=== PATIENT | female | born 1960 ===

== ENCOUNTER → 2021-08-16 10:17 | Outpatient (BNVA) | payer OTHER, SELFPAY | PROVIDERS: PCP Internal Medicine; Visit Provider Nurse Practitioner Family ==

== ENCOUNTER 2021-09-20 08:27 | Outpatient (REF) | payer OTHER, SELFPAY ==
[2021-09-20 11:13] LABS: Hematocrit 24.3 % (37-47); Mean Corpuscular Hemoglobin 20.1 pg (27.0-33.0); Mean Corpuscular Volume 71.9 fL (80-98); Mean Platelet Volume 10.7 fL (9.4-12.3); Platelet Count 454 X10*3/uL (160-400); Red Blood Count 3.38 X10*6/uL (4.20-5.50); Red Cell Distribution Width 17.6 % (11.0-16.0); White Blood Count 7.4 X10*3/uL (4.8-10.8)
[2021-09-20 11:20] LABS: Hemoglobin 6.8 g/dl (12.0-16.0)
[2021-09-20 11:49] LABS: Alanine Aminotransferase 21 U/L (0-31); Albumin Level 4.6 g/dL (3.5-5.0); Alkaline Phosphatase 139 U/L (39-117); Anion Gap 15 (12-20); Aspartate Amino Transferase 20 U/L (5-31); Bilirubin Total 0.4 mg/dL (0.0-1.0); Blood Urea Nitrogen 19 mg/dL (9-16); C Reactive Protein 0.55 mg/dL (< or = 0.50); Calcium 9.3 mg/dL (8.4-10.2); Carbon Dioxide 22 mmol/L (22-29); Chloride 108 mmol/L (96-108); Estimated Glomerular Filt Rate > 60; Glucose Random 118 mg/dL (60-115); Lipase 147 U/L (8-78); Potassium 4.6 mmol/L (3.3-5.1); Sodium 140 mmol/L (135-145); Total Protein 7.2 g/dL (6.5-8.0)
[2021-09-20 11:55] LABS: TSH reflex Free T4 2.63 uIU/mL (0.32-4.0)
[2021-09-20 12:40] LABS: Folate 14.4 ng/mL (> or = 4.0); Vitamin B12 249 pg/mL (200-900)
[2021-09-23 13:51] LABS: Transglutaminase Ab IgG <1.0 U/mL; Transglutaminase IgA <1.0 U/mL
[2021-09-29 09:51] LABS: Vitamin D 25-OH, D2 <4 ng/mL; Vitamin D 25-OH, D3 13 ng/mL; Vitamin D 25-OH, Total 13 ng/mL (30-100)
== END 2021-09-20 08:28 | disposition home or self-care (01) ==
LOC: HO.LAB 08:27
PROVIDERS: Referring Provider Internal Medicine; Visit Provider Nurse Practitioner Family
DX: R10.11 Right upper quadrant pain (principal); K58.9 Irritable bowel syndrome, unspecified; R19.7 Diarrhea, unspecified; E55.9 Vitamin D deficiency, unspecified; R14.0 Abdominal distension (gaseous); R06.02 Shortness of breath; K58.2 Mixed irritable bowel syndrome; I10 Essential (primary) hypertension
CPT/HCPCS: 36415; 80053; 82306; 82607; 82746; 83516; 83690; 84443; 85027; 86140

== ENCOUNTER 2021-09-20 12:35 | Observation (INO) | payer OTHER, SELFPAY ==
[2021-09-20] VITALS (12 sets, daily range): BP systolic 138–190; BP diastolic 52–96; PULSE 77–91; RESP 16–18; TEMP 36.2–37.1; O2SAT 97–100; BMI 25.8
--- NOTE | 2021-09-20 14:23 | ED.GENADULT ---
HPI - General Adult General Chief complaint: Recheck/Abnormal Lab/Rx Stated complaint: transfusion- sent by gastro Time Seen by Provider: 09/20/21 13:55 Source: patient Mode of arrival: ambulatory Limitations: no limitations History of Present Illness HPI narrative: 61-year-old female who presents emergency department for evaluation of anemia found on routine labs done by the patient's gastroenterology provider today. The patient states that since she went into menopause 3 years prior she has had problems with her stomach. She states that any time she eats she develops diarrhea. She was seen by her Gastroenterology provider, TRIPP Pickard. Patient had a CBC and the H&H was 6.8 and 24.3 with an MCV of 71.9. The patient has not noticed any blood in her stool or dark tarry stool. She states that she has noted over the past 5-6 weeks dyspnea on exertion which is gotten progressively worse. She denied lightheadedness, dizziness, chest pain, nausea, vomiting or abdominal pain. The patient states that her sister at age 45 of colon cancer and she has had at least 2 colonoscopies. She states her last colonoscopy was done on 03/03/2021. She denied being ill in any other way. She denied fever, chills, myalgias, arthralgias. Patient did complete her 2 shot Pfizer COVID 19 vaccination with her 2nd dose being given in March of 2021. Related Data Home Medications Medication Instructions Recorded Confirmed aspirin 81 mg tablet,delayed 81 mg PO DAILY 08/16/21 release atorvastatin 20 mg tablet 20 mg PO DAILY 08/16/21 chlorthalidone 50 mg tablet 50 mg PO DAILY 08/16/21 diltiazem HCl 60 mg 60 mg PO DAILY 08/16/21 capsule,extended release 12 hr duloxetine 30 mg capsule,delayed 30 mg PO BID 08/16/21 release paroxetine HCl 10 mg tablet mg PO 08/16/21 Previous Rx's Medication Instructions Recorded dicyclomine 10 mg capsule 10 mg PO QID 90 Days #360 cap 01/18/21 dicyclomine 20 mg tablet 20 mg PO QID 90 Days #360 tab 01/18/21 methylcellulose (laxative) 500 mg 500 mg PO DAILY #30 tab 08/16/21 tablet (Citrucel) docusate sodium 100 mg capsule 100 mg PO BEDTIME #30 cap 09/20/21 Allergies Allergy/AdvReac Type Severity Reaction Status Date / Time OZIEL Inhibitors Allergy Unknown ALL SORTS Unverified 08/11/20 17:18 [OZIEL INHIBITORS] OF DIFF RXNS hydrochlorothiazide Allergy Unknown dizziness Verified 03/30/20 00:00 meloxicam Allergy Unknown Verified 03/30/20 00:00 penicillin V Allergy Unknown Verified 03/30/20 00:00 Penicillins [PENICILLINS] Allergy Unknown SELLING,DIFF Unverified 08/11/20 17:18 BREATHING Sulfa (Sulfonamide Allergy Unknown RASH,ITCHY Unverified 08/11/20 17:18 Antibiotics) [SULFA (SULFONAMIDE ANTIBIOTICS)] Oziel Inhibitors Allergy Unknown Uncoded 03/30/20 00:00 Moexipril HCl Allergy Unknown Uncoded 03/30/20 00:00 Review of Systems Review of Systems: Yes all other systems are reviewed and are negative PMFSH Past Medical History [facility] Narrative: Past medical history: Hypertension, hyperlipidemia, hypoglycemia, osteoarthritis. Past surgical history: None. Social history: The patient denies tobacco, alcohol and drug use. Medical History (Updated 09/20/21 @ 16:30 by Vikas Dennis MD) Diverticulosis Surgical History (Updated 09/20/21 @ 08:42 by Alaina Munoz CMA) Hx of colonoscopy Family History Family History (Updated 08/16/21 @ 10:40 by Joelle Carter) Father Cancer Sister Colon cancer Social History Social History (Updated 08/16/21 @ 10:26 by Joelle Carter) Household Members: Family Alcohol intake: never Patient Tobacco Use Status: Never used Tobacco Use of substances other than those prescribed or required for medical reasons: No Advance Directives: No Physical Exam Vital Signs: Vital Signs: Last Vital Signs Temp 98.7 F 09/20/21 15:49 Pulse 77 09/20/21 15:49 Resp 16 09/20/21 15:49 BP 164/52 H 09/20/21 15:49 Pulse Ox 99 09/20/21 15:49 Body Mass Index 25.8 Const: Other: Very pleasant cooperative female patient, she does appear to be pale, she answers all questions appropriately, she is not in distress HENMT: Head: Yes normal to inspection, Yes normocephalic and Yes atraumatic Ears: external ears normal General nose exam: Normal external nose present Face and sinus: Yes normal facial exam Mouth: Normal oral and palatal mucosa present Throat: Yes posterior oropharynx normal Eyes: General: appearance normal, both eyes and all related structures Pupils: Equal, round and reactive pupils present Neck: Neck: Yes normal visual inspection, Yes no lymphadenopathy, Yes trachea midline and Yes supple Chest: Chest palpation & inspection: normal inspection of the chest and normal palpation of entire chest wall Resp: Effort & Inspection: normal respiratory effort and able to speak in complete sentences Auscultation: clear to auscultation bilaterally Cardio: Rate: regular rate Rhythm: regular rhythm Heart sounds: S1 normal heart sound present, S2 normal heart sound present and no murmurs GI: Inspection: Yes normal to inspection Palpation (GI): Soft to palpation, nontender and no guarding Auscultation: normal bowel sounds Rectal Exam - Female: visual inspection normal, normal sphincter tone and heme positive stool (Stool was soft, brown) : General: Yes no CVA tenderness Back/Spine/Pelvis: Back: no CVA tenderness Skin: General skin exam: no rashes or lesions noted Neuro: Cranial nerves: Yes CN's II-XII intact bilaterally and Yes Equal, round and reactive pupils present Cognition (Neuro): normal cognition Motor exam (neuro): 5/5 motor strength present throughout Extrem: General: Yes normal to inspection Psych: Appearance: grossly normal Speech and movement: Normal speech and movement present Affect: normal affect Attitude: cooperative Thought process: Normal thought process present Thought content: Normal thought content present Course Course Course Narrative: 61-year-old female who was referred to the emergency department from her GI provider for evaluation of microcytic anemia which was unexpected. The patient sees the GI provider for diarrhea after eating which is been going on for at least 3 years since the patient started her menopause. The patient did not have any abdominal pain and she did not notice and change in her bowel movements except for her diarrhea. She has been having dyspnea on exertion for 5 weeks which is gotten progressively worse. Vital signs revealed an elevated blood pressure of 173/69, otherwise were unremarkable. The patient had no abdominal tenderness. On her rectal examination she did have soft brown stool which was Hemoccult positive. I did order a CBC, CMP, lipase, PT/INR, PTT, type and screen, COVID-19 test, iron profile. I also ordered 2 units of packed red blood cells transfused. 1628: Laboratory evaluation: CBC did confirm that she is anemic with an H&H of 6.9 and 24.9. She has a low white blood count of 3420, platelet count of 337221. PT/INR PTT were normal. Chemistries revealed an elevated BUN of 18, elevated glucose of 127. Alk-phos was elevated 143. Iron studies are consistent with iron deficient anemia. I did discuss the patient's presentation with the covering hospitalist the patient will be admitted for transfusions and further evaluation of her iron deficient anemia. Of note, on my bedside Hemoccult test I felt that the patient was Hemoccult positive, the 1 that I sent to lab however was interpreted as Hemoccult negative by the laboratory service. Medical Decision Making Lab Data Result diagrams: 09/20/21 14:26 09/20/21 14:26 Labs: Lab Results 09/20/21 09/20/21 09/20/21 Range/Units 14:26 14:26 14:26 WBC 7.7 (4.8-10.8) X10*3/uL RBC 3.42 L (4.20-5.50) X10*6/uL Hgb 6.9 L* (12.0-16.0) g/dl Hct 24.9 L (37-47) % MCV 72.8 L (80-98) fL MCH 20.2 L (27.0-33.0) pg MCHC 27.7 L (31.0-35.0) g/dl RDW 17.6 H (11.0-16.0) % Plt Count 460 H (160-400) X10*3/uL MPV 10.3 (9.4-12.3) fL Immature Gran % (Auto) 0.3 (0.0-0.4) % Neut % (Auto) 55.1 (45-73) % Lymph % (Auto) 33.6 (20-40) % [place] % (Auto) 7.1 (2-11) % Eos % (Auto) 3.4 (0-4) % Baso % (Auto) 0.5 (0-2) % Lymph # (Auto) 2.6 (1.2-4.9) X10*3/uL [place] # (Auto) 0.6 (0.1-1.2) X10*3/uL Eos # (Auto) 0.3 (0.0-0.4) X10*3/uL Baso # (Auto) 0.0 (0.0-0.2) X10*3/uL Abs Immat Gran (auto) 0.02 (0.00-0.03) X10*3/uL Absolute Neuts (auto) 4.3 (2.0-8.3) X10*3/uL Absolute Nucleated RBC 0.000 (0.0-0.012) X10*3/uL Nucleated RBC % (auto) 0.0 (0.0-0.2) /100WBC PT 11.9 (9.9-13.0) SEC INR 1.0 (0.9-1.1) APTT 37.6 (24.1-38.0) SEC Sodium 139 (135-145) mmol/L Potassium 4.0 (3.3-5.1) mmol/L Chloride 106 (96-108) mmol/L Carbon Dioxide 22 (22-29) mmol/L Anion Gap 15 (12-20) BUN 18 H (9-16) mg/dL Creatinine 0.94 (0.5-1.4) mg/dL Estim Creat Clear Calc 65.7 Estimated GFR > 60 Random Glucose 127 H (60-115) mg/dL Calcium 9.5 (8.4-10.2) mg/dL Iron 14 L (30-160) mcg/dL TIBC 594 H (228-428) mcg/dL % Saturation 2 L (15-50) % Unsat Iron Binding 580 ug/dL Total Bilirubin 0.4 (0.0-1.0) mg/dL AST 20 (5-31) U/L ALT 23 (0-31) U/L Alkaline Phosphatase 143 H (39-117) U/L Total Protein 7.5 (6.5-8.0) g/dL Albumin 4.8 (3.5-5.0) g/dL Lipase 70 (8-78) U/L Stool Occult Blood (NEGATIVE) COVID-19 (DEYANIRA) (Negative) COVID-19 Clin Com Blood Type Antibody Screen Crossmatch 09/20/21 09/20/21 09/20/21 Range/Units 14:47 14:47 15:17 WBC (4.8-10.8) X10*3/uL RBC (4.20-5.50) X10*6/uL Hgb (12.0-16.0) g/dl Hct (37-47) % MCV (80-98) fL MCH (27.0-33.0) pg MCHC (31.0-35.0) g/dl RDW (11.0-16.0) % Plt Count (160-400) X10*3/uL MPV (9.4-12.3) fL Immature Gran % (Auto) (0.0-0.4) % Neut % (Auto) (45-73) % Lymph % (Auto) (20-40) % [place] % (Auto) (2-11) % Eos % (Auto) (0-4) % Baso % (Auto) (0-2) % Lymph # (Auto) (1.2-4.9) X10*3/uL [place] # (Auto) (0.1-1.2) X10*3/uL Eos # (Auto) (0.0-0.4) X10*3/uL Baso # (Auto) (0.0-0.2) X10*3/uL Abs Immat Gran (auto) (0.00-0.03) X10*3/uL Absolute Neuts (auto) (2.0-8.3) X10*3/uL Absolute Nucleated RBC (0.0-0.012) X10*3/uL Nucleated RBC % (auto) (0.0-0.2) /100WBC PT (9.9-13.0) SEC INR (0.9-1.1) APTT (24.1-38.0) SEC Sodium (135-145) mmol/L Potassium (3.3-5.1) mmol/L Chloride (96-108) mmol/L Carbon Dioxide (22-29) mmol/L Anion Gap (12-20) BUN (9-16) mg/dL Creatinine (0.5-1.4) mg/dL Estim Creat Clear Calc Estimated GFR Random Glucose (60-115) mg/dL Calcium (8.4-10.2) mg/dL Iron (30-160) mcg/dL TIBC (228-428) mcg/dL % Saturation (15-50) % Unsat Iron Binding ug/dL Total Bilirubin (0.0-1.0) mg/dL AST (5-31) U/L ALT (0-31) U/L Alkaline Phosphatase (39-117) U/L Total Protein (6.5-8.0) g/dL Albumin (3.5-5.0) g/dL Lipase (8-78) U/L Stool Occult Blood NEGATIVE (NEGATIVE) COVID-19 (DEYANIRA) Negative (Negative) COVID-19 Clin Com See Note Blood Type A Positive Antibody Screen NEGATIVE Crossmatch See Detail Discharge Plan Discharge Clinical Impression: Microcytic anemia Patient Disposition: Admitted As Inpatient Prescriptions: No Action dicyclomine 20 mg tablet 20 mg PO QID 90 Days Qty: 360 RF: 3 dicyclomine 10 mg capsule 10 mg PO QID 90 Days Qty: 360 RF: 3 Citrucel 500 mg tablet 500 mg PO DAILY Qty: 30 RF: 2 docusate sodium 100 mg capsule 100 mg PO BEDTIME Qty: 30 RF: 3
[2021-09-20 14:37] LABS: MANUAL DIFF FLAG NO
[2021-09-20 14:40] LABS: Basophils Percent Auto 0.5 % (0-2); Eosinophils Absolute Auto 0.3 X10*3/uL (0.0-0.4); Eosinophils Percent Auto 3.4 % (0-4); Hematocrit 24.9 % (37-47); Imm Gran Abs Auto 0.02 X10*3/uL (0.00-0.03); Imm Gran Pct Auto 0.3 % (0.0-0.4); Lymphocytes Absolute Auto 2.6 X10*3/uL (1.2-4.9); Lymphocytes Percent Auto 33.6 % (20-40); Mean Corpuscular HGB Conc 27.7 g/dl (31.0-35.0); Mean Corpuscular Hemoglobin 20.2 pg (27.0-33.0); Mean Corpuscular Volume 72.8 fL (80-98); Mean Platelet Volume 10.3 fL (9.4-12.3); Monocytes Absolute Auto 0.6 X10*3/uL (0.1-1.2); Monocytes Percent Auto 7.1 % (2-11); Neutrophils Absolute Auto 4.3 X10*3/uL (2.0-8.3); Neutrophils Percent Auto 55.1 % (45-73); Platelet Count 460 X10*3/uL (160-400); Red Blood Count 3.42 X10*6/uL (4.20-5.50); Red Cell Distribution Width 17.6 % (11.0-16.0); White Blood Count 7.7 X10*3/uL (4.8-10.8)
[2021-09-20 14:42] LABS: Prothrombin Time 11.9 SEC (9.9-13.0)
[2021-09-20 14:45] LABS: Partial Thromboplastin Time 37.6 SEC (24.1-38.0)
[2021-09-20 14:46] LABS: Hemoglobin 6.9 g/dl (12.0-16.0)
[2021-09-20 15:25] LABS: OBS Int Ctl Valid YES; OBS1 NEGATIVE (NEGATIVE)
[2021-09-20 15:27] LABS: COVID-19 Test Negative (Negative)
[2021-09-20 15:59] LABS: Alanine Aminotransferase 23 U/L (0-31); Albumin Level 4.8 g/dL (3.5-5.0); Alkaline Phosphatase 143 U/L (39-117); Anion Gap 15 (12-20); Aspartate Amino Transferase 20 U/L (5-31); Bilirubin Total 0.4 mg/dL (0.0-1.0); Blood Urea Nitrogen 18 mg/dL (9-16); Calcium 9.5 mg/dL (8.4-10.2); Carbon Dioxide 22 mmol/L (22-29); Chloride 106 mmol/L (96-108); Creatinine Clr Calc Pharmacy 65.7; Estimated Glomerular Filt Rate > 60; Glucose Random 127 mg/dL (60-115); Iron 14 mcg/dL (30-160); Lipase 70 U/L (8-78); Percent Iron Saturation 2 % (15-50); Sodium 139 mmol/L (135-145); Total Iron Binding Capacity 594 mcg/dL (228-428); Total Protein 7.5 g/dL (6.5-8.0); Unsaturated Iron Binding 580 ug/dL
--- NOTE | 2021-09-20 16:35 | P.HPHOSP_ITS ---
History of Present Illness Date of Service: 09/20/21 Chief Complaint: Shortness of breath 61-year-old female sent in from a GI office for anemia of 6.8. Patient has been feeling short of breath and fatigue for about 6 weeks, worse on exertion. She has also been complaining of on and off diarrhea for 3 years. For this she has been following with Gastroenterology and has been decently treated with Bentyl. Patient is postmenopausal and denies any gynecological or gastroenterology bleeding. Patient is on aspirin for unconfirmed, suspected coronary disease. In emergency department hemoglobin was 6.9, labs consistent with iron deficiency with a saturation 2%. Review of Systems Review of Systems: Constitutional: Denies fever, denies Chills Eyes: denies blurry vision ENT: denies sore throat CVS: denies chest pain Respiratory: dyspnea GI: no abdominal pain : denies dysuria MSK: denies neck pain Skin: denies rash Neuro: denies specific motor weakness Psych: denies suicidal ideation Endocrine: denies heat/cold intolerance Hematologic: denies easy bleeding Allergy: denies hives [facility] Medical History (Updated 09/20/21 @ 16:34 by Anil Mccullough MD) Diverticulosis HLD (hyperlipidemia) HTN (hypertension) Iron (Fe) deficiency anemia Family History (Updated 09/20/21 @ 16:35 by Anil Mccullough MD) Father Cancer Sister Colon cancer Brother CAD (coronary artery disease) Pertinent family history: . Surgical History (Updated 09/20/21 @ 08:42 by Alaina Munoz CMA) Hx of colonoscopy Social History (Updated 08/16/21 @ 10:26 by Joelle Carter) Household Members: Family Alcohol intake: never Patient Tobacco Use Status: Never used Tobacco Use of substances other than those prescribed or required for medical reasons: No Advance Directives: No Meds Allergies Allergy/AdvReac Type Severity Reaction Status Date / Time OZIEL Inhibitors Allergy Unknown ALL SORTS Unverified 08/11/20 17:18 [OZIEL INHIBITORS] OF DIFF RXNS hydrochlorothiazide Allergy Unknown dizziness Verified 03/30/20 00:00 meloxicam Allergy Unknown Verified 03/30/20 00:00 penicillin V Allergy Unknown Verified 03/30/20 00:00 Penicillins [PENICILLINS] Allergy Unknown SELLING,DIFF Unverified 08/11/20 17:18 BREATHING Sulfa (Sulfonamide Allergy Unknown RASH,ITCHY Unverified 08/11/20 17:18 Antibiotics) [SULFA (SULFONAMIDE ANTIBIOTICS)] Oziel Inhibitors Allergy Unknown Uncoded 03/30/20 00:00 Moexipril HCl Allergy Unknown Uncoded 03/30/20 00:00 Active Medications: Current Medications Acetaminophen (Acetaminophen 325 Mg Tablet) 650 mg PO Q6H PRN PRN Reason: Pain, Mild (Pain Scale 1-3) Amlodipine Besylate (Amlodipine Besylate 5 Mg Tablet) 5 mg PO DAILY [facility]; Protocol Cyanocobalamin (Cyanocobalamin (Vitamin B-12) 1,000 Mcg Tablet) 1,000 mcg PO DAILY [facility] Pharmacy Consult (Consult Rx Perform Med Rec) 1 each MISCELLANE ONCE PRN PRN Reason: Consult order Sodium Chloride (0.9 % Sodium Chloride Flush 3 Ml Syringe) 3 ml IVFLUSH QSHIFT [facility] Home Medications Medication Instructions Recorded Confirmed Last Taken Type aspirin 81 mg tablet,delayed 81 mg PO DAILY 08/16/21 Unknown History release atorvastatin 20 mg tablet 20 mg PO DAILY 08/16/21 Unknown History chlorthalidone 50 mg tablet 50 mg PO DAILY 08/16/21 Unknown History diltiazem HCl 60 mg 60 mg PO DAILY 08/16/21 Unknown History capsule,extended release 12 hr duloxetine 30 mg capsule,delayed 30 mg PO BID 08/16/21 Unknown History release paroxetine HCl 10 mg tablet mg PO 08/16/21 Unknown History Physical Exam Vital Signs and Narrative: Vital Signs: Last Vital Signs Temp 98.7 F 09/20/21 15:49 Pulse 77 09/20/21 15:49 Resp 16 09/20/21 15:49 BP 164/52 H 09/20/21 15:49 Pulse Ox 99 09/20/21 15:49 Body Mass Index 25.8 General: no acute distress HEENT: atraumatic Neck: normal to visual inspection CVS: S1, S2, RRR Resp: CTA bilateral Chest: non tender GI: soft, non tender, non distended : no CVA tenderness Skin: no rashes Extremities: no edema Neuro: Oriented X3, grossly intact Psych: cooperative Results Labs CBC and Chem 7: 09/20/21 14:26 09/20/21 14:26 Labs: Laboratory Results - last 24 hr 09/20/21 09/20/21 09/20/21 14:26 14:26 14:26 MCV 72.8 L MCH 20.2 L MCHC 27.7 L RDW 17.6 H Plt Count 460 H MPV 10.3 Immature Gran % (Auto) 0.3 Neut % (Auto) 55.1 Lymph % (Auto) 33.6 [place] % (Auto) 7.1 Eos % (Auto) 3.4 Baso % (Auto) 0.5 Lymph # (Auto) 2.6 [place] # (Auto) 0.6 Eos # (Auto) 0.3 Baso # (Auto) 0.0 Abs Immat Gran (auto) 0.02 Absolute Neuts (auto) 4.3 Absolute Nucleated RBC 0.000 Nucleated RBC % (auto) 0.0 PT 11.9 INR 1.0 APTT 37.6 Anion Gap 15 Estim Creat Clear Calc 65.7 Estimated GFR > 60 Random Glucose 127 H Calcium 9.5 Iron 14 L TIBC 594 H % Saturation 2 L Unsat Iron Binding 580 Total Bilirubin 0.4 AST 20 ALT 23 Alkaline Phosphatase 143 H Total Protein 7.5 Albumin 4.8 Lipase 70 Stool Occult Blood COVID-19 (DEYANIRA) COVID-19 [employer]ix Com Blood Type Antibody Screen Crossmatch 09/20/21 09/20/21 09/20/21 14:47 14:47 15:17 MCV MCH MCHC RDW Plt Count MPV Immature Gran % (Auto) Neut % (Auto) Lymph % (Auto) [place] % (Auto) Eos % (Auto) Baso % (Auto) Lymph # (Auto) [place] # (Auto) Eos # (Auto) Baso # (Auto) Abs Immat Gran (auto) Absolute Neuts (auto) Absolute Nucleated RBC Nucleated RBC % (auto) PT INR APTT Anion Gap Estim Creat Clear Calc Estimated GFR Random Glucose Calcium Iron TIBC % Saturation Unsat Iron Binding Total Bilirubin AST ALT Alkaline Phosphatase Total Protein Albumin Lipase Stool Occult Blood NEGATIVE COVID-19 (DEYANIRA) Negative COVID-Omnisens See Note Blood Type A Positive Antibody Screen NEGATIVE Crossmatch See Detail Assessment and Plan (1) HLD (hyperlipidemia): Status: Acute (2) HTN (hypertension): Status: Acute (3) Iron (Fe) deficiency anemia: Status: Acute 61F presented with sob, fatigue found to have iron defeciency anemia Symptomatic iron deficiency anemia Likely subacute to chronic GI bleed versus malabsorption Plan for 2 units PRBC Follow-up CBC GI eval Hold aspirin Hypertension Currently not on meds Will start amlodipine 5 mg daily Hyperlipidemia Statin DVT prophylaxis - mechanical due to possible GI bleed Quality Stroke Does the patient have a stroke diagnosis?: No VTE Prior VTE?: No VTE Risk Level:: Medical - moderate - high VTE Device Contraindication: N/A - Device Ordered VTE Drug Contraindication: Treatment Not Tolerated
--- NOTE | 2021-09-20 18:13 | PC.NURSE ---
report to [facility] [place]
--- NOTE | 2021-09-20 22:23 | PC.NURSE ---
second unit of blood not started, blood returned to the blood bank d/t blood clots noted in the chamber were the filter is.
[2021-09-20] MEDS: Atorvastatin Calcium 20 MG TABLET PO (22:32)
[2021-09-20] MEDS: 0.9 % Sodium Chloride Flush 3 ML SYRINGE IVFLUSH (23:29)
[2021-09-21] VITALS (8 sets, daily range): BP systolic 150–182; BP diastolic 60–94; PULSE 81–92; RESP 16–20; TEMP 36.6–37.2; O2SAT 97–100; BMI 25.8
[2021-09-21 07:54] LABS: Hematocrit 33.6 % (37-47); Mean Corpuscular HGB Conc 29.8 g/dl (31.0-35.0); Mean Corpuscular Hemoglobin 22.8 pg (27.0-33.0); Mean Corpuscular Volume 76.7 fL (80-98); Mean Platelet Volume 10.1 fL (9.4-12.3); Platelet Count 394 X10*3/uL (160-400); Red Blood Count 4.38 X10*6/uL (4.20-5.50); Red Cell Distribution Width 19.5 % (11.0-16.0); White Blood Count 7.7 X10*3/uL (4.8-10.8)
--- NOTE | 2021-09-21 08:06 | P.CNGI_ITS ---
History of Present Illness Data of Consult Service Date: 09/21/21 Requesting physician: Anil Mccullough Primary Care Provider: None Physician HPI Reason for consult: Severe anemia 61 YF admitted to [facility] yesterday with 6 week hx of fatigue and SOB on exertion associated with worsening anemia. Patient is being followed by Dr. 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 HPI narrative: 61-year-old female who presents emergency department for evaluation of anemia found on routine labs done by the patient's gastroenterology provider today.? The patient states that since she went into menopause 3 years prior she has had problems with her stomach.? She states that any time she eats she develops diarrhea.? She was seen by her Gastroenterology provider, TRIPP Pickard.? Patient had a CBC and the H&H was 6.8 and 24.3 with an MCV of 71.9.? The patient has not noticed any blood in her stool or dark tarry stool.? She states that she has noted over the past 5-6 weeks dyspnea on exertion which is gotten progressively worse.? She denied lightheadedness, dizziness, chest pain, nausea, vomiting or abdominal pain. She denied being ill in any other way.? She denied fever, chills, myalgias, arthralgias.? Patient did complete her 2 shot Pfizer COVID 19 vaccination with her 2nd dose being given in March of 2021. Patient complains of intermittent heartburn x 20 yrs. Swallowing can be painful intermittently She denies nausea, vomiting, change in appetite or weight. Pt complains of post prandial diarrhea and takes Dicyclomine daily She denies black stools or rectal bleeding. Patient denies major cardiac or pulmonary problems, loud snoring or sleep apnea. She admits to sleep disturbance. Denies problems with anesthesia in the past. Pt takes a baby aspirin daily and denies being on chronic anticoagulation. She takes Tylenol arthritis every morning for joint pains The patient states that her sister at age 45 of colon cancer. Patient denies known family history of colon polyps, or other GI malignancies. Two of her sisters have had hysterectomies (unclear if surgery was performed for cancer). 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 Labs showed H & H of 6.9 & 24.9. Iron studies were consistent with iron deficiency anemia. Patient was transfused 2 units of packed red blood cells and H&H improved to 10 in 33.6 today. IMAGING STUDIES: No recent GI imaging studies ENDOSCOPIC STUDIES: 07/[address] Gage and showed diverticulosis and no polyps. Negative colonoscopy in 2014 Review of Systems Constitutional: Constitutional: Reports fatigue, Denies fever(s), Reports headache(s) and Denies weight loss Eyes: Eyes: Denies eye discharge and Denies irritation ENT: Reports Normal hearing present, Reports dysphagia, Denies dizziness and Reports headache(s) Cardiovascular: Cardiovascular: Denies chest pain, Denies leg edema and Reports dyspnea on exertion Respiratory: Respiratory: Denies cough and Reports dyspnea on exertion Gastrointestinal: Gastrointestinal: Denies abdominal pain, Denies change in bowel habits, Reports dysphagia and Reports heartburn Genitourinary: Genitourinary: Denies difficulty voiding and Denies dysuria Musculoskeletal: Musculoskeletal: Denies back pain and Reports arthralgias Integumentary/Breasts: Skin/Breast: Denies pruritus, Denies rash and Denies jaundice Neurologic: Reports Normal hearing present, Denies Abnormal speech present, Denies dizziness, Reports headache(s) and Denies seizure-like activity Psychiatric: Psychiatric: Denies anxiety, Denies depression and Denies panic attacks Endocrine: Endocrine: Denies cold intolerance, Reports fatigue, Denies flushing and Denies heat intolerance PMFSH Past Medical History Medical History (Updated 09/20/21 @ 16:34 by Anil Mccullough MD) Diverticulosis HLD (hyperlipidemia) HTN (hypertension) Iron (Fe) deficiency anemia Family History Family History (Updated 09/20/21 @ 16:35 by Anil Mccullough MD) Father Cancer Sister Colon cancer Brother CAD (coronary artery disease) Surgical History Surgical History (Updated 09/20/21 @ 08:42 by Alaina Munoz CMA) Hx of colonoscopy Social History Social History (Updated 08/16/21 @ 10:26 by Joelle Carter) Household Members: Spouse Housing: House Alcohol intake: never Patient Tobacco Use Status: Never used Tobacco Meds Allergies Allergy/AdvReac Type Severity Reaction Status Date / Time penicillin V Allergy Severe Anaphylaxis Verified 09/20/21 23:27 meloxicam Allergy Intermediate Nausea, Verified 09/20/21 23:27 lightheaded REINALDO Inhibitors Allergy Unknown ALL SORTS Verified 09/20/21 23:27 [REINALDO INHIBITORS] OF DIFF RXNS hydrochlorothiazide Allergy Unknown dizziness Verified 09/20/21 23:27 Sulfa (Sulfonamide Allergy Unknown RASH,ITCHY Verified 09/20/21 23:27 Antibiotics) [SULFA (SULFONAMIDE ANTIBIOTICS)] Moexipril HCl Allergy Unknown Mouth, Uncoded 09/20/21 23:27 cheek & feet tingling. shaking, nausea Active Medications: Current Medications Acetaminophen (Acetaminophen 325 Mg Tablet) 650 mg PO Q6H PRN PRN Reason: Pain, Mild (Pain Scale 1-3) Amlodipine Besylate (Amlodipine Besylate 5 Mg Tablet) 5 mg PO DAILY [facility]; Protocol Atorvastatin Calcium (Atorvastatin Calcium 20 Mg Tablet) 20 mg PO BEDTIME [facility] Last Admin: 09/20/21 22:32 Dose: 20 mg Documented by: Cyanocobalamin (Cyanocobalamin (Vitamin B-12) 1,000 Mcg Tablet) 1,000 mcg PO DAILY [facility] Dicyclomine HCl (Dicyclomine Hcl 10 Mg Capsule) 10 mg PO QIDWMHS [facility] Famotidine (Famotidine 20 Mg Tablet) 20 mg PO DAILY PRN PRN Reason: Acid Reflux Pharmacy Consult (Consult Rx Perform Med Rec) 1 each MISCELLANE ONCE PRN PRN Reason: Consult order Sodium Chloride (0.9 % Sodium Chloride Flush 3 Ml Syringe) [facility] Admin: 09/20/21 23:29 Dose: 3 ml Documented by: Home Medications Medication Instructions Recorded Confirmed Last Taken Type aspirin 81 mg tablet,delayed 81 mg PO DAILY 08/16/21 09/20/21 09/20/21 History release atorvastatin 20 mg tablet 20 mg PO BEDTIME 08/16/21 09/20/21 09/19/21 History diltiazem HCl 60 mg 60 mg PO DAILY 08/16/21 09/20/21 09/20/21 History capsule,extended release 12 hr duloxetine 30 mg capsule,delayed 30 mg PO BID 08/16/21 09/20/21 09/20/21 History release paroxetine HCl 10 mg tablet 20 mg PO DAILY 08/16/21 09/20/21 09/20/21 History Probiotic 1 Billion Natures Bounty 1 cap PO DAILY 09/20/21 09/20/21 History acetaminophen 650 mg 650 mg PO DAILY 09/20/21 09/20/21 09/20/21 History tablet,extended release (Tylenol Arthritis Pain) dicyclomine 10 mg capsule 1 cap PO QIDWMHS 09/20/21 09/20/21 09/19/21 History dicyclomine 20 mg tablet 1 tab PO QIDWMHS 09/20/21 09/20/21 09/19/21 History famotidine 20 mg tablet 20 mg PO DAILY PRN 09/20/21 09/20/21 09/20/21 History Physical Exam Vital Signs: Vital Signs: Last Vital Signs Temp 97.8 F 09/21/21 07:25 Pulse 84 09/21/21 07:25 Resp 20 09/21/21 07:25 BP 167/78 H 09/21/21 07:25 Pulse Ox 98 09/21/21 07:25 Body Mass Index 25.8 Const: General: healthy appearing and no acute distress Nutritional Appearance: average body habitus Orientation/consciousness: patient oriented x3 Limitations: no limitations HENMT: Head: Yes normal to inspection Ears: hearing grossly normal bila terally Mouth: Normal oral and palatal mucosa present Eyes: Sclerae: sclerae normal Pupils: Equal, round and reactive pupils present Neck: Neck: Yes normal visual inspection Chest: Chest palpation & inspection: normal inspection of the chest Resp: Effort & Inspection: normal respiratory effort Auscultation: clear to auscultation bilaterally Cardio: Palpation: normal PMI Rate: regular rate Rhythm: regular rhythm Heart sounds: S1 normal heart sound present, S2 normal heart sound present and no murmurs GI: Palpation (GI): Soft to palpation, nontender and No hepatosplenomegaly present Auscultation: normal bowel sounds Rectal Exam - Female: deferred Skin: General skin exam: no rashes or lesions noted Neuro: General: patient oriented x3, gait normal and moves all extremities Cranial nerves: Yes Equal, round and reactive pupils present and Yes Normal hearing present Speech: No Abnormal speech present Psych: Appearance: grossly normal Mental Status: mental status grossly normal Results Labs CBC & Chem 7: 09/21/21 07:29 09/21/21 07:29 Labs: Short CBC 09/20/21 09/21/21 Range/Units 14:26 07:29 WBC 7.7 7.7 (4.8-10.8) X10*3/uL Hgb 6.9 L* 10.0 L D (12.0-16.0) g/dl Hct 24.9 L 33.6 L D (37-47) % Plt Count 460 H 394 (160-400) X10*3/uL BMP 09/20/21 14:26 Sodium 139 Potassium 4.0 Chloride 106 Carbon Dioxide 22 BUN 18 H Creatinine 0.94 Calcium 9.5 Liver Function 09/20/21 Range/Units 14:26 Total Bilirubin 0.4 (0.0-1.0) mg/dL AST 20 (5-31) U/L ALT 23 (0-31) U/L Alkaline Phosphatase 143 H (39-117) U/L Albumin 4.8 (3.5-5.0) g/dL Assessment and Plan (1) Iron (Fe) deficiency anemia: Status: Acute 61 YM with Htn, hyperlipidemia and HAYLIE admitted with worsening fatigue and shortness of breath due to worsening anemia. Pt has past evaluation with screening colonoscopies x 2 which were negative except for diverticulosis. Last colonoscopy was a year ago. Pt complains of GERD symptoms for the past several yrs and takes Famotidine prn. Iron deficiency anemia is likely due to an upper GI source - erosive esophagitis, gastritis, peptic ulcer disease or upper GI AVMs. H & H has improved to 10 & 33 post blood transfusion. RECOMMENDATIONS: Proceed with upper endoscopy today. Procedure and potential complications including bleeding, perforation, drug reaction and aspiration were reviewed with the patient. Patient would like to proceed with EGD. Procedure is scheduled today with Dr. Berg. She is scheduled for a follow-up appointment in the GI clinic on 10/04/2021 with Julia Baker NP. Procedures Date of Service Date of Service: 09/21/21
[2021-09-21] MEDS: 0.9 % Sodium Chloride Flush 3 ML SYRINGE IVFLUSH ×2 (08:09→21:22)
[2021-09-21] MEDS: Cyanocobalamin (Vitamin B-12) 1,000 MCG TABLET 1000 MCG PO (08:09)
[2021-09-21] MEDS: Dicyclomine HCl 10 MG CAPSULE PO (08:09)
[2021-09-21] MEDS: amLODIPine Besylate 5 MG TABLET PO (08:09)
[2021-09-21 08:16] LABS: Anion Gap 14 (12-20); Blood Urea Nitrogen 16 mg/dL (9-16); Calcium 9.3 mg/dL (8.4-10.2); Carbon Dioxide 23 mmol/L (22-29); Chloride 109 mmol/L (96-108); Creatinine Clr Calc Pharmacy 69.4; Estimated Glomerular Filt Rate > 60; Glucose Fasting 136 mg/dL (60-99); Potassium 4.6 mmol/L (3.3-5.1); Sodium 141 mmol/L (135-145)
--- NOTE | 2021-09-21 13:12 | MHC.CM.PN ---
09/21/21 VOSS Female 61 DX Anemia. VAC x2 Moderna She lives with family. She is independent all functional mobility. Patient scope scheduled for today. It is anticipated that the patient will be discharged later today. DP home no services family will provide transportation.
--- NOTE | 2021-09-21 14:07 | PC.NURSE ---
Patient had 11 rings and 1 earring removed and secured in a denture cup labeled with her name. She has 2 partials, also removed. Both items place in cabinet in PACU. 2 rings - unable to remove secured with tape. Earring right ear, unable to remove- secured with tape.
[2021-09-21] MEDS: Lactated Ringers 1,000 ML 50 ML IVCONT (14:09)
--- NOTE | 2021-09-21 14:13 | MHC.SHP ---
Pre-Procedural Eval Section A Date of Service: 09/21/21 The patient is an INPATIENT: Yes The History & Physical has been completed within 30 days and I have reviewed it.: Yes Section B Chief Complaint: anemia Allergies: Allergies Allergy/AdvReac Type Severity Reaction Status Date / Time penicillin V Allergy Severe Anaphylaxis Verified 09/20/21 23:27 meloxicam Allergy Intermediate Nausea, Verified 09/20/21 23:27 lightheaded REINALDO Inhibitors Allergy Unknown ALL SORTS Verified 09/20/21 23:27 [REINALDO INHIBITORS] OF DIFF RXNS hydrochlorothiazide Allergy Unknown dizziness Verified 09/20/21 23:27 Sulfa (Sulfonamide Allergy Unknown RASH,ITCHY Verified 09/20/21 23:27 Antibiotics) [SULFA (SULFONAMIDE ANTIBIOTICS)] Moexipril HCl Allergy Unknown Mouth, Uncoded 09/20/21 23:27 cheek & feet tingling. shaking, nausea Plan Diagnosis/Plan: Unchanged I have reviewed the history and physical and performed a pertinent physical examination on my patient. No changes have occurred unless specified. EGD to r/o upper GI cause of GI blood loss or malabsorption. She denies overt GI bleeding
--- NOTE | 2021-09-21 14:14 | PM.OP ---
Brief Operative Note Date of Service: 09/21/21 Pre-op diagnosis: anemia Post-op diagnosis: same Procedure: see op note Surgeon: Gela Berg MD Anesthesia: MAC Was an Sign Painter Helper used for this Procedure?: No Estimated blood loss (mL): 0 Condition: stable Disposition: PACU
--- NOTE | 2021-09-21 14:42 | P.CONAN_ITS ---
HPI - Anesthesia Eval Consult details Narrative: 61 F for EGD PMFSH Active Problems Active Problems: All Active Problems (Updated 09/20/21 @ 16:34 by Anil Mccullough MD) HLD (hyperlipidemia) (Acute) HTN (hypertension) (Acute) Iron (Fe) deficiency anemia (Acute) Past Medical History Medical History Diverticulosis HLD (hyperlipidemia) HTN (hypertension) Iron (Fe) deficiency anemia Family History Family History Father Cancer Sister Colon cancer Brother CAD (coronary artery disease) Family history of problems with anesthesia: No Surgical History Surgical History Hx of colonoscopy History of Problems with Anesthesia: No Social History Social History Household Members: Spouse Housing: House Alcohol intake: never Patient Tobacco Use Status: Never used Tobacco service: No Current occupational status: employed Meds Allergies Allergy/AdvReac Type Severity Reaction Status Date / Time penicillin V Allergy Severe Anaphylaxis Verified 09/20/21 23:27 meloxicam Allergy Intermediate Nausea, Verified 09/20/21 23:27 lightheaded REINALDO Inhibitors Allergy Unknown ALL SORTS Verified 09/20/21 23:27 [REINALDO INHIBITORS] OF DIFF RXNS hydrochlorothiazide Allergy Unknown dizziness Verified 09/20/21 23:27 Sulfa (Sulfonamide Allergy Unknown RASH,ITCHY Verified 09/20/21 23:27 Antibiotics) [SULFA (SULFONAMIDE ANTIBIOTICS)] Moexipril HCl Allergy Unknown Mouth, Uncoded 09/20/21 23:27 cheek & feet tingling. shaking, nausea Active Medications: Current Medications Acetaminophen (Acetaminophen 325 Mg Tablet) 650 mg PO Q6H PRN PRN Reason: Pain, Mild (Pain Scale 1-3) Amlodipine Besylate (Amlodipine Besylate 5 Mg Tablet) 5 mg PO DAILY [facility]; Protocol Last Admin: 09/21/21 08:09 Dose: 5 mg Documented by: Atorvastatin Calcium (Atorvastatin Calcium 20 Mg Tablet) 20 mg PO BEDTIME [facility] Last Admin: 09/20/21 22:32 Dose: 20 mg Documented by: Cyanocobalamin (Cyanocobalamin (Vitamin B-12) 1,000 Mcg Tablet) 1,000 mcg PO DAILY [facility] Last Admin: 09/21/21 08:09 Dose: 1,000 mcg Documented by: Dicyclomine HCl (Dicyclomine Hcl 10 Mg Capsule) 10 mg PO QIDWMHS [facility] Last Admin: 09/21/21 11:48 Dose: Not Given Documented by: Famotidine (Famotidine 20 Mg Tablet) 20 mg PO DAILY PRN PRN Reason: Acid Reflux Lactated Ringer's (Lr) 1,000 mls @ 50 mls/hr IVCONT .Q20H [facility] Last Admin: 09/21/21 14:09 Dose: 50 mls/hr Documented by: Pharmacy Consult (Consult Rx Perform Med Rec) 1 each MISCELLANE ONCE PRN PRN Reason: Consult order Sodium Chloride (0.9 % Sodium Chloride Flush 3 Ml Syringe) 3 ml IVFLUSH QSHIFT [facility] Last Admin: 09/21/21 08:09 Dose: 3 ml Documented by: Home Medications Medication Instructions Recorded Confirmed Last Taken Type aspirin 81 mg tablet,delayed 81 mg PO DAILY 08/16/21 09/20/21 09/20/21 History release atorvastatin 20 mg tablet 20 mg PO BEDTIME 08/16/21 09/20/21 09/19/21 History diltiazem HCl 60 mg 60 mg PO DAILY 08/16/21 09/20/21 09/20/21 History capsule,extended release 12 hr duloxetine 30 mg capsule,delayed 30 mg PO BID 08/16/21 09/20/21 09/20/21 History release paroxetine HCl 10 mg tablet 20 mg PO DAILY 08/16/21 09/20/21 09/20/21 History Probiotic 1 Billion Natures Bounty 1 cap PO DAILY 09/20/21 09/20/21 History acetaminophen 650 mg 650 mg PO DAILY 09/20/21 09/20/21 09/20/21 History tablet,extended release (Tylenol Arthritis Pain) dicyclomine 10 mg capsule 1 cap PO QIDWMHS 09/20/21 09/20/21 09/19/21 History dicyclomine 20 mg tablet 1 tab PO QIDWMHS 09/20/21 09/20/21 09/19/21 History famotidine 20 mg tablet 20 mg PO DAILY PRN 09/20/21 09/20/21 09/20/21 History Exam Exam Date and Time: September 21, 2021 144 Height,Weight and Vital Signs: Height 5 ft 6 in Weight 160 lb Last Vital Signs Temp 99.0 F 09/21/21 13:51 Pulse 92 09/21/21 13:51 Resp 18 09/21/21 13:51 BP 182/89 H 09/21/21 13:51 Pulse Ox 97 09/21/21 13:51 Pertinent Lab Results Pertinent Lab Results: Laboratory Tests 09/20/21 09/20/21 09/20/21 14:26 14:26 14:26 WBC 7.7 RBC 3.42 L Hgb 6.9 L* Hct 24.9 L MCV 72.8 L MCH 20.2 L MCHC 27.7 L RDW 17.6 H Plt Count 460 H MPV 10.3 Immature Gran % (Auto) 0.3 Neut % (Auto) 55.1 Lymph % (Auto) 33.6 Benton % (Auto) 7.1 Eos % (Auto) 3.4 Baso % (Auto) 0.5 Lymph # (Auto) 2.6 Benton # (Auto) 0.6 Eos # (Auto) 0.3 Baso # (Auto) 0.0 Abs Immat Gran (auto) 0.02 Absolute Neuts (auto) 4.3 Absolute Nucleated RBC 0.000 Nucleated RBC % (auto) 0.0 PT 11.9 INR 1.0 APTT 37.6 Sodium 139 Potassium 4.0 Chloride 106 Carbon Dioxide 22 Anion Gap 15 BUN 18 H Creatinine 0.94 Estim Creat Clear Calc 65.7 Estimated GFR > 60 Random Glucose 127 H Fasting Glucose Calcium 9.5 Iron 14 L TIBC 594 H % Saturation 2 L Unsat Iron Binding 580 Total Bilirubin 0.4 AST 20 ALT 23 Alkaline Phosphatase 143 H Total Protein 7.5 Albumin 4.8 Lipase 70 Stool Occult Blood COVID-19 ([facility]) COVID-19 Clin Com Blood Type Antibody Screen Crossmatch 09/20/21 09/20/21 09/20/21 14:47 14:47 15:17 WBC RBC Hgb Hct MCV MCH MCHC RDW Plt Count MPV Immature Gran % (Auto) Neut % (Auto) Lymph % (Auto) Benton % (Auto) Eos % (Auto) Baso % (Auto) Lymph # (Auto) Benton # (Auto) Eos # (Auto) Baso # (Auto) Abs Immat Gran (auto) Absolute Neuts (auto) Absolute Nucleated RBC Nucleated RBC % (auto) PT INR APTT Sodium Potassium Chloride Carbon Dioxide Anion Gap BUN Creatinine Estim Creat Clear Calc Estimated GFR Random Glucose Fasting Glucose Calcium Iron TIBC % Saturation Unsat Iron Binding Total Bilirubin AST ALT Alkaline Phosphatase Total Protein Albumin Lipase Stool Occult Blood NEGATIVE COVID-19 ([facility]IR[facility]) Negative COVID-19 [facility] Com See Note Blood Type A Positive Antibody Screen NEGATIVE Crossmatch See Detail 09/21/21 09/21/21 07:29 07:29 WBC 7.7 RBC 4.38 D Hgb 10.0 L D Hct 33.6 L D MCV 76.7 L MCH 22.8 L MCHC 29.8 L RDW 19.5 H Plt Count 394 MPV 10.1 Immature Gran % (Auto) Neut % (Auto) Lymph % (Auto) Benton % (Auto) Eos % (Auto) Baso % (Auto) Lymph # (Auto) Benton # (Auto) Eos # (Auto) Baso # (Auto) Abs Immat Gran (auto) Absolute Neuts (auto) Absolute Nucleated RBC 0.000 Nucleated RBC % (auto) 0.0 PT INR APTT Sodium 141 Potassium 4.6 Chloride 109 H Carbon Dioxide 23 Anion Gap 14 BUN 16 Creatinine 0.89 Estim Creat Clear Calc 69.4 Estimated GFR > 60 Random Glucose Fasting Glucose 136 H Calcium 9.3 Iron TIBC % Saturation Unsat Iron Binding Total Bilirubin AST ALT Alkaline Phosphatase Total Protein Albumin Lipase Stool Occult Blood COVID-19 ([facility]) COVID-[facility] Com Blood Type Antibody Screen Crossmatch Airway Mallampati Class: II TM Dist: >3cm Neck ROM: Full Loose/Missing/Broken Teeth: No Assessment and Plan Assessment Anesthesia Assessment: Anesthesia Plan Discussed and Chart Reviewed Final Anesthetic Review Family History of Problems with Anesthesia: No History of Problems with Anesthesia: No NPO: Yes ASA Class: III Final Preanesthetic Review: No Changes in Pt Med Stat, Meds/Allgs Chart Reviewed, Consent Obtained/Reviewed, Anes Risks/Benef Reviewed and DNR Form (If Appl.) (Does not wish for DNR/DNI status to be reversed intraop; BMV/NIV OK) Patient Risk: Intermediate Procedure Risk: Low Anesthetic Plan Anesthetic Plan: MAC: Disposition: Standard PACU
--- NOTE | 2021-09-21 14:43 | W.PM.OPN ---
Operative Note Operative Note Date of Service: 09/21/21 Narrative: Procedure Description: EGD FLEXIBLE TRANSORAL UPPER GASTROINTESTINAL ENDOSCOPY UPPER ENDOSCOPY Consent: Indications for the procedure and potential complications of bleeding, perforation, reaction to medications and missed diagnosis were discussed with the patient and informed consent was obtained. Instrument: Olympus GIF H 190 J mid size upper endoscope Monitoring: Vital signs and clinical assessment, continuous EKG monitoring, Pulse oximetry, Carbon Dioxide monitoring and blood pressure monitoring were done throughout the procedure. Procedure: The patient was placed in the left lateral decubitis position and pre-procedure medications were administered and a bite block was placed. The endoscope was inserted into the mouth and advanced under direct vision to the third part of duodenum. A careful inspection was made as the upper endoscope was withdrawn including a retroflexed examination of the proximal stomach; Findings and interventions are described below. Findings: Larynx:normal Esophagus: GE junction at 36 cm, diaphragm hiatus at 38 cm, there was 2 cm sliding hiatal hernia with schatzki ring, mild esophagitis. Stomach: Patchy gastric erythema with few erosions in distal stomach. Biopsies were obtained. Grade 3 flap valve on retroflexed examination of the cardia with lax LES. No active bleeding. Duodenum: Mild bulbar duodenitis, bx taken Intervention: Biopsies as noted above Impression/Findings: erosive gastritis duodenitis schatzki ring lax LES PLAN: reflux precautions await bx to r/o h pylori and celiac disease defer to Dr Roberto whether wishes to proceed with colonoscopy in patient or o/p or not at all
--- NOTE | 2021-09-21 15:23 | P.PNIM_ITS ---
Subjective Subjective Date of Service: 09/21/21 Interval History: cc: sob interval history: feeling better Respiratory Respiratory: Reports no additional respiratory complaints Gastrointestinal Gastrointestinal: Reports no additional gastrointestinal complaints Physical Exam Vital Signs: Vital Signs: Last Vital Signs Temp 98.7 F 09/21/21 15:20 Pulse 81 09/21/21 15:20 Resp 18 09/21/21 15:20 BP 155/69 H 09/21/21 15:20 Pulse Ox 98 09/21/21 15:20 Body Mass Index 25.8 General: AO X 3, no acute distress Resp: CTA bilateral, no accessory muscles used CVS: S1,S2,RRR GI: soft, non tender, non distended Neuro: motor grossly intact, alert Psych: appropriate affect, appropriate insight Objective Data Active Medications Acetaminophen (Acetaminophen 325 Mg Tablet) 650 mg PO Q6H PRN PRN Reason: Pain, Mild (Pain Scale 1-3) Amlodipine Besylate (Amlodipine Besylate 5 Mg Tablet) 5 mg PO DAILY [facility]; Protocol Last Admin: 09/21/21 08:09 Dose: 5 mg Documented by: GEOFFREY Atorvastatin Calcium (Atorvastatin Calcium 20 Mg Tablet) 20 mg PO BEDTIME [facility] Last Admin: 09/20/21 22:32 Dose: 20 mg Documented by: JILL Cyanocobalamin (Cyanocobalamin (Vitamin B-12) 1,000 Mcg Tablet) 1,000 mcg PO DAILY [facility] Last Admin: 09/21/21 08:09 Dose: 1,000 mcg Documented by: GEOFFREY Dicyclomine HCl (Dicyclomine Hcl 10 Mg Capsule) 10 mg PO QIDWMHS [facility] Last Admin: 09/21/21 11:48 Dose: Not Given Documented by: GEOFFREY Non-Admin Reason: NPO Famotidine (Famotidine 20 Mg Tablet) 20 mg PO DAILY PRN PRN Reason: Acid Reflux Lactated Ringer's (Lr) 1,000 mls @ 50 mls/hr IVCONT .Q20H [facility] Last Admin: 09/21/21 14:09 Dose: 50 mls/hr Documented by: VAZQUEZ Pharmacy Consult (Consult Rx Perform Med Rec) 1 each MISCELLANE ONCE PRN PRN Reason: Consult order Sodium Chloride (0.9 % Sodium Chloride Flush 3 Ml Syringe) 3 ml IVFLUSH QSHIFT [facility] Last Admin: 09/21/21 08:09 Dose: 3 ml Documented by: GEOFFREY Labs CBC & Chem 7: 09/21/21 07:29 09/21/21 07:29 Labs: Laboratory Results - last 24 hr 09/20/21 09/20/21 09/20/21 14:26 14:47 14:47 MCV MCH MCHC RDW Plt Count MPV Absolute Nucleated RBC Nucleated RBC % (auto) Anion Gap 15 Estim Creat Clear Calc 65.7 Estimated GFR > 60 Random Glucose 127 H Fasting Glucose Calcium 9.5 Iron 14 L TIBC 594 H % Saturation 2 L Unsat Iron Binding 580 Total Bilirubin 0.4 AST 20 ALT 23 Alkaline Phosphatase 143 H Total Protein 7.5 Albumin 4.8 Lipase 70 Stool Occult Blood COVID-19 (DEYANIRA) Negative COVID-19 Clin Com See Note Blood Type A Positive Antibody Screen NEGATIVE Crossmatch See Detail 09/20/21 09/21/21 09/21/21 15:17 07:29 07:29 MCV 76.7 L MCH 22.8 L MCHC 29.8 L RDW 19.5 H Plt Count 394 MPV 10.1 Absolute Nucleated RBC 0.000 Nucleated RBC % (auto) 0.0 Anion Gap 14 Estim Creat Clear Calc 69.4 Estimated GFR > 60 Random Glucose Fasting Glucose 136 H Calcium 9.3 Iron TIBC % Saturation Unsat Iron Binding Total Bilirubin AST ALT Alkaline Phosphatase Total Protein Albumin Lipase Stool Occult Blood NEGATIVE COVID-19 (DEYANIRA) COVID-19 Clin Com Blood Type Antibody Screen Crossmatch Assessment and Plan (1) Iron (Fe) deficiency anemia: Status: Acute Assessment and Plan: ?61F presented with sob, fatigue found to have iron defeciency anemia Symptomatic iron deficiency anemia Likely subacute to chronic GI bleed versus malabsorption s/p 2 units prbc on 09/20, hgb improved appropriately s/p EGD today erosive gastritis duodenitis schatzki ring lax LES follow up path, plan for colonoscopy tomorrow Holding aspirin Hypertension Currently not on meds started amlodipine 5 mg daily Hyperlipidemia Statin DVT prophylaxis - mechanical due to possible GI bleed Quality Stroke Does the patient have a stroke diagnosis?: No VTE Prior VTE?: No VTE Risk Level:: Medical - moderate - high VTE Device Contraindication: N/A - Device Ordered VTE Drug Contraindication: Treatment Not Tolerated
[2021-09-21] MEDS: PEG 3350/Na Sulf,Bicarb,Cl/KCL 4,000 ML SOLN.RECON 4000 ML PO (17:54)
[2021-09-21] MEDS: Atorvastatin Calcium 20 MG TABLET PO (21:22)
[2021-09-22] VITALS (7 sets, daily range): BP systolic 126–162; BP diastolic 55–77; PULSE 77–93; RESP 14–20; TEMP 36.1–36.9; O2SAT 95–98
--- NOTE | 2021-09-22 08:41 | HO.ANESPROP2 ---
[facility] Active Problems Active Problems: All Active Problems (Updated 09/20/21 @ 16:34 by Anil Mccullough MD) HLD (hyperlipidemia) (Acute) HTN (hypertension) (Acute) Iron (Fe) deficiency anemia (Acute) VC Past Medical History Medical History Diverticulosis HLD (hyperlipidemia) HTN (hypertension) Iron (Fe) deficiency anemia Family History Family History Father Cancer Sister Colon cancer Brother CAD (coronary artery disease) Family history of problems with anesthesia: No Surgical History Surgical History Hx of colonoscopy History of Problems with Anesthesia: No Social History Social History Household Members: Spouse Housing: House Alcohol intake: never Patient Tobacco Use Status: Never used Tobacco service: No Current occupational status: employed Meds Allergies Allergy/AdvReac Type Severity Reaction Status Date / Time penicillin V Allergy Severe Anaphylaxis Verified 09/22/21 08:12 meloxicam Allergy Intermediate Nausea, Verified 09/22/21 08:12 lightheaded REINALDO Inhibitors Allergy Unknown ALL SORTS Verified 09/22/21 08:12 [REINALDO INHIBITORS] OF DIFF RXNS hydrochlorothiazide Allergy Unknown dizziness Verified 09/22/21 08:12 Sulfa (Sulfonamide Allergy Unknown RASH,ITCHY Verified 09/22/21 08:12 Antibiotics) [SULFA (SULFONAMIDE ANTIBIOTICS)] Moexipril HCl Allergy Unknown Mouth, Uncoded 09/20/21 23:27 cheek & feet tingling. shaking, nausea Active Medications: Current Medications Acetaminophen (Acetaminophen 325 Mg Tablet) 650 mg PO Q6H PRN PRN Reason: Pain, Mild (Pain Scale 1-3) Amlodipine Besylate (Amlodipine Besylate 5 Mg Tablet) 5 mg PO DAILY [facility]; Protocol Last Admin: 09/21/21 08:09 Dose: 5 mg Documented by: Atorvastatin Calcium (Atorvastatin Calcium 20 Mg Tablet) 20 mg PO BEDTIME [facility] Last Admin: 09/21/21 21:22 Dose: 20 mg Documented by: Cyanocobalamin (Cyanocobalamin (Vitamin B-12) 1,000 Mcg Tablet) 1,000 mcg PO DAILY [facility] Last Admin: 09/21/21 08:09 Dose: 1,000 mcg Documented by: Dicyclomine HCl (Dicyclomine Hcl 10 Mg Capsule) 10 mg PO QIDWMHS [facility] Last Admin: 09/21/21 21:35 Dose: Not Given Documented by: Famotidine (Famotidine 20 Mg Tablet) 20 mg PO DAILY PRN PRN Reason: Acid Reflux Lactated Ringer's (Lr) 1,000 mls @ 50 mls/hr IVCONT .Q20H [facility] Last Admin: 09/21/21 14:09 Dose: 50 mls/hr Documented by: Pharmacy Consult (Consult Rx Perform Med Rec) 1 each MISCELLANE ONCE PRN PRN Reason: Consult order Sodium Chloride (0.9 % Sodium Chloride Flush 3 Ml Syringe) 3 ml IVFLUSH QSHIFT [facility] Last Admin: 09/21/21 21:22 Dose: 3 ml Documented by: Home Medications Medication Instructions Recorded Confirmed Last Taken Type aspirin 81 mg tablet,delayed 81 mg PO DAILY 08/16/21 09/20/21 09/20/21 History release atorvastatin 20 mg tablet 20 mg PO BEDTIME 08/16/21 09/20/21 09/19/21 History diltiazem HCl 60 mg 60 mg PO DAILY 08/16/21 09/20/21 09/20/21 History capsule,extended release 12 hr duloxetine 30 mg capsule,delayed 30 mg PO BID 08/16/21 09/20/21 09/20/21 History release paroxetine HCl 10 mg tablet 20 mg PO DAILY 08/16/21 09/20/21 09/20/21 History Probiotic 1 Billion Natures Bounty 1 cap PO DAILY 09/20/21 09/20/21 History acetaminophen 650 mg 650 mg PO DAILY 09/20/21 09/20/21 09/20/21 History tablet,extended release (Tylenol Arthritis Pain) dicyclomine 10 mg capsule 1 cap PO QIDWMHS 09/20/21 09/20/21 09/19/21 History dicyclomine 20 mg tablet 1 tab PO QIDWMHS 09/20/21 09/20/21 09/19/21 History famotidine 20 mg tablet 20 mg PO DAILY PRN 09/20/21 09/20/21 09/20/21 History Exam Exam Date and Time: September 22, 2021 0841 Height,Weight and Vital Signs: Height 5 ft 6 in Weight 72.575 kg Last Vital Signs Temp 98.2 F 09/22/21 08:12 Pulse 93 09/22/21 08:12 Resp 16 09/22/21 08:12 BP 162/74 H 09/22/21 08:12 Pulse Ox 96 09/22/21 08:12 Pertinent Lab Results Pertinent Lab Results: Laboratory Tests 09/20/21 09/20/21 09/20/21 14:26 14:26 14:26 WBC 7.7 RBC 3.42 L Hgb 6.9 L* Hct 24.9 L MCV 72.8 L MCH 20.2 L MCHC 27.7 L RDW 17.6 H Plt Count 460 H MPV 10.3 Immature Gran % (Auto) 0.3 Neut % (Auto) 55.1 Lymph % (Auto) 33.6 [place] % (Auto) 7.1 Eos % (Auto) 3.4 Baso % (Auto) 0.5 Lymph # (Auto) 2.6 [place] # (Auto) 0.6 Eos # (Auto) 0.3 Baso # (Auto) 0.0 Abs Immat Gran (auto) 0.02 Absolute Neuts (auto) 4.3 Absolute Nucleated RBC 0.000 Nucleated RBC % (auto) 0.0 PT 11.9 INR 1.0 APTT 37.6 Sodium 139 Potassium 4.0 Chloride 106 Carbon Dioxide 22 Anion Gap 15 BUN 18 H Creatinine 0.94 Estim Creat Clear Calc 65.7 Estimated GFR > 60 Random Glucose 127 H Fasting Glucose Calcium 9.5 Iron 14 L TIBC 594 H % Saturation 2 L Unsat Iron Binding 580 Total Bilirubin 0.4 AST 20 ALT 23 Alkaline Phosphatase 143 H Total Protein 7.5 Albumin 4.8 Lipase 70 Stool Occult Blood COVID-19 (DEYANIRA) COVID-19 Clin Com Blood Type Antibody Screen Crossmatch 09/20/21 09/20/21 09/20/21 14:47 14:47 15:17 WBC RBC Hgb Hct MCV MCH MCHC RDW Plt Count MPV Immature Gran % (Auto) Neut % (Auto) Lymph % (Auto) [place] % (Auto) Eos % (Auto) Baso % (Auto) Lymph # (Auto) [place] # (Auto) Eos # (Auto) Baso # (Auto) Abs Immat Gran (auto) Absolute Neuts (auto) Absolute Nucleated RBC Nucleated RBC % (auto) PT INR APTT Sodium Potassium Chloride Carbon Dioxide Anion Gap BUN Creatinine Estim Creat Clear Calc Estimated GFR Random Glucose Fasting Glucose Calcium Iron TIBC % Saturation Unsat Iron Binding Total Bilirubin AST ALT Alkaline Phosphatase Total Protein Albumin Lipase Stool Occult Blood NEGATIVE COVID-19 (DEYANIRA) Negative COVID-19 Clin Com See Note Blood Type A Positive Antibody Screen NEGATIVE Crossmatch See Detail 09/21/21 09/21/21 07:29 07:29 WBC 7.7 RBC 4.38 D Hgb 10.0 L D Hct 33.6 L D MCV 76.7 L MCH 22.8 L MCHC 29.8 L RDW 19.5 H Plt Count 394 MPV 10.1 Immature Gran % (Auto) Neut % (Auto) Lymph % (Auto) [place] % (Auto) Eos % (Auto) Baso % (Auto) Lymph # (Auto) [place] # (Auto) Eos # (Auto) Baso # (Auto) Abs Immat Gran (auto) Absolute Neuts (auto) Absolute Nucleated RBC 0.000 Nucleated RBC % (auto) 0.0 PT INR APTT Sodium 141 Potassium 4.6 Chloride 109 H Carbon Dioxide 23 Anion Gap 14 BUN 16 Creatinine 0.89 Estim Creat Clear Calc 69.4 Estimated GFR > 60 Random Glucose Fasting Glucose 136 H Calcium 9.3 Iron TIBC % Saturation Unsat Iron Binding Total Bilirubin AST ALT Alkaline Phosphatase Total Protein Albumin Lipase Stool Occult Blood COVID-19 (DEYANIRA) COVID-19 Clin Com Blood Type Antibody Screen Crossmatch Assessment and Plan Final Anesthetic Review Family History of Problems with Anesthesia: No History of Problems with Anesthesia: No
--- NOTE | 2021-09-22 09:22 | PC.NURSE ---
Patient stated she only finished half of her prep. Clear liquids only all day yesterday, NPO since midnight. Per patient and floor RN, bowel output is clear. Dr. Roberto aware. No new orders.
--- NOTE | 2021-09-22 10:05 | P.BOP_ITS ---
Brief Operative Note Date of Service: 09/22/21 Pre-op diagnosis: Iron deficiency anemia Post-op diagnosis: other (Diverticulosis) Procedure: COLONOSCOPY TILL CECUM Consent: Indications for the procedure and potential complications of bleeding, perforation, reaction to medications and missed diagnosis were discussed with the patient and informed consent was obtained. Instrument: Olympus PCF H 190 L variable stiffness pediatric colonoscope Monitoring: Vital signs and clinical assessment, intermittent blood pressure monitoring, continuous EKG monitoring, Pulse oximetry and Carbon Dioxide monitoring were done throughout the procedure. Colon withdrawl time was 21 minutes. Procedure: The patient was placed in the left lateral decubitis position and pre-procedure medications were administered. After a digital rectal examination of the ano-rectum, the video colonoscope was inserted into the rectum and advanced through the colon to the cecum. The colonoscope was slowly withdrawn in a retrograde panoramic fashion and the colon mucosa was carefully examined including a retroflexed view of the rectum. Findings and interventions are described below. Procedure Difficulty: Colon was long and tortuous and there was spasm and recurrent loop formation. No maneuvers were required Findings: Terminal Ileum: Not evaluated Cecum: Normal Ascending Colon: Moderate diverticulosis Transverse Colon: Moderate diverticulosis Descending Colon: Moderate diverticular Sigmoid Colon: Moderate diverticulosis Rectum: Normal Ano-rectum: Normal Colon preparation: Good after copious irrigation (pt took half the prep) Impression and Post Procedure Diagnosis: Colonoscopy Findings: No polyps were detected Moderate diverticulosis seen in the entire colon No active bleeding and no source found for anemia - likely small bowel Plan: OK to DC home today. I will schedule her for a Capsule Endoscopy as an out patient if duodenal biopsies are negative for celiac sprue. Patient has an appointment on 10/04/21 in the GI Clinic with Gloria Baker FNP-BC. Repeat Colonoscopy in 10 years. Above findings were reviewed with the patient and diverticulosis handouts were given to her. Surgeon: Coral Roberto MD Was an Manager Process Improvement used for this Procedure?: No Manager Process Improvement: Radha Marr Estimated blood loss (mL): 0 Pathology: none sent Condition: stable Disposition: PACU
[2021-09-22] MEDS: amLODIPine Besylate 5 MG TABLET PO (10:51)
[2021-09-22] MEDS: Dicyclomine HCl 10 MG CAPSULE PO (10:51)
[2021-09-22] MEDS: Cyanocobalamin (Vitamin B-12) 1,000 MCG TABLET 1000 MCG PO (10:51)
--- NOTE | 2021-09-22 11:12 | PM.DS ---
DS: Providers Provider Date of Service: 09/22/21 Date of admission: 09/20/21 16:27 Primary care physician: None Physician Consults: 09/20/21 16:27 Consult to Gastroenterology Routine Consulting Provider: Coral Roberto Reason for consultation: iron defeciency anemia DS: Diagnosis Discharge Diagnosis (1) Iron (Fe) deficiency anemia: Status: Acute DS: Summary Hospital Course Hospital Course: patient was admitted for iron defeciency anemia. received 2 unit prbc, hgb improved appropriately. underwent EGD which showed Erosive gastritis, duodenitis, Schatzki ring, lax LES. No active bleeding was found so colonoscopy was done the next day which showed nonbleeding diverticulosis. Aspirin is put on hold as no clear indication. Plan to follow-up with GI for biopsy results and possible capsule endoscopy. Continue PPI, iron p.o. patient was noted to have low normal B12 social continue oral B12 supplement. Patient also noted to be hypertensive, no longer on meds. Was started on amlodipine 5 mg daily. Time Spent with Patient Time attestation: Total time spent providing and/or coordinating discharge services: Discharge coordination time: Greater than 30 minutes Quality: Stroke Does the patient have a stroke diagnosis?: No Physical Exam Vital Signs: Vital Signs: Last Vital Signs Temp 97.7 F 09/22/21 10:50 Pulse 77 09/22/21 10:51 Resp 14 09/22/21 10:50 BP 154/70 H 09/22/21 10:51 Pulse Ox 97 09/22/21 10:50 Body Mass Index 25.8 General: AO X 3, no acute distress Resp: CTA bilateral, no accessory muscles used CVS: S1,S2,RRR GI: soft, non tender, non distended Neuro: motor grossly intact, alert Psych: appropriate affect, appropriate insight DS: Data Data Completed and Pending Pending studies at discharge: Pending at discharge 09/21/21 14:39 Surgical [PTH] Routine Discharge Plan Discharge Patient Disposition: Home, Self-Care Discharge Diagnosis: iron defeciency anemia Referrals: Coral Roberto MD [Physician] - 1 Week Physician,None [Primary Care Provider] - 1 Week Discharge Medications: New cyanocobalamin (vitamin B-12) [Vitamin B-12] 1,000 mcg Tablet 1,000 mcg PO DAILY Qty: 30 RF: 0 amlodipine 5 mg Tablet 5 mg PO DAILY Qty: 30 RF: 0 ferrous sulfate 325 mg (65 mg iron) tablet 325 mg PO DAILY Qty: 30 RF: 0 omeprazole 20 mg tablet,disintegrat, delay rel 20 mg PO DAILY Qty: 30 RF: 0 Continued dicyclomine 20 mg tablet 1 tab PO QIDWMHS RF: 0 dicyclomine 10 mg capsule 1 cap PO QIDWMHS RF: 0 acetaminophen [Tylenol Arthritis Pain] 650 mg Tablet Extended Release 650 mg PO DAILY RF: 0 famotidine 20 mg Tablet 20 mg PO DAILY PRN (Reason: Acid Reflux) RF: 0 Probiotic 1 Billion Natures Bounty 1 UNIT capsule 1 cap PO DAILY RF: 0 Discontinued aspirin 81 mg tablet,delayed release (DR/EC) 81 mg PO DAILY RF: 0 Discharge Orders: Discharge Order (Routine); Ordered 09/22/21 Ordered By: Anil Mccullough Diet: advance to usual diet Activity on Discharge: As tolerated Stand Alone Forms: Patient Portal Discharge page, Work/School Release Care Plan Goals: work up [facility] Concerns: iron defeciency anemia Plan of Treatment: po iron, ppi, b12 ,amlodipine, follow up GI Assessment: see above Discharge Date/Time: 09/22/21 13:16
--- NOTE | 2021-09-22 11:14 | MHC.CM.PN ---
PT TO DC TODAY, HOME WITH NO SERVICES.
--- NOTE | 2021-09-22 13:46 | HO.POSTANES ---
Post Anesthesia Evaluation Post Anesthesia Evaluation Vital Signs: Vital Signs Temp Pulse Resp BP Pulse Ox 09/22/21 11:49 97.0 F 78 20 162/74 H 98 09/22/21 10:51 77 154/70 H 09/22/21 10:50 97.7 F 77 14 154/70 H 97 09/22/21 10:25 78 18 127/55 L 95 09/22/21 10:10 98.5 F 81 20 126/58 L 97 09/22/21 08:12 98.2 F 93 16 162/74 H 96 09/22/21 07:37 98.4 F 87 20 152/77 H 97 Anesthesia: Monitored Comments: Patient not seen. In OR for colonoscopy. No apparent anesthetic complications
--- NOTE | 2021-09-24 23:11 | P.OP_ITS ---
Operative Note Operative Note Date of Service: 09/22/21 Narrative: Pre-op diagnosis:?Iron deficiency anemia Post-op diagnosis:?other (Diverticulosis) Procedure:? COLONOSCOPY TILL CECUM Consent: Indications for the procedure and potential complications of bleeding, perforation, reaction to medications and missed diagnosis were discussed with the patient and informed consent was obtained. Instrument: Olympus PCF H 190 L variable stiffness pediatric colonoscope Monitoring: Vital signs and clinical assessment, intermittent blood pressure monitoring, continuous EKG monitoring, Pulse oximetry and Carbon Dioxide monitoring were done throughout the procedure. Colon withdrawl time was 21 minutes. Procedure: The patient was placed in the left lateral decubitis position and pre-procedure medications were administered. After a digital rectal examination of the ano-rectum, the video colonoscope was inserted into the rectum and advanced through the colon to the cecum. The colonoscope was slowly withdrawn in a retrograde panoramic fashion and the colon mucosa was carefully examined including a retroflexed view of the rectum. Findings and interventions are described below. Procedure Difficulty:? Colon was long and tortuous and there was spasm and recurrent loop formation.? No maneuvers were required Findings: Terminal Ileum: Not evaluated Cecum:? Normal Ascending Colon:? Moderate diverticulosis Transverse Colon:? Moderate diverticulosis Descending Colon:? Moderate diverticular Sigmoid Colon:? Moderate diverticulosis Rectum:? Normal Ano-rectum:? Normal Colon preparation:? Good after copious irrigation (pt took half the prep) Impression and Post Procedure Diagnosis: Colonoscopy Findings: No polyps were detected Moderate diverticulosis seen in the entire colon No active bleeding and no source found for anemia - likely small bowel Plan: OK to DC home today. I will schedule her for a Capsule Endoscopy as an out patient if duodenal biopsies (obtained during EGD on 09/21/21) are negative for celiac sprue. Patient has an appointment on 10/04/21 in the GI Clinic with? Gloria Baker FNP-BC. Repeat Colonoscopy in 10 years. Above findings were reviewed with the patient and? diverticulosis handouts were given to her. Surgeon:?Coral Roberto MD Was an Quill Picking Machine Operator used for this Procedure?:?No Quill Picking Machine Operator:?Radha Marr Estimated blood loss (mL):?0 Pathology:?none sent Condition:?stable Disposition:?PACU
== END 2021-09-22 13:16 | disposition home or self-care (01) ==
LOC: HO.ED 16:31 → HO.EDOVER 16:33 → HO.IMC 17:50
PROVIDERS: Internal Medicine Gastroenterology; Admitting Provider Internal Medicine; Emergency Provider Emergency Medicine Emergency Medical Services; PCP Internal Medicine; Visit Provider Internal Medicine
PROC: 0DJ08ZZ Inspection of Upper Intestinal Tract, Via Natural or Artificial Opening Endoscopic (ICD-10-PCS; CPT 43235; principal; 2021-09-21 13:40)
PROC: 0DJD8ZZ Inspection of Lower Intestinal Tract, Via Natural or Artificial Opening Endoscopic (ICD-10-PCS; CPT 45378; principal; 2021-09-22 13:20)
DX: D50.9 Iron deficiency anemia, unspecified (principal); E78.5 Hyperlipidemia, unspecified; I10 Essential (primary) hypertension; K57.90 Diverticulosis of intestine, part unspecified, without perforation or abscess without bleeding; K29.00 Acute gastritis without bleeding; K44.9 Diaphragmatic hernia without obstruction or gangrene; K22.2 Esophageal obstruction; R06.00 Dyspnea, unspecified; R53.83 Other fatigue; R51.9 Headache, unspecified; Z20.822 Contact with and (suspected) exposure to COVID-19; Z88.0 Allergy status to penicillin; Z88.2 Allergy status to sulfonamides; Z88.8 Allergy status to other drugs, medicaments and biological substances; Z79.899 Other long term (current) drug therapy
CPT/HCPCS: 43239; 45378; 36415; 36430; 80048; 80053; 82272; 83540; 83690; 85025; 85027; 85610; 85730; 86850; 86900; 86901; 86923; 87635; 88305; 88342; 99219; 99225; 99284; 99285; P9016

== ENCOUNTER → 2021-10-04 12:28 | Outpatient (BNVA) | payer OTHER, SELFPAY | PROVIDERS: Visit Provider Nurse Practitioner Family ==

== ENCOUNTER → 2021-10-09 08:14 | Outpatient (BNVA) | payer OTHER, SELFPAY | PROVIDERS: Visit Provider Internal Medicine Gastroenterology | DX: K29.60 Other gastritis without bleeding (principal); K29.80 Duodenitis without bleeding; K20.90 Esophagitis, unspecified without bleeding; D50.9 Iron deficiency anemia, unspecified | CPT/HCPCS: 91110 ==

== ENCOUNTER → 2021-10-30 14:01 | Outpatient (BNVA) | payer OTHER, SELFPAY | PROVIDERS: Referring Provider Nurse Practitioner Family; Visit Provider Internal Medicine | DX: I10 Essential (primary) hypertension (principal) | CPT/HCPCS: 93005 ==

== ENCOUNTER → 2021-11-01 08:21 | Outpatient (BNVA) | payer OTHER, SELFPAY | PROVIDERS: Visit Provider Nurse Practitioner Family ==

== ENCOUNTER 2021-12-05 08:45 | Outpatient (REF) | payer OTHER, SELFPAY ==
--- NOTE | ~2021-12-05 | US_ITS ---
EXAMINATION: US RETROPERITONEAL LIMITED (RENAL ONLY) AND RENAL DOPPLER EXAM CLINICAL INFORMATION: Hypertension. COMPARISON: None. TECHNIQUE: Grayscale and color imaging of the kidneys. Grayscale color and Doppler imaging of the renal arteries including waveform spectral analysis. FINDINGS: RIGHT KIDNEY: 10.7 x 4.9 x 4.2 cm (SAG x AP x TRV). The kidney is normal in size, contour, and echogenicity. Renal cortical thickness is normal. No calculi. There is a 1.7 cm cyst in the lower pole. There is mild fullness of the renal pelvis. No definite calyceal dilatation/hydronephrosis. LEFT KIDNEY: 11 x 6.1 x 4.4 cm (SAG x AP x TRV). The kidney is normal in size, contour, and echogenicity. Renal cortical thickness is normal. No focal parenchymal lesions. No hydronephrosis. There is a 5 mm echogenic density in the midpole with twinkle artifact questionable for a stone. VASCULAR: The mid abdominal aorta is normal in caliber and demonstrates normal peak systolic velocity of 80 cm/s. Right renal artery is patent. Right renal artery peak systolic velocities are normal measuring 143 cm/s proximally, 135 cm/s in the midportion and 52 cm/s distally. The right renal artery to aorta ratio is normal measuring 1.8. Resistive indices of the interlobar arteries in the right kidney are normal measuring 0.7-0.8. The right renal vein is patent. Left renal artery is patent. Left renal artery peak systolic velocities are normal measuring 71 cm/s proximally, 83 cm/s in the midportion and 120 cm/s distally. Left renal artery to aorta ratio is normal measuring 1.5. Resistive indices of the interlobar arteries in the left kidney are normal measuring 0.7. The left renal artery is patent. US/US renal doppler IMPRESSION: Normal renal Doppler exam. No evidence of renal artery stenosis. Right renal cyst. Question small left renal stone.
== END 2021-12-05 08:46 | disposition home or self-care (01) ==
LOC: HO.US 08:45
PROVIDERS: Visit Provider Internal Medicine
DX: I10 Essential (primary) hypertension (principal)
CPT/HCPCS: 76775; 93975

== ENCOUNTER → 2022-01-08 08:13 | Outpatient (BNVA) | payer OTHER, SELFPAY | PROVIDERS: Visit Provider Internal Medicine ==

== ENCOUNTER 2022-12-21 15:00 | Outpatient (REF) | payer OTHER, SELFPAY ==
[2022-12-21 17:37] LABS: TSH reflex Free T4 3.18 uIU/mL (0.32-4.0)
[2022-12-21 17:51] LABS: Folate 9.1 ng/mL (> or = 4.0); Vitamin B12 933 pg/mL (200-900)
[2022-12-26 16:04] LABS: Vitamin D 25-OH, D2 <4 ng/mL; Vitamin D 25-OH, D3 32 ng/mL; Vitamin D 25-OH, Total 32 ng/mL (30-100)
== END 2022-12-21 15:01 | disposition home or self-care (01) ==
LOC: HO.LAB 15:00
PROVIDERS: PCP Internal Medicine Cardiovascular Disease; Referring Provider Internal Medicine Cardiovascular Disease; Visit Provider Nurse Practitioner Family
DX: K59.00 Constipation, unspecified (principal); R19.7 Diarrhea, unspecified; E55.9 Vitamin D deficiency, unspecified; K58.2 Mixed irritable bowel syndrome; K21.9 Gastro-esophageal reflux disease without esophagitis
CPT/HCPCS: 36415; 82306; 82607; 82746; 84443

== ENCOUNTER → 2023-01-16 12:57 | Outpatient (BNVA) | payer OTHER, SELFPAY | PROVIDERS: PCP Internal Medicine Cardiovascular Disease; Referring Provider Internal Medicine Cardiovascular Disease; Visit Provider Internal Medicine | DX: I10 Essential (primary) hypertension (principal) | CPT/HCPCS: 93005 ==

== ENCOUNTER → 2023-03-22 15:46 | Outpatient (BNVA) | payer OTHER, SELFPAY | PROVIDERS: PCP Internal Medicine Cardiovascular Disease; Visit Provider Nurse Practitioner Family | DX: Z13.89 Encounter for screening for other disorder (principal) ==

== ENCOUNTER 2023-09-18 16:11 | Outpatient (AMB) | payer OTHER, SELFPAY ==
[2023-09-18 16:15] VITALS: BP 191/87; PULSE 84; O2SAT 96; BMI 27.2
--- NOTE | 2023-09-18 16:15 | A.OFFVIS_ITS ---
Intake Vital Signs 09/18/23 16:15 Height 5 ft 6 in Weight 168 lb 6.931 oz BMI 27.2 BP 191/87 H Blood Pressure Location Rt brachial Position Sitting Pulse 84 Pulse Source Pulse Oximeter Pulse Oximetry (%) 96 Oxygen Delivery Method Room Air Intake Visit Reasons: 6 Month Follow Up Intake Note: Pt presents to the office today for a 6 month follow up fir diverticulosis. Pt states she is feeling much better and is having more normal bowel movements. Pt states she believes the medication is working well. Allergies penicillin V Allergy (Severe, Verified 09/18/23 16:17) Anaphylaxis amlodipine Allergy (Intermediate, Verified 09/18/23 16:17) welts on body meloxicam Allergy (Intermediate, Verified 09/18/23 16:17) Nausea, lightheaded REINALDO Inhibitors [REINALDO INHIBITORS] Allergy (Unknown, Verified 09/18/23 16:17) ALL SORTS OF DIFF RXNS hydrochlorothiazide Allergy (Unknown, Verified 09/18/23 16:17) dizziness Sulfa (Sulfonamide Antibiotics) [SULFA (SULFONAMIDE ANTIBIOTICS)] Allergy (Unknown, Verified 09/18/23 16:17) RASH,ITCHY lisinopril Adverse Reaction (Verified 09/18/23 16:17) Cough metformin Adverse Reaction (Verified 09/18/23 16:17) Stomach Upset Moexipril HCl Allergy (Unknown, Uncoded 09/18/23 16:17) Mouth, cheek & feet tingling. shaking, nausea HPI 6 Month Follow Up HPI Details LAST VISIT: IBS (irritable bowel syndrome) Continue low FODMAP diet. Patient has list of recommendations as well as list of food that she should avoid it home. Continue dicyclomine, however patient was instructed to be careful not to be come to constipated. Patient was instructed to drink plenty fluids. Diverticulosis Continue with high-fiber diet and extra fiber supplement to help patient bulk her stools. Postprandial diarrhea Patient reports that she no longer experiences diarrhea. In the last month or so she experienced maybe 3 episodes, however per patient it was dependent on the food that she ate. Patient is trying to avoid food that is spicy. Continue follow flow FODMAP diet. I will see patient in 6 months, sooner on as needed basis. Patient is agreeable to this plan and verbalizes understanding of instructions. She was given the opportunity to ask questions and all questions answered. TODAY'S VISIT For patient is here today for follow-up. Patient reports that she has been doing better lately. She takes dicyclomine with food and does not experience any more loose stools postprandially. Patient also increased fiber in her diet and stay that this is also helping. Patient does admit occasional epigastric pain and acid reflux. Patient states that this happens occasionally. She needs refill for omeprazole and famotidine. Patient reports that famotidine she only uses on as needed basis. Patient reports that otherwise she has been feeling well. Denies any abdominal pain or discomfort. Denies any dyspepsia, dysphagia or odynophagia. Denies melena, hematochezia, unintentional weight loss or ribbon like stools. [facility] Medical History Diverticulosis HLD (hyperlipidemia) HTN (hypertension) IBS (irritable bowel syndrome) Iron (Fe) deficiency anemia Surgical History History of esophagogastroduodenoscopy (EGD) Hx of colonoscopy Family History Father Cancer Sister Colon cancer Brother CAD (coronary artery disease) Social History Household Members: Spouse Housing: House Alcohol intake: never Patient Tobacco Use Status: Former Tobacco user service: No Current occupational status: employed Review [employer] Systems Const Denies weight gain and Denies weight loss ENT Reports no additional complaints, Denies dysphagia and Denies odynophagia Card Reports no additional complaints Resp Reports no additional complaints GI Denies abdominal pain, Denies belching, Denies melena, Denies bloating, Denies change in bowel habits, Denies dysphagia, Denies excessive flatus, Denies dyspepsia, Denies heartburn, Denies diarrhea, Denies loose stools, Denies nausea, Denies odynophagia and Denies vomiting Musc Reports no additional complaints Neuro Reports no additional complaints Psych Reports no additional complaints Endo Reports no additional complaints Physical Exam Vital Signs: Last Vital Signs Pulse 84 09/18/23 16:15 BP 191/87 H 09/18/23 16:15 Pulse Ox 96 09/18/23 16:15 Oxygen Delivery Method Room Air 09/18/23 16:15 BMI result Body Mass Index 27.2 Const General: healthy appearing, no acute distress and well developed Nutritional Appearance: well nourished Orientation/consciousness: patient oriented x3 HEENT Head: Yes normal to inspection, Yes normocephalic and Yes atraumatic Face and sinus: Yes normal facial exam Mouth: Normal oral and palatal mucosa present Throat: Yes posterior oropharynx normal, Yes tonsils normal and Yes uvula midline Eyes General: appearance normal, both eyes and all related structures Neck Neck: Yes normal visual inspection, Yes full ROM and Yes trachea midline Thyroid: Thyroid normal Resp Effort & Inspection: normal respiratory effort, able to speak in complete sentences, no tracheal deviation and symmetric chest movement Auscultation: clear to auscultation bilaterally Cardio Rate: regular rate Heart sounds: S1 normal heart sound present and S2 normal heart sound present GI Inspection: Yes normal to inspection and No distended Palpation (GI): Soft to palpation, not firm, nontender and No hepatosplenomegaly present Auscultation: normal bowel sounds General: Yes no CVA tenderness Back/Spine/Pelvis Back: no CVA tenderness Skin General skin exam: elasticity normal, turgor normal and dry skin Neuro General: patient oriented x3 Psych Appearance: grossly normal Mental Status: mental status grossly normal Assessment & Plan Assessment & Plan (1) IBS (irritable bowel syndrome): Code(s): K58.9 - Irritable bowel syndrome without diarrhea Qualifiers: Irritable bowel syndrome type: with both diarrhea and constipation Qualified Code(s): K58.2 - Mixed irritable bowel syndrome (2) Diverticulosis: Code(s): K57.90 - Diverticulosis of intestine, part unspecified, without perforation or abscess without bleeding (3) Postprandial diarrhea: Code(s): K52.9 - Noninfective gastroenteritis and colitis, unspecified (4) GERD (gastroesophageal reflux disease): Code(s): K21.9 - Gastro-esophageal reflux disease without esophagitis Qualifiers: Esophagitis presence: esophagitis presence not specified Qualified Code(s): K21.9 - Gastro-esophageal reflux disease without esophagitis Plan Patient can continue taking dicyclomine. Making sure that she drinks plenty fluids and takes fiber. As much as dicyclomine helps her to decrease the frequency loose stools it might cause slowing down of her bowel causing constipation. Continue probiotic. Continue low FODMAP diet. Avoid dietary triggers and late night snacking. Staying upright foraminal 3 hours after meals discussed with patient. Patient can continue omeprazole in the morning half an hour before breakfast. She can not take famotidine and bedtime on as needed basis. She will follow-up in the office in 6 months, sooner on as needed basis. She is agreeable to this plan and verbalizes understanding of instructions. She was given the opportunity to ask questions and all questions answered. Thank you for allowing me to participate in her care Medications: New omeprazole 20 mg PO DAILY 90 caps 2RF K21.9 - Gastro-esophageal reflux disease without esophagitis Refilled dicyclomine 30 MIN BEFORE MEAL 20 mg PO QID 120 tabs 3RF famotidine 20 mg PO DAILY PRN 90 tabs 3RF Acid Reflux K21.9 - Gastro-esophageal reflux disease without esophagitis Discontinued omeprazole Discontinued Reason: Duplicate 20 mg PO DAILY 90 tabs 3RF K21.9 - Gastro- esophageal reflux disease without esophagitis Coding Level of Care Code Est Pt Level 3 (76037) Diagnoses Irritable bowel syndrome with both constipation and diarrhea K58.2 Irritable bowel syndrome type: with both diarrhea and constipation Diverticulosis K57.90 Postprandial diarrhea K52.9 Gastroesophageal reflux disease, unspecified whether esophagitis present K21.9 Esophagitis presence: esophagitis presence not specified Time Spent (min) 30 Comment 20 minutes spent with patient and additional 10 minutes spent reviewing her records
== END 2023-09-18 16:57 | disposition home or self-care (01) ==
PROVIDERS: Visit Provider Nurse Practitioner Family
DX: K58.2 Mixed irritable bowel syndrome (principal); K57.90 Diverticulosis of intestine, part unspecified, without perforation or abscess without bleeding; K21.9 Gastro-esophageal reflux disease without esophagitis
CPT/HCPCS: 99213

== ENCOUNTER → 2023-09-18 16:11 | Outpatient (BNVA) | payer OTHER, SELFPAY | PROVIDERS: Visit Provider Nurse Practitioner Family ==

== ENCOUNTER 2024-02-26 14:02 | Outpatient (AMB) | payer OTHER, SELFPAY ==
--- NOTE | 2024-02-26 14:10 | A.OFFVIS_ITS ---
Intake Vital Signs 02/26/24 14:13 Height 5 ft 6 in Weight 174 lb 2.643 oz BMI 28.1 BP 188/80 H Blood Pressure Location Lt brachial Position Sitting Pulse 71 Intake Visit Reasons: 1 yr f/up Intake Note: 1 year follow up w/ EKG Supervisor [employer] Required: No Accompanied by: Self / Same As Patient Allergies penicillin V Allergy (Severe, Verified 02/26/24 14:13) Anaphylaxis amlodipine Allergy (Intermediate, Verified 02/26/24 14:13) welts on body meloxicam Allergy (Intermediate, Verified 02/26/24 14:13) Nausea, lightheaded REINALDO Inhibitors [REINALDO INHIBITORS] Allergy (Unknown, Verified 02/26/24 14:13) ALL SORTS OF DIFF RXNS hydrochlorothiazide Allergy (Unknown, Verified 02/26/24 14:13) dizziness Sulfa (Sulfonamide Antibiotics) [SULFA (SULFONAMIDE ANTIBIOTICS)] Allergy (Unknown, Verified 02/26/24 14:13) RASH,ITCHY lisinopril Adverse Reaction (Verified 02/26/24 14:13) Cough metformin Adverse Reaction (Verified 02/26/24 14:13) Stomach Upset Moexipril HCl Allergy (Unknown, Uncoded 02/26/24 14:13) Mouth, cheek & feet tingling. shaking, nausea Medication List - Last Reconciled 02/26/24 by José Manuel Elias MD atorvastatin 20 mg PO DAILY carvedilol 25 mg PO BID dicyclomine 20 mg PO QID famotidine 20 mg PO DAILY PRN losartan 50 mg PO BID methylcellulose (laxative) (Citrucel) 500 mg PO DAILY omeprazole 20 mg PO DAILY [Probiotic 1 [place] 1 cap PO DAILY] HPI HPI Comments History of Present Illness Details Matilda returns for follow up regarding uncontrolled hypertension. Per patient, she has had hypertension more than 20 years. Listed to have numerous allergies to medications. She has numerous listed allergies to medications and hence very difficult to manage. More recently, she has been on Coreg and losartan. She is tried other meds including amlodipine which led to some side effects. She had cough that she thought was on lisinopril. Today's blood pressure seems high but when I reviewed home diary, they seem have significant lower readings in the 120s, 130s and 140s but not this high. No specific cardiac symptoms but she does feel short of breath off and on. Not clear if it is from high blood pressure. [facility] Medical History Diverticulosis HLD (hyperlipidemia) HTN (hypertension) IBS (irritable bowel syndrome) Iron (Fe) deficiency anemia Surgical History History of esophagogastroduodenoscopy (EGD) Hx of colonoscopy Family History Father Cancer Sister Colon cancer Brother CAD (coronary artery disease) Social History Household Members: Spouse Housing: House Alcohol intake: never Patient Tobacco Use Status: Former Tobacco user service: No Current occupational status: employed Review of Systems Const Denies weakness ENT Denies dizziness Card Denies chest pain, Denies chest pain with activity, Denies syncope, Denies rapid heart rate, Denies pedal edema, Denies edema, Denies leg edema, Denies lightheadedness, Denies palpitations, Denies dyspnea, Denies dyspnea on exertion and Denies orthopnea Resp Denies cough, Denies dyspnea and Denies dyspnea on exertion GI Denies hematochezia and Denies change in stool character Musc Denies abnormal gait, Denies muscle cramps, Denies muscle weakness, Denies numbness, Denies radiating pain into limb and Denies tingling Neuro Denies abnormal gait, Denies dizziness, Denies syncope, Denies numbness, Denies tingling and Denies weakness Endo Denies palpitations Physical Exam Vital Signs: Last Vital Signs Pulse 71 02/26/24 14:13 BP 188/80 H 02/26/24 14:13 BMI result Body Mass Index 28.1 Const General: comfortable and no acute distress Orientation/consciousness: patient oriented x3 HEENT Other: Unremarkable Head: Yes normal to inspection Neck Neck: Yes normal visual inspection Chest Chest palpation & inspection: normal inspection of the chest Resp Auscultation: clear to auscultation bilaterally Cardio Palpation: normal PMI Heart sounds: S1 normal heart sound present, S2 normal heart sound present, no gallops, no murmurs and no rubs GI Palpation (GI): Soft to palpation Back/Spine/Pelvis Other: unremarkable Skin General skin exam: no rashes or lesions noted Neuro General: patient oriented x3 Extrem General: Yes normal to inspection Psych Mental Status: mental status grossly normal Office Procedures EKG Details: EKG with sinus rhythm at 71/Min; can not exclude old anterior infarct; rightward axis; [place] [id number]-[id number], Complete Assessment & Plan Assessment & Plan (1) HTN (hypertension): Code(s): I10 - Essential (primary) hypertension Plan Readings in the clinic are high but home readings are much lower. Unclear why there is discrepancy. Current meds include carvedilol 25 mg b.i.d. and losartan 50 mg b.i.d.. Issues with various meds including amlodipine, lisinopril, hydrochlorothiazide. It is very reasonable to get a 24 hour ambulatory blood pressure recording for further evaluation. Discussed with patient and she agrees. Renal Doppler does not show any evidence of renal artery stenosis. Last echocardiogram 2014-LVEF 60-65%. Normal diastolic filling. Due to complaints of shortness of breath, can repeat the study. Total time spent including review of data, counseling, documentation, coordination of care-31 minutes. Orders: Orders AMB 24 Hour Blood Pressure Monitor PLACEMENT Today I10 - Essential (primary) hypertension CA echo transthoracic complete Today R06.02 - Shortness of breath Medications: Changed From losartan 50 mg PO DAILY 90 tabs 3RF To losartan 50 mg PO BID Coding Level of Care Code Est Pt Level 4 (37721) Diagnoses HTN (hypertension) I10 CPT Codes EKG - CPT: 02260-[id number], Complete ([id number])
[2024-02-26 14:13] VITALS: BP 188/80; PULSE 71; BMI 28.1
== END 2024-02-26 14:52 | disposition home or self-care (01) ==
PROVIDERS: PCP Internal Medicine Cardiovascular Disease; Visit Provider Internal Medicine
DX: I10 Essential (primary) hypertension (principal)
CPT/HCPCS: 93010; 99214

== ENCOUNTER → 2024-02-26 14:02 | Outpatient (BNVA) | payer OTHER, SELFPAY | PROVIDERS: PCP Internal Medicine Cardiovascular Disease; Visit Provider Internal Medicine | DX: I10 Essential (primary) hypertension (principal); Z79.899 Other long term (current) drug therapy | CPT/HCPCS: 93005 ==

== ENCOUNTER 2024-03-18 14:41 | Outpatient (AMB) | payer OTHER, SELFPAY ==
--- NOTE | 2024-03-18 14:43 | A.OFFVIS_ITS ---
Vital Signs 03/18/24 14:45 Height 5 ft 6 in Weight 169 lb 12.095 oz BMI 27.4 BP 170/73 H Blood Pressure Location Lt brachial Position Sitting Pulse 81 Intake Visit Reasons: 6 mnth follow up Intake Note: Matilda presents in the office as a new patient for a 6 month follow up. CC: She states that she has a couple things she wants to run by [employer]. [employer] Reprocessing Associate Required: No Allergies penicillin V Allergy (Severe, Verified 03/18/24 14:47) Anaphylaxis amlodipine Allergy (Intermediate, Verified 03/18/24 14:47) welts on body meloxicam Allergy (Intermediate, Verified 03/18/24 14:47) Nausea, lightheaded REINALDO Inhibitors [REINALDO INHIBITORS] Allergy (Unknown, Verified 03/18/24 14:47) ALL SORTS OF DIFF RXNS hydrochlorothiazide Allergy (Unknown, Verified 03/18/24 14:47) dizziness Sulfa (Sulfonamide Antibiotics) [SULFA (SULFONAMIDE ANTIBIOTICS)] Allergy (Unknown, Verified 03/18/24 14:47) RASH,ITCHY lisinopril Adverse Reaction (Verified 03/18/24 14:47) Cough metformin Adverse Reaction (Verified 03/18/24 14:47) Stomach Upset Moexipril HCl Allergy (Unknown, Uncoded 03/18/24 14:47) Mouth, cheek & feet tingling. shaking, nausea HPI HPI 6 mnth follow up: Details: LAST VISIT: IBS (irritable bowel syndrome) Diverticulosis Postprandial diarrhea GERD (gastroesophageal reflux disease) Plan Patient can continue taking dicyclomine. Making sure that she drinks plenty fluids and takes fiber. As much as dicyclomine helps her to decrease the frequency loose stools it might cause slowing down of her bowel causing constipation. Continue probiotic. Continue low FODMAP diet. Avoid dietary triggers and late night snacking. Staying upright foraminal 3 hours after meals discussed with patient. Patient can continue omeprazole in the morning half an hour before breakfast. She can not take famotidine and bedtime on as needed basis. She will follow-up in the office in 6 months, sooner on as needed basis. She is agreeable to this plan and verbalizes understanding of instructions. She was given the opportunity to ask questions and all questions answered. ? Thank you for allowing me to participate in her care Medications New omeprazole 20 mg PO DAILY 90 caps 2RF K21.9 Refilled dicyclomine 30 MIN BEFORE MEAL 20 mg PO QID 120 tabs 3RF famotidine 20 mg PO DAILY PRN 90 tabs 3RF Acid Reflux K21.9 Discontinued omeprazole Discontinued Reason: Duplicate 20 mg PO DAILY 90 tabs 3RF K21.9 TODAY'S VISIT: Patient is here today for requested visit. Patient reports that in the past few weeks she has been suffering with more frequent loose stools after meals. Patient is taking Citrucel every morning, takes her dicyclomine with meals and despite taking the dicyclomine she would have 2-3 bowel movements postprandially. Difficult to deal with this when working. Patient reports that she took loperamide and then became constipated. Patient reports that she had to strain in order to have a bowel movement after episodes like that. Patient reports lower abdominal cramping that released after bowel movement. Patient reports that last week on SaturdayMarch 06 patient was at work and began to have headache with left eye pressure. RN checked her blood pressure and it was 210/130. Patient was sent to ER. Patient was at [facility]. Incidental finding of increased lipase, otherwise no acute findings. 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 Patient finding at approved to go for echocardiogram. Constant blood pressure monitoring ordered which patient will be testing soon. Currently waiting for the appointment. Patient denies any melena, hematochezia, unintentional weight loss or ribbon like stools. Patient denies any dyspepsia, dysphagia or odynophagia. She continues to take omeprazole daily. Tries to avoid dietary triggers. [facility] Medical History IBS (irritable bowel syndrome) HLD (hyperlipidemia) HTN (hypertension) Iron (Fe) deficiency anemia Diverticulosis Surgical History History of esophagogastroduodenoscopy (EGD) Hx of colonoscopy Family History Father Cancer Sister Colon cancer Brother CAD (coronary artery disease) Social History Household Members: Spouse Housing: House Alcohol intake: never Patient Tobacco Use Status: Former Tobacco user service: No Current occupational status: employed Review of Systems Const Denies weight gain and Denies weight loss ENT Reports no additional complaints, Denies dysphagia and Denies odynophagia Card Reports no additional complaints Resp Reports no additional complaints GI Reports abdominal pain, Denies belching, Denies melena, Denies bloating, Reports constipation, Denies dysphagia, Denies excessive flatus, Denies dyspepsia, Denies heartburn, Reports diarrhea, Denies nausea, Denies odynophagia and Denies vomiting Reports no additional complaints Musc Reports no additional complaints Neuro Reports no additional complaints Psych Reports no additional complaints Endo Reports no additional complaints Physical Exam Vital Signs: Last Vital Signs Pulse 81 03/18/24 14:45 BP 170/73 H 03/18/24 14:45 BMI result Body Mass Index 27.4 Const General: healthy appearing, no acute distress and well developed Nutritional Appearance: well nourished Orientation/consciousness: patient oriented x3 Resp Effort & Inspection: normal respiratory effort, able to speak in complete sentences, no tracheal deviation and symmetric chest movement Auscultation: clear to auscultation bilaterally Cardio Rate: regular rate GI Inspection: Yes normal to inspection and No distended Palpation (GI): Soft to palpation, not firm, nontender and No hepatosplenomegaly present Auscultation: normal bowel sounds General: Yes no CVA tenderness Back/Spine/Pelvis Back: no CVA tenderness Skin General skin exam: elasticity normal, turgor normal and dry skin Neuro General: patient oriented x3 Psych Appearance: grossly normal Mental Status: mental status grossly normal Assessment & Plan Assessment & Plan (1) IBS (irritable bowel syndrome): Code(s): K58.9 - Irritable bowel syndrome without diarrhea Category: Medical Qualifiers: Irritable bowel syndrome type: with both diarrhea and constipation Qualified Code(s): K58.2 - Mixed irritable bowel syndrome (2) Diverticulosis: Code(s): K57.90 - Diverticulosis of intestine, part unspecified, without perforation or abscess without bleeding (3) Postprandial diarrhea: Code(s): K52.9 - Noninfective gastroenteritis and colitis, unspecified (4) GERD (gastroesophageal reflux disease): Code(s): K21.9 - Gastro-esophageal reflux disease without esophagitis Qualifiers: Esophagitis presence: esophagitis presence not specified Qualified Code(s): K21.9 - Gastro-esophageal reflux disease without esophagitis (5) Chronic pancreatitis: Code(s): K86.1 - Other chronic pancreatitis Qualifiers: Pancreatitis type: idiopathic Qualified Code(s): K86.1 - Other chronic pancreatitis Plan Patient will increase fiber intake to 2 tablets daily. Patient will take Senokot in the evening to help her minute eliminate her bowels. Will repeat lipase and will check liver profile. Patient will be sent for ultrasound. I will see her in 5-6 weeks, sooner on as needed basis. Patient is agreeable to this plan and verbalizes understanding of instructions. She was given the opportunity to ask questions and all questions answered. Thank you for allowing me to participate in her care Orders: Orders Liver Panel Today R74.01 - Elevation of levels of liver transaminase levels US abdomen complete Today R10.9 - Unspecified abdominal pain Lipase Today R10.9 - Unspecified abdominal pain Medications: New sennosides (Natural Senna Laxative) 17.2 mg (2 x 8.6 mg) PO BEDTIME 60 tabs 3RF constipation K59.00 - Constipation, unspecified Changed From methylcellulose (laxative) (Citrucel) take it with full glass of water 500 mg PO DAILY 90 tabs 2RF K59.00 - Constipation, unspecified To methylcellulose (laxative) (Citrucel) take it with full glass of water 1,000 mg (2 x 500 mg) PO DAILY 180 tabs 2RF K59.00 - Constipation, unspecified Coding Level of Care Code Est Pt Level 4 (71429) Diagnoses Irritable bowel syndrome with both constipation and diarrhea K58.2 Irritable bowel syndrome type: with both diarrhea and constipation Diverticulosis K57.90 Postprandial diarrhea K52.9 Gastroesophageal reflux disease, unspecified whether esophagitis present K21.9 Esophagitis presence: esophagitis presence not specified Idiopathic chronic pancreatitis K86.1 Pancreatitis type: idiopathic Time Spent (min) 35 Comment 25 minutes spent with patient and additional 10 minutes spent reviewing her records
[2024-03-18 14:45] VITALS: BP 170/73; PULSE 81; BMI 27.4
== END 2024-03-18 15:29 | disposition home or self-care (01) ==
PROVIDERS: PCP Internal Medicine Cardiovascular Disease; Visit Provider Nurse Practitioner Family
DX: K58.2 Mixed irritable bowel syndrome (principal); K57.90 Diverticulosis of intestine, part unspecified, without perforation or abscess without bleeding; K21.9 Gastro-esophageal reflux disease without esophagitis; K86.1 Other chronic pancreatitis
CPT/HCPCS: 99214

== ENCOUNTER → 2024-03-18 14:41 | Outpatient (BNVA) | payer OTHER, SELFPAY | PROVIDERS: PCP Internal Medicine Cardiovascular Disease; Visit Provider Nurse Practitioner Family ==

== ENCOUNTER 2024-03-20 10:12 | Outpatient (REF) | payer OTHER, SELFPAY ==
--- NOTE | ~2024-03-20 | US_ITS ---
EXAMINATION: US ABDOMEN COMPLETE CLINICAL INFORMATION: Abdominal pain. COMPARISON: None available. TECHNIQUE: Real-time imaging of the abdominal viscera. FINDINGS: PANCREAS: Normal. ABDOMINAL AORTA: The proximal, mid, and distal segments are normal in caliber. INFERIOR VENA CAVA: Visualized portions are normal. LIVER: . The liver is normal in size. The liver contour is normal. Echotexture may be slightly increased. No focal hepatic lesion. There is no intrahepatic biliary duct dilatation seen. GALLBLADDER: Normal. The gallbladder is physiologically distended without evidence of stones, sludge, polyps, wall thickening or pericholecystic fluid. COMMON BILE DUCT: Normal in caliber measuring 0.4 cm in diameter. RIGHT KIDNEY: 1.7 x 1.8 cm simple cyst in the mid to lower pole. No imaging follow-up recommended. No hydronephrosis. No renal calculi or other focal parenchymal lesions. The kidney measures 8 cm in maximum dimension. LEFT KIDNEY: Normal. No hydronephrosis. No renal calculi or focal parenchymal lesions. The kidney measures 10 cm in maximum dimension. SPLEEN: Normal. The spleen measures 10 cm in maximum dimension. FREE FLUID: None. US/US abdomen complete IMPRESSION: Slightly echogenic liver, probably representing mild fatty infiltration. Otherwise unremarkable exam.
== END 2024-03-20 10:13 | disposition home or self-care (01) ==
LOC: HO.US 10:12
PROVIDERS: PCP Internal Medicine Cardiovascular Disease; Visit Provider Nurse Practitioner Family
DX: R10.9 Unspecified abdominal pain (principal)
CPT/HCPCS: 76700

== ENCOUNTER → 2024-03-20 12:54 | Outpatient (REF) | payer OTHER, SELFPAY ==
--- NOTE | 2024-03-20 12:58 | CA_ITS ---
Transthoracic Echocardiogram Patient (Last, First, Middle): Matilda Kidd, Gender: Female Date of : 1960 Age: 63 Procedure Date: 03/20/2024 Procedure Type: Transthoracic Echocardiogram Location: OP Height: 167.64 cm Weight: 76.66 kg BSA: 1.86 m2 Heart Rate: 70 bpm BP: 164 / 68 mmHg Live Truck Operator: SB Referring MD: José Manuel Elias MD Drop Hammer Mechanic: Chip Nicole MD Symptoms: R06.02 - Shortness of breath Study Quality: Adequate ECG Rhythm: Sinus Conclusions: - Normal study Findings Left Ventricle Normal left ventricular size, thickness, and systolic function. The visually estimated ejection fraction is between 65-70%. Diastolic function is normal for age. Peak GLS is -19.8%, within normal limits Right Ventricle Normal right ventricular cavity size and systolic function. Atria Both atria are normal in size. There is no evidence of interatrial shunt. Aortic Valve Normal aortic valve structure and function. There is no aortic valve stenosis. There is no aortic valve regurgitation. Mitral Valve Normal mitral valve structure and function. There is no mitral valve regurgitation. There is no mitral valve stenosis. Pulmonic Valve The pulmonic valve is likely normal. Tricuspid Valve Normal tricuspid valve structure. Tricuspid regurgitation envelope is inadequate for calculation of right ventricular systolic pressure. Normal right atrial pressure. Great Vessels All visible segments of the aorta are normal in size. The pulmonary artery was not well visualized. Venous The inferior vena cava is normal in size. Inferior vena cava flow is normal. Pericardium/Pleural There is no evidence of pericardial effusion. Measurements 2D Linear Measurements IVSd: 0.94 0.6-0.9/0.6-1.0 cm LVIDd: 4.69 3.9-5.3/4.2-5.9 cm LVIDd Index: 2.52 2.4-3.2/2.2-3.1 cm/m2 LVIDs: 2.75 2.0-3.6 cm LVPWd: 0.91 0.7-1.1 cm LA Diam: 3.90 2.7-3.8/3.0-4.0 cm LAIDs Index: 2.10 1.5-2.3 cm/m2 LV Mass: 182.96 67-162/88-224 g LV Mass Index: 98.37 43-95/49-115 g/m2 LVOT Diam: 2.20 3.0+(-)1.3 cm 2D Systolic Function EF 4C: 65.60 >55% EF 2C: 68.40 >55% EF BiP: 67.20 >55% Mitral Valve MV Pk E: 1.00 MV PK A: 0.94 MV Decel Time: 171.00 E/A: 1.10 E'Lateral: 5.55 E'Medial: 6.53 E/E' Med: 15.30 E/E' Lat: 18.00 PHT: 50.00 MVA PHT: 4.40 Decel [place]: 5.83 Aortic Valve AoV Pk Zacarias: 1.33 AoV Pk Grad: 7.00 CHEIKH: 2.63 LVOT LVOT Pk Zacarias: 0.94 LVOT Mn Zacarias: 0.65 LVOT VTI: 0.21 LVOT Pk Grad: 4.00 LVOT Mn Grad: 2.00 LVOT Diam: 2.20 LVOT Area: 3.80 Diastolic Function MV Pk E: 1.00 MV Pk A: 0.94 E/A: 1.10 E'Medial: 6.53 E/E' Med: 15.30 E' Laterial: 5.55 E/E' Lat: 18.00 Right Ventricle TAPSE (mm): 22.10 TVS' Zacarias: 16.40 Tricuspid Valve RA Press: 3.00 Great Vessels Aorta Sinus of Valsalva: 3.20 2.0-3.5 cm Ao Asc: 3.10 2.1-3.4 cm Ao Arch: 2.90 Pulmonary Veins Pulm Vein S/D 1.50 Pulmonary Valve PV Pk Zacarias: 1.01 Peak PV Grad: 4.00 Updated in Other Vendor System with Status of Final Chip Nicole MD electronically signed on 03/21/2024 6:57:07 AM with status of Final
== END ==
LOC: HO.CARD 12:54
PROVIDERS: PCP Internal Medicine Cardiovascular Disease; Visit Provider Internal Medicine
DX: R06.02 Shortness of breath (principal)
CPT/HCPCS: 93306; 93356

== ENCOUNTER → 2024-03-20 12:58 | Outpatient (BNV) | payer OTHER, SELFPAY | PROVIDERS: PCP Internal Medicine Cardiovascular Disease; Visit Provider Internal Medicine Cardiovascular Disease | DX: R06.02 Shortness of breath (principal) | CPT/HCPCS: 93306; 93356 ==

== ENCOUNTER 2024-05-15 15:07 | Outpatient (AMB) | payer OTHER, SELFPAY ==
--- NOTE | 2024-05-15 15:20 | A.OFFVIS_ITS ---
Vital Signs 05/15/24 15:30 Height 5 ft 6 in Weight 165 lb 12.602 oz BMI 26.8 BP 142/66 H Blood Pressure Location Rt brachial Position Sitting Pulse 72 Pulse Source Pulse Oximeter Pulse Oximetry (%) 94 Oxygen Delivery Method Room Air Intake Visit Reasons: 2 month follow up Intake Note: Matilda presents in office today for a scheduled 2 mos. FUV. CC; Matilda was started on senna and citrucel at her last visit. Pt was also seen for their US. Pt still has outstanding lab orders active. Pt reports that they have not been taking the senna as they did not see any noticeable difference while on the medication. 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 Allergies penicillin V Allergy (Severe, Verified 05/15/24 15:29) Anaphylaxis amlodipine Allergy (Intermediate, Verified 05/15/24 15:29) welts on body meloxicam Allergy (Intermediate, Verified 05/15/24 15:29) Nausea, lightheaded REINALDO Inhibitors [REINALDO INHIBITORS] Allergy (Unknown, Verified 05/15/24 15:29) ALL SORTS OF DIFF RXNS hydrochlorothiazide Allergy (Unknown, Verified 05/15/24 15:29) dizziness Sulfa (Sulfonamide Antibiotics) [SULFA (SULFONAMIDE ANTIBIOTICS)] Allergy (Unknown, Verified 05/15/24 15:29) RASH,ITCHY lisinopril Adverse Reaction (Verified 05/15/24 15:29) Cough metformin Adverse Reaction (Verified 05/15/24 15:29) Stomach Upset Moexipril HCl Allergy (Unknown, Uncoded 03/18/24 14:47) Mouth, cheek & feet tingling. shaking, nausea HPI HPI 2 month follow up: Details: LAST VISIT: IBS (irritable bowel syndrome) Diverticulosis Postprandial diarrhea GERD (gastroesophageal reflux disease) Chronic pancreatitis Plan Patient will increase fiber intake to 2 tablets daily. Patient will take Senokot in the evening to help her minute eliminate her bowels. Will repeat lipase and will check liver profile. Patient will be sent for ultrasound. I will see her in 5-6 weeks, sooner on as needed basis. Patient is agreeable to this plan and verbalizes understanding of instructions. She was given the opportunity to ask questions and all questions answered. ? Thank you for allowing me to participate in her care Orders Orders Liver Panel Today R74.01 US abdomen complete Today R10.9 Lipase Today R10.9 Medications New sennosides (Natural Senna Laxative) 17.2 mg (2 x 8.6 mg) PO BEDTIME 60 tabs 3RF constipation K59.00 Changed Changed From methylcellulose (laxative) (Citrucel) take it with full glass of water 500 mg PO DAILY 90 tabs 2RF K59.00 Changed To methylcellulose (laxative) (Citrucel) take it with full glass of water 1,000 mg (2 x 500 mg) PO DAILY 180 tabs 2RF K59.00 TODAY'S VISIT Patient is here today for follow-up and to discuss lab and ultrasound results. Patient forgot to get her blood work done, however ultrasound was done and did not show any acute processes. Increase echogenicity of the liver, fatty infiltration of the liver. Patient denies drinking alcohol. Patient reports that she usually eats food that is low in fat. Patient reports to be feeling well. Has not taking Senokot. Takes 2 Citrucel tablets after breakfast. Patient reports that she usually takes dicyclomine before breakfast, has her breakfast and then take Citrucel. Patient will also take dicyclomine in the afternoon. Patient states that normally she is doing well, however she had 2 episodes of diarrhea at work that 1 time she was unable to make it to the bathr oom. Patient noticed that she was very stressed out the work and thinks that this could cause her symptoms get exacerbated. Patient denies any melena, hematochezia, unintentional weight loss or ribbon like stools. Patient denies any dyspepsia, dysphagia or odynophagia. Patient reports that she has been taking probiotics daily. Takes omeprazole in the morning and famotidine on as needed basis at bedtime. Patient otherwise reports to be doing well. ON LICENSE OF [facility] Medical History IBS (irritable bowel syndrome) HLD (hyperlipidemia) HTN (hypertension) Iron (Fe) deficiency anemia Diverticulosis Surgical History History of esophagogastroduodenoscopy (EGD) Hx of colonoscopy Family History Father Cancer Sister Colon cancer Brother CAD (coronary artery disease) Social History Household Members: Spouse Housing: House Alcohol intake: never Patient Tobacco Use Status: Former Tobacco user service: No Current occupational status: employed Review of Systems Const Denies weight gain and Denies weight loss ENT Reports no additional complaints, Denies dysphagia and Denies odynophagia Card Reports no additional complaints Resp Reports no additional complaints GI Denies abdominal pain, Denies belching, Denies melena, Denies bloating, Denies change in bowel habits, Denies dysphagia, Denies excessive flatus, Denies dyspepsia, Denies heartburn, Denies diarrhea, Denies loose stools, Denies nausea, Denies odynophagia and Denies vomiting Musc Reports no additional complaints Neuro Reports no additional complaints Psych Reports no additional complaints Endo Reports no additional complaints Physical Exam Vital Signs: Last Vital Signs Pulse 72 05/15/24 15:30 BP 142/66 H 05/15/24 15:30 Pulse Ox 94 05/15/24 15:30 Oxygen Delivery Method Room Air 05/15/24 15:30 BMI result Body Mass Index 26.8 Const General: healthy appearing, no acute distress and well developed Nutritional Appearance: well nourished Orientation/consciousness: patient oriented x3 Resp Effort & Inspection: normal respiratory effort, able to speak in complete sentences, no tracheal deviation and symmetric chest movement Auscultation: clear to auscultation bilaterally Cardio Rate: regular rate GI Inspection: Yes normal to inspection, No distended and Yes obesity Palpation (GI): Soft to palpation, not firm, nontender and No hepatosplenomegaly present Auscultation: normal bowel sounds General: Yes no CVA tenderness Back/Spine/Pelvis Back: no CVA tenderness Skin General skin exam: elasticity normal, turgor normal and dry skin Neuro General: patient oriented x3 Psych Appearance: grossly normal Mental Status: mental status grossly normal Results Reviewed Results Reviewed: LAST VISIT FINDINGS: PANCREAS: Normal. ABDOMINAL AORTA: The proximal, mid, and distal segments are normal in caliber. INFERIOR VENA CAVA: Visualized portions are normal. LIVER: . The liver is normal in size. The liver contour is normal. Echotexture may be slightly increased. No focal hepatic lesion. There is no intrahepatic biliary duct dilatation seen. GALLBLADDER: Normal. The gallbladder is physiologically distended without evidence of stones, sludge, polyps, wall thickening or pericholecystic fluid. COMMON BILE DUCT: Normal in caliber measuring 0.4 cm in diameter. RIGHT KIDNEY: 1.7 x 1.8 cm simple cyst in the mid to lower pole. No imaging follow-up recommended. No hydronephrosis. No renal calculi or other focal parenchymal lesions. The kidney measures 8 cm in maximum dimension. LEFT KIDNEY: Normal. No hydronephrosis. No renal calculi or focal parenchymal lesions. The kidney measures 10 cm in maximum dimension. SPLEEN: Normal. The spleen measures 10 cm in maximum dimension. FREE FLUID: None. US/US abdomen complete IMPRESSION: Slightly echogenic liver, probably representing mild fatty infiltration. Otherwise unremarkable exam. Assessment & Plan Assessment & Plan (1) IBS (irritable bowel syndrome): Code(s): K58.9 - Irritable bowel syndrome without diarrhea Category: Medical Qualifiers: Irritable bowel syndrome type: with both diarrhea and constipation Qualified Code(s): K58.2 - Mixed irritable bowel syndrome (2) Diverticulosis: Code(s): K57.90 - Diverticulosis of intestine, part unspecified, without perforation or abscess without bleeding (3) Postprandial diarrhea: Code(s): K52.9 - Noninfective gastroenteritis and colitis, unspecified (4) GERD (gastroesophageal reflux disease): Code(s): K21.9 - Gastro-esophageal reflux disease without esophagitis Qualifiers: Esophagitis presence: esophagitis presence not specified Qualified Code(s): K21.9 - Gastro-esophageal reflux disease without esophagitis (5) Chronic pancreatitis: Code(s): K86.1 - Other chronic pancreatitis Qualifiers: Pancreatitis type: idiopathic Qualified Code(s): K86.1 - Other chronic pancreatitis Plan Continue current regimen with dicyclomine and fiber. Patient may take probiotics. Discussed with patient the importance of trying to reduce stress to prevent her having accidents. Continue omeprazole daily. Avoid dietary triggers and late night snacking. Staying upright for minimum 3 hours after meals discussed with patient. Patient will get her blood work done today. Follow-up in 3 months, sooner on as needed basis. She is agreeable to this plan and verbalizes understanding of instructions. She was given the opportunity to ask questions and all questions answered. Thank you for allowing me to participate in her care Coding Level of Care Code Est Pt Level 4 (05598) Diagnoses Irritable bowel syndrome with both constipation and diarrhea K58.2 Irritable bowel syndrome type: with both diarrhea and constipation Diverticulosis K57.90 Postprandial diarrhea K52.9 Gastroesophageal reflux disease, unspecified whether esophagitis present K21.9 Esophagitis presence: esophagitis presence not specified Idiopathic chronic pancreatitis K86.1 Pancreatitis type: idiopathic Time Spent (min) 35 Comment 20 minutes spent with patient and additional 15 minutes spent reviewing her records
[2024-05-15 15:30] VITALS: BP 142/66; PULSE 72; O2SAT 94; BMI 26.8
== END 2024-05-15 16:11 | disposition home or self-care (01) ==
PROVIDERS: PCP Internal Medicine Cardiovascular Disease; Visit Provider Nurse Practitioner Family
DX: K58.2 Mixed irritable bowel syndrome (principal); K57.90 Diverticulosis of intestine, part unspecified, without perforation or abscess without bleeding; K21.9 Gastro-esophageal reflux disease without esophagitis; K86.1 Other chronic pancreatitis
CPT/HCPCS: 99214

== ENCOUNTER 2024-05-15 15:07 | Outpatient (REF) | payer OTHER, SELFPAY ==
[2024-05-15 18:52] LABS: Alanine Aminotransferase 20 U/L (0-31); Albumin Level 4.6 g/dL (3.5-5.0); Alkaline Phosphatase 121 U/L (39-117); Aspartate Amino Transferase 18 U/L (5-31); Bilirubin Direct 0.1 mg/dL (0.0-0.5); Bilirubin Total 0.3 mg/dL (0.0-1.0); Lipase 28 U/L (8-78); Total Protein 7.5 g/dL (6.5-8.0)
== END 2024-05-15 15:08 | disposition home or self-care (01) ==
LOC: HO.LAB 15:07
PROVIDERS: PCP Internal Medicine Cardiovascular Disease; Visit Provider Nurse Practitioner Family
DX: R10.9 Unspecified abdominal pain (principal); R74.01 Elevation of levels of liver transaminase levels; K57.90 Diverticulosis of intestine, part unspecified, without perforation or abscess without bleeding; K52.9 Noninfective gastroenteritis and colitis, unspecified; K21.9 Gastro-esophageal reflux disease without esophagitis; K86.1 Other chronic pancreatitis
CPT/HCPCS: 36415; 80076; 83690

== ENCOUNTER 2024-07-29 13:09 | Outpatient (AMB) | payer OTHER, SELFPAY ==
--- NOTE | 2024-07-29 13:10 | A.OFFVIS_ITS ---
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: No Accompanied by: Self / Same As Patient Allergies penicillin V Allergy (Severe, Verified 05/15/24 15:29) Anaphylaxis amlodipine Allergy (Intermediate, Verified 05/15/24 15:29) welts on body meloxicam Allergy (Intermediate, Verified 05/15/24 15:29) Nausea, lightheaded REINALDO Inhibitors [REINALDO INHIBITORS] Allergy (Unknown, Verified 05/15/24 15:29) ALL SORTS OF DIFF RXNS hydrochlorothiazide Allergy (Unknown, Verified 05/15/24 15:29) dizziness Sulfa (Sulfonamide Antibiotics) [SULFA (SULFONAMIDE ANTIBIOTICS)] Allergy (Unknown, Verified 05/15/24 15:29) RASH,ITCHY lisinopril Adverse Reaction (Verified 05/15/24 15:29) Cough metformin Adverse Reaction (Verified 05/15/24 15:29) Stomach Upset Moexipril HCl Allergy (Unknown, Uncoded 03/18/24 14:47) Mouth, cheek & feet tingling. shaking, nausea Medication List - Last Reconciled 07/29/24 by José Manuel Elias MD atorvastatin 20 mg PO DAILY carvedilol 25 mg PO BID dicyclomine 20 mg PO QID famotidine 20 mg PO DAILY PRN metformin ER 500 mg PO DAILY methylcellulose (laxative) (Citrucel) 1,000 mg (2 x 500 mg) PO DAILY olmesartan 40 mg PO DAILY omeprazole 20 mg PO DAILY [Probiotic 1 Billion [place] Bounty 1 cap PO DAILY] HPI Comments Details: Matilda returns for follow up regarding uncontrolled hypertension. Per patient, she has had hypertension more than 20 years. She has numerous listed allergies to medications and hence very difficult to manage. More recently, she has been on Coreg and losartan. But then, it seems her primary care physician switch the losartan to olmesartan. She is tried other meds including amlodipine which led to some side effects. She had cough that she thought was from lisinopril. Today's blood pressure is again high but she states home blood pressures only in the 120s and 130s and rarely higher than that. She does not have any cardiac symptoms otherwise. During last visit, we ordered a 24 hour blood pressure monitor but it has not been completed. FORMERLY [facility] Medical History IBS (irritable bowel syndrome) HLD (hyperlipidemia) HTN (hypertension) Iron (Fe) deficiency anemia Diverticulosis Surgical History History of esophagogastroduodenoscopy (EGD) Hx of colonoscopy Family History Father Cancer Sister Colon cancer Brother CAD (coronary artery disease) Social History Household Members: Spouse Housing: House Alcohol intake: never Patient Tobacco Use Status: Former Tobacco user service: No Current occupational status: employed Review of Systems Const Denies chills, Denies fatigue, Denies fever(s), Denies weight gain and Denies weight loss ENT Denies dizziness Card Denies chest pain, Denies leg edema, Denies lightheadedness, Denies palpitations, Denies dyspnea on exertion, Denies orthopnea and Denies other Resp Denies cough and Denies dyspnea on exertion GI Denies hematochezia and Denies change in stool character Musc Denies abnormal gait, Denies muscle weakness, Denies numbness, Denies radiating pain into limb and Denies tingling Neuro Denies abnormal gait, Denies dizziness, Denies numbness and Denies tingling Endo Denies fatigue and Denies palpitations Physical Exam Vital Signs: Last Vital Signs Pulse 78 07/29/24 13:11 BP 164/60 H 07/29/24 13:11 BMI result Body Mass Index 28.0 Const General: comfortable and no acute distress Orientation/consciousness: patient oriented x3 HEENT Other: Unremarkable Head: Yes normal to inspection Neck Neck: Yes normal visual inspection Chest Chest palpation & inspection: normal inspection of the chest Resp Auscultation: clear to auscultation bilaterally Cardio Palpation: normal PMI Heart sounds: S1 normal heart sound present, S2 normal heart sound present, no gallops, no murmurs and no rubs GI Palpation (GI): Soft to palpation Back/Spine/Pelvis Other: unremarkable Skin General skin exam: no rashes or lesions noted Neuro General: patient oriented x3 Extrem General: Yes normal to inspection Psych Mental Status: mental status grossly normal Assessment & Plan Assessment & Plan (1) HTN (hypertension): Code(s): I10 - Essential (primary) hypertension Category: Medical Plan Readings in the clinic are high but home readings are much lower. Unclear why there is discrepancy. Current meds include carvedilol 25 mg b.i.d. and olmesartan 40 mg daily. Issues with various meds including amlodipine, lisinopril, hydrochlorothiazide. During last visit, 24 hour ambulatory blood pressure monitoring was ordered but not yet completed. We will send a referral to Nephrology to get this sorted out. Otherwise, renal Doppler does not show any renal artery stenosis. Echocardiogram with LVEF of 65-70%, normal peak global longitudinal strain and otherwise unremarkable. Total time spent including review of data, counseling, documentation, coordination of care-32 minutes. Orders: Referrals Nephrology Referral I10 - Essential (primary) hypertension Coding Level of Care Code Est Pt Level 4 (19680) Diagnoses HTN (hypertension) I10
[2024-07-29 13:11] VITALS: BP 164/60; PULSE 78; BMI 28.0
== END 2024-07-29 13:44 | disposition home or self-care (01) ==
PROVIDERS: PCP Internal Medicine Cardiovascular Disease; Visit Provider Internal Medicine
DX: I10 Essential (primary) hypertension (principal)
CPT/HCPCS: 99214

== ENCOUNTER → 2024-07-29 13:09 | Outpatient (BNVA) | payer OTHER, SELFPAY | PROVIDERS: PCP Internal Medicine Cardiovascular Disease; Visit Provider Internal Medicine ==

== ENCOUNTER → 2024-08-17 15:50 | Outpatient (AMB) | payer OTHER, SELFPAY ==
[2024-08-17 15:55] VITALS: BP 144/76; PULSE 58; O2SAT 97; BMI 26.4
--- NOTE | 2024-08-17 15:55 | A.OFFVIS_ITS ---
Vital Signs 08/17/24 15:55 Height 5 ft 6 in Weight 163 lb 9.328 oz BMI 26.4 BP 144/76 H Blood Pressure Location Rt brachial Position Sitting Pulse 58 Pulse Source Pulse Oximeter Pulse Oximetry (%) 97 Oxygen Delivery Method Room Air Intake Visit Reasons: 3 month follow up Intake Note: Matilda presents in office today for a scheduled 3 mos FUV. CC; Pt is here today for a general progress FUV. Pt reports that they have remained stable since their last visit. Pt denies any GI related concerns. Pt does report having some difficulty with her arthritis, however, nothing else to report. 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: No Allergies penicillin V Allergy (Severe, Verified 09/04/24 15:08) Anaphylaxis amlodipine Allergy (Intermediate, Verified 09/04/24 15:08) welts on body meloxicam Allergy (Intermediate, Verified 09/04/24 15:08) Nausea, lightheaded REINALDO Inhibitors [REINALDO INHIBITORS] Allergy (Unknown, Verified 09/04/24 15:08) ALL SORTS OF DIFF RXNS hydrochlorothiazide Allergy (Unknown, Verified 09/04/24 15:08) dizziness Sulfa (Sulfonamide Antibiotics) [SULFA (SULFONAMIDE ANTIBIOTICS)] Allergy (Unknown, Verified 09/04/24 15:08) RASH,ITCHY lisinopril Adverse Reaction (Verified 09/04/24 15:08) Cough metformin Adverse Reaction (Verified 09/04/24 15:08) Stomach Upset Moexipril HCl Allergy (Unknown, Uncoded 03/18/24 14:47) Mouth, cheek & feet tingling. shaking, nausea HPI HPI 3 month follow up: Details: LAST VISIT IBS (irritable bowel syndrome) Diverticulosis Postprandial diarrhea GERD (gastroesophageal reflux disease) Chronic pancreatitis Plan Continue current regimen with dicyclomine and fiber. Patient may take probiotics. Discussed with patient the importance of trying to reduce stress to prevent her having accidents. Continue omeprazole daily. Avoid dietary triggers and late night snacking. Staying upright for minimum 3 hours after meals discussed with patient. Patient will get her blood work done today. Follow-up in 3 months, sooner on as needed basis. She is agreeable to this plan and verbalizes understanding of instructions. She was given the opportunity to ask questions and all questions answered. ? TODAY'S VISIT Patient is here today for follow-up. Patient reports that she has been feeling well for the most part. Continues to take dicyclomine with food. States that omeprazole has been working and she has not experienced acid reflux. Does reports of couple accidents and unable to make it to the bathroom. Patient knows not to eat certain as she will have postprandial diarrhea. Patient admits that sometimes she feels like stress plays a big role with her having loose stools. Patient reports when she is stressed out she will have lower abdominal cramping and then the urge to go to the bathroom. Patient denies melena, hematochezia. Patient denies any nausea or vomiting. Not truly following low FODMAP diet. [facility] Medical History IBS (irritable bowel syndrome) HLD (hyperlipidemia) HTN (hypertension) Iron (Fe) deficiency anemia Diverticulosis Surgical History History of esophagogastroduodenoscopy (EGD) Hx of colonoscopy Family History Father Cancer Sister Colon cancer Brother CAD (coronary artery disease) Social History Household Members: Spouse Housing: House Alcohol intake: never Patient Tobacco Use Status: Former Tobacco user service: No Current occupational status: employed Review of Systems Const Denies weight gain and Denies weight loss ENT Reports no additional complaints, Denies dysphagia and Denies odynophagia Card Reports no additional complaints Resp Reports no additional complaints GI Denies abdominal pain, Denies belching, Denies melena, Denies bloating, Denies change in bowel habits, Denies dysphagia, Denies excessive flatus, Denies dyspepsia, Denies heartburn, Denies diarrhea, Denies loose stools, Denies nausea, Denies odynophagia and Denies vomiting Musc Reports no additional complaints Neuro Reports no additional complaints Psych Reports no additional complaints Endo Reports no additional complaints Physical Exam Vital Signs: Last Vital Signs Pulse 58 08/17/24 15:55 BP 144/76 H 08/17/24 15:55 Pulse Ox 97 08/17/24 15:55 Oxygen Delivery Method Room Air 08/17/24 15:55 BMI result Body Mass Index 26.4 Const General: healthy appearing, no acute distress and well developed Nutritional Appearance: well nourished Orientation/consciousness: patient oriented x3 Resp Effort & Inspection: normal respiratory effort, able to speak in complete sentences, no tracheal deviation and symmetric chest movement Auscultation: clear to auscultation bilaterally Cardio Rate: regular rate GI Inspection: Yes normal to inspection, No distended and Yes obesity Palpation (GI): Soft to palpation, not firm, nontender and No hepatosplenomegaly present Auscultation: normal bowel sounds General: Yes no CVA tenderness Back/Spine/Pelvis Back: no CVA tenderness Skin General skin exam: elasticity normal, turgor normal and dry skin Neuro General: patient oriented x3 Psych Appearance: grossly normal Mental Status: mental status grossly normal Assessment & Plan Assessment & Plan (1) IBS (irritable bowel syndrome): Code(s): K58.9 - Irritable bowel syndrome, unspecified Category: Medical Qualifiers: Irritable bowel syndrome type: with both diarrhea and constipation Qualified Code(s): K58.2 - Mixed irritable bowel syndrome (2) Diverticulosis: Code(s): K57.90 - Diverticulosis of intestine, part unspecified, without perforation or abscess without bleeding (3) Postprandial diarrhea: Code(s): K52.9 - Noninfective gastroenteritis and colitis, unspecified (4) GERD (gastroesophageal reflux disease): Code(s): K21.9 - Gastro-esophageal reflux disease without esophagitis Qualifiers: Esophagitis presence: esophagitis presence not specified Qualified Code(s): K21.9 - Gastro-esophageal reflux disease without esophagitis (5) Chronic pancreatitis: Code(s): K86.1 - Other chronic pancreatitis Qualifiers: Pancreatitis type: idiopathic Qualified Code(s): K86.1 - Other chronic pancreatitis Plan Continue PPI use daily. Avoid dietary triggers. Stressed the importance staying upright for minimum 3 hours after meals. Patient will try to stick more to low FODMAP diet. List of food recommended as well as list of food to avoid given to patient. Continue dicyclomine. Patient was also encouraged to take probiotics with fiber supplements. Long discussion with patient about diet changes. Avoiding fast food. Avoiding carbohydrates as much as possible and lactose. Follow-up in the office in 2 months, sooner on as needed basis. She is agreeable to this plan and verbalizes understanding of instructions. She was given the opportunity to ask questions and all questions answered. Coding Level of Care Code Est Pt Level 3 (47295) Complex EM visit Add On G2211 Diagnoses Irritable bowel syndrome with both constipation and diarrhea K58.2 Irritable bowel syndrome type: with both diarrhea and constipation Diverticulosis K57.90 Postprandial diarrhea K52.9 Gastroesophageal reflux disease, unspecified whether esophagitis present K21.9 Esophagitis presence: esophagitis presence not specified Idiopathic chronic pancreatitis K86.1 Pancreatitis type: idiopathic Time Spent (min) 35 Comment 25 minutes spent with patient and additional 10 minutes spent reviewing her records
== END ==
PROVIDERS: PCP Internal Medicine Cardiovascular Disease; Visit Provider Nurse Practitioner Family
DX: K58.2 Mixed irritable bowel syndrome (principal); K57.90 Diverticulosis of intestine, part unspecified, without perforation or abscess without bleeding; K21.9 Gastro-esophageal reflux disease without esophagitis; K86.1 Other chronic pancreatitis
CPT/HCPCS: 99213; G2211

== ENCOUNTER → 2024-08-17 15:50 | Outpatient (BNVA) | payer OTHER, SELFPAY | PROVIDERS: PCP Internal Medicine Cardiovascular Disease; Visit Provider Nurse Practitioner Family ==

== ENCOUNTER 2024-08-25 11:30 | Outpatient (AMB) | payer OTHER, SELFPAY ==
[2024-08-25 11:39] VITALS: BP 142/70; PULSE 76; O2SAT 96; BMI 26.0
--- NOTE | 2024-08-25 11:39 | HO.NEPHOV ---
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: No Accompanied by: Self / Same As Patient Allergies penicillin V Allergy (Severe, Verified 08/25/24 11:40) Anaphylaxis amlodipine Allergy (Intermediate, Verified 08/25/24 11:40) welts on body meloxicam Allergy (Intermediate, Verified 08/25/24 11:40) Nausea, lightheaded REINALDO Inhibitors [REINALDO INHIBITORS] Allergy (Unknown, Verified 08/25/24 11:40) ALL SORTS OF DIFF RXNS hydrochlorothiazide Allergy (Unknown, Verified 08/25/24 11:40) dizziness Sulfa (Sulfonamide Antibiotics) [SULFA (SULFONAMIDE ANTIBIOTICS)] Allergy (Unknown, Verified 08/25/24 11:40) RASH,ITCHY lisinopril Adverse Reaction (Verified 08/25/24 11:40) Cough metformin Adverse Reaction (Verified 08/25/24 11:40) Stomach Upset Moexipril HCl Allergy (Unknown, Uncoded 03/18/24 14:47) Mouth, cheek & feet tingling. shaking, nausea Medication List - Last Reconciled 08/25/24 by Robinson Rivera MD atorvastatin 20 mg PO DAILY carvedilol 25 mg PO BID cyclobenzaprine 10 mg PO BEDTIME PRN dicyclomine 20 mg PO QID famotidine 20 mg PO DAILY PRN metformin ER 500 mg PO DAILY methylcellulose (laxative) (Citrucel) 1,000 mg PO DAILY PRN olmesartan 40 mg PO DAILY omeprazole 20 mg PO DAILY [Probiotic 1 Billion Natures Bounty 1 cap PO DAILY] HPI Comments Details: Matilda is a pleasant 64 year woman with a history of hypertension. She has had hypertension for almost 30 years. She was started various medications. There has been significant fluctuation of blood pressure and hence this referral. Currently she is on olmesartan 40 mg and carvedilol 25 mg b.i.d. She has been monitoring blood pressure at home. Most of the blood pressure readings are acceptable. Few readings were around 170/77 and there was a reading around 103/49. She has been asymptomatic. She underwent renal ultrasonogram and there was no evidence of renal artery stenosis by Doppler back in 2020. Recently diagnosed with diabetes mellitus and started on metformin. History of significant arthritis. For last few months she has been taking ibuprofen 2 tablets a day along with Tylenol. History of pancreatitis. History of significant iron deficiency anemia in 2020. Hemoglobin was as low as 6.8. Underwent endoscopy and colonoscopy. Not on any iron supplementation at present. [facility] Medical History (Reviewed 08/17/24 @ 15:56 by Jassi Nevarez [facility]) IBS (irritable bowel syndrome) HLD (hyperlipidemia) HTN (hypertension) Iron (Fe) deficiency anemia Diverticulosis Surgical History History of esophagogastroduodenoscopy (EGD) Hx of colonoscopy Family History Father Cancer Sister Colon cancer Brother CAD (coronary artery disease) Social History Household Members: Spouse Housing: House Alcohol intake: never Patient Tobacco Use Status: Former Tobacco user service: No Current occupational status: employed Review of Systems Const Denies fever(s) and Denies weight loss Card Denies chest pain Resp Denies cough and Denies hemoptysis GI Denies abdominal pain, Denies diarrhea and Denies nausea Neuro Denies focal weakness Physical Exam Vital Signs: Last Vital Signs Pulse 76 08/25/24 11:39 BP 142/70 H 08/25/24 11:39 Pulse Ox 96 08/25/24 11:39 Oxygen Delivery Method Room Air 08/25/24 11:39 BMI result Body Mass Index 26.0 Blood pressure is symmetrical in both upper extremities at 140/60. No orthostatic changes Const General: comfortable; No acute distress Orientation/consciousness: patient oriented x3 Eyes General: appearance normal, both eyes and all related structures Visual Pablo: normal visual pablo by confrontation Neck Neck: Yes supple and Yes no JVD Resp Effort & Inspection: normal respiratory effort and respiratory effort not decreased Auscultation: rhonchi Cardio Palpation: no palpable S3 and no palpable S4 Heart sounds: no rubs GI Inspection: Yes normal to inspection Palpation (GI): Soft to palpation Percussion: Yes normal to percussion Auscultation: normal bowel sounds General: Yes no CVA tenderness Back/Spine/Pelvis Back: no CVA tenderness Skin General skin exam: no petechiae and no purpura Neuro General: patient oriented x3 and no focal motor deficits Extrem General: No clubbing and No edema Results Reviewed Results Reviewed: Recent creatinine was 0.9. Nephrology Results: No Data to Display Assessment & Plan Assessment & Plan (1) Uncontrolled hypertension: Code(s): I10 - Essential (primary) hypertension Category: Medical (2) Iron (Fe) deficiency anemia: Code(s): D50.9 - Iron deficiency anemia, unspecified Category: Medical Qualifiers: Iron deficiency anemia type: unspecified iron deficiency Qualified Code(s): D50.9 - Iron deficiency anemia, unspecified Plan [age] year woman with longstanding hypertension. Today blood pressure was acceptable. Home readings were acceptable in general. There were few low readings. She has been asymptomatic. I will obtain a 24 hour blood pressure monitoring. No changes were made in medications today. Encouraged her to stand low-sodium diet. She has a history of significant anemia I will recheck hemoglobin and iron stores. She returned to the office after the baseline workup is completed Orders: Orders Basic Metabolic Panel Today Robinson Rivera MD D50.9 - Iron deficiency anemia, unspecified, I10 - Essential (primary) hypertension UA and rflx microscopic Today Robinson Rivera MD D50.9 - Iron deficiency anemia, unspecified, I10 - Essential (primary) hypertension AMB 24 HR B/P Monitor PLACEMENT Today Robinson Rivera MD I10 - Essential (primary) hypertension Complete Blood Count Auto Diff Today Robinson Rivera MD D50.9 - Iron deficiency anemia, unspecified, I10 - Essential (primary) hypertension Creatinine Urine Today Robinson Rivera MD D50.9 - Iron deficiency anemia, unspecified, I10 - Essential (primary) hypertension Total Protein Urine Random Today Robinson Rivera MD D50.9 - Iron deficiency anemia, unspecified, I10 - Essential (primary) hypertension Medications: Changed From methylcellulose (laxative) (Citrucel) take it with full glass of water 1,000 mg (2 x 500 mg) PO DAILY 180 tabs 2RF K59.00 - Constipation, unspecified To methylcellulose (laxative) (Citrucel) take it with full glass of water 1,000 mg PO DAILY PRN K59.00 - Constipation, unspecified Gloriayoshi Baker, [employer] Coding Level of Care Code New Pt Level 4 (86297) Diagnoses Uncontrolled hypertension I10 Iron deficiency anemia, unspecified iron deficiency anemia type D50.9 Iron deficiency anemia type: unspecified iron deficiency
== END 2024-08-25 12:06 | disposition home or self-care (01) ==
PROVIDERS: PCP Nurse Practitioner Family; Referring Provider Internal Medicine; Visit Provider Internal Medicine Hypertension Specialist
DX: I10 Essential (primary) hypertension (principal); D50.9 Iron deficiency anemia, unspecified
CPT/HCPCS: 99204

== ENCOUNTER → 2024-08-25 11:30 | Outpatient (BNVA) | payer OTHER, SELFPAY | PROVIDERS: PCP Nurse Practitioner Family; Referring Provider Internal Medicine; Visit Provider Internal Medicine Hypertension Specialist ==

== ENCOUNTER 2024-08-25 12:30 | Outpatient (REF) | payer OTHER, SELFPAY ==
[2024-08-25 13:15] LABS: MANUAL DIFF FLAG NO
[2024-08-25 13:19] LABS: Basophils Percent Auto 0.4 % (0-2); Eosinophils Absolute Auto 0.2 X10*3/uL (0.0-0.4); Hematocrit 39.9 % (37.0-47.0); Hemoglobin 13.4 g/dl (12.0-16.0); Imm Gran Abs Auto 0.03 X10*3/uL (0.00-0.03); Imm Gran Pct Auto 0.3 % (0.0-0.4); Lymphocytes Absolute Auto 2.7 X10*3/uL (1.2-4.9); Lymphocytes Percent Auto 28.8 % (20-40); Mean Corpuscular HGB Conc 33.6 g/dl (31.0-35.0); Mean Corpuscular Hemoglobin 28.1 pg (27.0-33.0); Mean Corpuscular Volume 83.6 fL (80.0-98.0); Mean Platelet Volume 11.4 fL (9.4-12.3); Monocytes Absolute Auto 0.7 X10*3/uL (0.1-1.2); Monocytes Percent Auto 7.7 % (2-11); Neutrophils Absolute Auto 5.7 x10*3/uL (2.0-8.3); Neutrophils Percent Auto 60.8 % (45-73); Platelet Count 249 X10*3/uL (160-400); Red Blood Count 4.77 X10*6/uL (4.20-5.50); Red Cell Distribution Width 13.5 % (11.0-16.0); White Blood Count 9.4 X10*3/uL (4.8-10.8)
[2024-08-25 13:26] LABS: Anion Gap 15 (12-20); Blood Urea Nitrogen 23 mg/dL (9-16); Carbon Dioxide 22 mmol/L (22-29); Chloride 107 mmol/L (96-108); Estimated Glomerular Filt Rate > 60; Glucose Random 116 mg/dL (60-115); Potassium 4.5 mmol/L (3.3-5.1); Sodium 139 mmol/L (135-145)
[2024-08-25 13:43] LABS: Appearance Urine Clear; Color Urine Yellow; Glucose Urine UA Negative (Negative); Leukocyte Esterase Urine Trace (Negative); Nitrite Urine Negative (Negative); PH 5.5 (5.0-9.0); Specific Gravity - Urine <= 1.005 (1.005-1.025); UMIC TRIGGER UA YES; Urine Blood Negative (Negative); Urine Ketones Negative (Negative); Urine Protein Negative (Neg-Trace)
[2024-08-25 13:48] LABS: Creatinine Urine 24.02 mg/dL; Total Protein Urine Random < 7 mg/dL (<12)
[2024-08-25 13:51] LABS: Bacteria Urine 3+ (None Seen); Hyaline Casts Urine 0-2 /LPF (0-2); RBC Urine 0-2 /HPF (0-2); Squamous Epithelial Cell Urine 0-2 /HPF (0-2); WBC Urine 0-5 /HPF (0-5)
== END 2024-08-25 12:31 | disposition home or self-care (01) ==
LOC: HO.10HDL 12:30
PROVIDERS: Visit Provider Internal Medicine Hypertension Specialist
DX: I10 Essential (primary) hypertension (principal); D50.9 Iron deficiency anemia, unspecified
CPT/HCPCS: 36415; 80048; 81001; 82570; 84156; 85025

== ENCOUNTER → 2024-09-03 15:00 | Outpatient (BNVA) | payer OTHER, SELFPAY | PROVIDERS: PCP Nurse Practitioner Family; Visit Provider Internal Medicine Hypertension Specialist ==

== ENCOUNTER 2024-09-04 15:06 | Outpatient (AMB) | payer OTHER, SELFPAY ==
--- NOTE | 2024-09-04 15:05 | HO.NEPHOV ---
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: No Accompanied by: Self / Same As Patient Allergies penicillin V Allergy (Severe, Verified 09/04/24 15:08) Anaphylaxis amlodipine Allergy (Intermediate, Verified 09/04/24 15:08) welts on body meloxicam Allergy (Intermediate, Verified 09/04/24 15:08) Nausea, lightheaded REINALDO Inhibitors [REINALDO INHIBITORS] Allergy (Unknown, Verified 09/04/24 15:08) ALL SORTS OF DIFF RXNS hydrochlorothiazide Allergy (Unknown, Verified 09/04/24 15:08) dizziness Sulfa (Sulfonamide Antibiotics) [SULFA (SULFONAMIDE ANTIBIOTICS)] Allergy (Unknown, Verified 09/04/24 15:08) RASH,ITCHY lisinopril Adverse Reaction (Verified 09/04/24 15:08) Cough metformin Adverse Reaction (Verified 09/04/24 15:08) Stomach Upset Moexipril HCl Allergy (Unknown, Uncoded 03/18/24 14:47) Mouth, cheek & feet tingling. shaking, nausea Medication List - Last Reconciled 09/04/24 by Robinson Rivera MD atorvastatin 20 mg PO DAILY carvedilol 25 mg PO BID cyclobenzaprine 10 mg PO BEDTIME PRN dicyclomine 20 mg PO QID famotidine 20 mg PO DAILY PRN metformin ER 500 mg PO DAILY methylcellulose (laxative) (Citrucel) 1,000 mg PO DAILY PRN olmesartan 40 mg PO DAILY omeprazole 20 mg PO DAILY [Probiotic 1 Billion [place] Bounty 1 cap PO DAILY] HPI Comments Details: Matilda is a pleasant 64 year woman with a history of hypertension. She has had hypertension for almost 30 years. She was started various medications. There has been significant fluctuation of blood pressure and hence this referral. Currently she is on olmesartan 40 mg and carvedilol 25 mg b.i.d. She has been monitoring blood pressure at home. Most of the blood pressure readings are acceptable. Few readings were around 170/77 and there was a reading around 103/49. She has been asymptomatic. She underwent renal ultrasonogram and there was no evidence of renal artery stenosis by Doppler back in 2020. Recently diagnosed with diabetes mellitus and started on metformin. History of significant arthritis. For last few months she has been taking ibuprofen 2 tablets a day along with Tylenol. History of pancreatitis. History of significant iron deficiency anemia in 2020. Hemoglobin was as low as 6.8. Underwent endoscopy and colonoscopy. Not on any iron supplementation at present. [facility] Medical History IBS (irritable bowel syndrome) HLD (hyperlipidemia) HTN (hypertension) Iron (Fe) deficiency anemia Diverticulosis Surgical History History of esophagogastroduodenoscopy (EGD) Hx of colonoscopy Family History Father Cancer Sister Colon cancer Brother CAD (coronary artery disease) Social History Household Members: Spouse Housing: House Alcohol intake: never Patient Tobacco Use Status: Former Tobacco user service: No Current occupational status: employed Physical Exam Vital Signs: Last Vital Signs Pulse 70 09/04/24 15:06 BP 150/80 H 09/04/24 15:06 Pulse Ox 97 09/04/24 15:06 Oxygen Delivery Method Room Air 09/04/24 15:06 BMI result Body Mass Index 26.6 Results Reviewed Nephrology Results: Hgb 13.4 g/dl (12.0-16.0) 08/25/24 WBC 9.4 X10*3/uL (4.8-10.8) 08/25/24 Plt Count 249 X10*3/uL (160-400) 08/25/24 Sodium 139 mmol/L (135-145) 08/25/24 Potassium 4.5 mmol/L (3.3-5.1) 08/25/24 Chloride 107 mmol/L (96-108) 08/25/24 Carbon Dioxide 22 mmol/L (22-29) 08/25/24 BUN 23 mg/dL (9-16) H 08/25/24 Creatinine 0.91 mg/dL (0.5-1.4) 08/25/24 Calcium 10.0 mg/dL (8.4-10.2) 08/25/24 Urine Protein Negative mg/dL (Neg-Trace) 08/25/24 Urine Creatinine 24.02 mg/dL 08/25/24 Assessment & Plan Assessment & Plan (1) Uncontrolled hypertension: Code(s): I10 - Essential (primary) hypertension Category: Medical (2) Iron (Fe) deficiency anemia: Code(s): D50.9 - Iron deficiency anemia, unspecified Category: Medical Qualifiers: Iron deficiency anemia type: unspecified iron deficiency Qualified Code(s): D50.9 - Iron deficiency anemia, unspecified Plan [age] year woman with longstanding hypertension. Based on 24 hour blood pressure monitoring I would add Cardizem 60 mg q.p.m. Encouraged her to stand low-sodium diet. Medications: New diltiazem HCl ER 60 mg PO .every evening 30 caps 2RF Coding Level of Care Code Est Pt Level 4 (28506) Diagnoses Uncontrolled hypertension I10 Iron deficiency anemia, unspecified iron deficiency anemia type D50.9 Iron deficiency anemia type: unspecified iron deficiency
[2024-09-04 15:06] VITALS: BP 150/80; PULSE 70; O2SAT 97; BMI 26.6
== END 2024-09-04 15:30 | disposition home or self-care (01) ==
PROVIDERS: PCP Nurse Practitioner Family; Visit Provider Internal Medicine Hypertension Specialist
DX: I10 Essential (primary) hypertension (principal); D50.9 Iron deficiency anemia, unspecified
CPT/HCPCS: 93790; 99214

== ENCOUNTER → 2024-09-04 15:06 | Outpatient (BNVA) | payer OTHER, SELFPAY | PROVIDERS: PCP Nurse Practitioner Family; Visit Provider Internal Medicine Hypertension Specialist ==

== ENCOUNTER 2024-10-12 15:38 | Outpatient (AMB) | payer OTHER, SELFPAY ==
--- NOTE | 2024-10-12 15:41 | HO.NEPHOV_ITS ---
Vital Signs 10/12/24 15:42 Height 5 ft 6 in Weight 163 lb 4 oz BMI 26.3 BP 168/68 H Blood Pressure Location Rt brachial Position Sitting Pulse 74 Pulse Source Pulse Oximeter Pulse Oximetry (%) 97 Oxygen Delivery Method Room Air Intake Visit Reasons: Hypokalemia/ Conf Program Development Specialist Required: No Accompanied by: Self / Same As Patient Allergies penicillin V Allergy (Severe, Verified 10/12/24 15:42) Anaphylaxis amlodipine Allergy (Intermediate, Verified 10/12/24 15:42) welts on body meloxicam Allergy (Intermediate, Verified 10/12/24 15:42) Nausea, lightheaded REINALDO Inhibitors [REINALDO INHIBITORS] Allergy (Unknown, Verified 10/12/24 15:42) ALL SORTS OF DIFF RXNS hydrochlorothiazide Allergy (Unknown, Verified 10/12/24 15:42) dizziness Sulfa (Sulfonamide Antibiotics) [SULFA (SULFONAMIDE ANTIBIOTICS)] Allergy (Unknown, Verified 10/12/24 15:42) RASH,ITCHY lisinopril Adverse Reaction (Verified 10/12/24 15:42) Cough metformin Adverse Reaction (Verified 10/12/24 15:42) Stomach Upset Moexipril HCl Allergy (Unknown, Uncoded 03/18/24 14:47) Mouth, cheek & feet tingling. shaking, nausea Medication List - Last Reconciled 10/12/24 by Robinson Rivera MD atorvastatin 20 mg PO DAILY carvedilol 25 mg PO BID cyclobenzaprine 10 mg PO BEDTIME PRN dicyclomine 20 mg PO QID diltiazem HCl ER 60 mg PO .every evening famotidine 20 mg PO DAILY PRN metformin ER 500 mg PO DAILY methylcellulose (laxative) (Citrucel) 1,000 mg PO DAILY PRN olmesartan 40 mg PO DAILY omeprazole 20 mg PO DAILY [Probiotic 1 Billion [place]atures Bounty 1 cap PO DAILY] HPI Comments Details: Matilda is a pleasant 64 year woman with a history of hypertension. She has had hypertension for almost 30 years. She was started various medications. There has been significant fluctuation of blood pressure and hence this referral. Currently she is on olmesartan 40 mg and carvedilol 25 mg b.i.d. She has been monitoring blood pressure at home. Most of the blood pressure readings are acceptable. Few readings were around 170/77 and there was a reading around 103/49. She has been asymptomatic. She underwent renal ultrasonogram and there was no evidence of renal artery stenosis by Doppler back in 2020. Recently diagnosed with diabetes mellitus and started on metformin. History of significant arthritis. For last few months she has been taking ibuprofen 2 tablets a day along with Tylenol. History of pancreatitis. History of significant iron deficiency anemia in 2020. Hemoglobin was as low as 6.8. Underwent endoscopy and colonoscopy. Not on any iron supplementation at present. 10/12/24 Home BP is excellent with few low readings PFSH Medical History IBS (irritable bowel syndrome) HLD (hyperlipidemia) HTN (hypertension) Iron (Fe) deficiency anemia Diverticulosis Surgical History History of esophagogastroduodenoscopy (EGD) Hx of colonoscopy Family History Father Cancer Sister Colon cancer Brother CAD (coronary artery disease) Social History Household Members: Spouse Housing: House Alcohol intake: never Patient Tobacco Use Status: Former Tobacco user service: No Current occupational status: employed Physical Exam Vital Signs: Last Vital Signs Pulse 74 10/12/24 15:42 BP 168/68 H 10/12/24 15:42 Pulse Ox 97 10/12/24 15:42 Oxygen Delivery Method Room Air 10/12/24 15:42 BMI result Body Mass Index 26.3 Blood pressure is symmetrical in both upper extremities at 140/60. No orthostatic changes Const General: comfortable; No acute distress Orientation/consciousness: patient oriented x3 Eyes General: appearance normal, both eyes and all related structures Visual Pablo: normal visual pablo by confrontation Neck Neck: Yes supple and Yes no JVD Resp Effort & Inspection: normal respiratory effort and respiratory effort not decreased Auscultation: rhonchi Cardio Palpation: no palpable S3 and no palpable S4 Heart sounds: no rubs GI Inspection: Yes normal to inspection Palpation (GI): Soft to palpation Percussion: Yes normal to percussion Auscultation: normal bowel sounds General: Yes no CVA tenderness Back/Spine/Pelvis Back: no CVA tenderness Skin General skin exam: no petechiae and no purpura Neuro General: patient oriented x3 and no focal motor deficits Extrem General: No clubbing and No edema Results Reviewed Nephrology Results: Hgb 13.4 g/dl (12.0-16.0) 08/25/24 WBC 9.4 X10*3/uL (4.8-10.8) 08/25/24 Plt Count 249 X10*3/uL (160-400) 08/25/24 Sodium 139 mmol/L (135-145) 08/25/24 Potassium 4.5 mmol/L (3.3-5.1) 08/25/24 Chloride 107 mmol/L (96-108) 08/25/24 Carbon Dioxide 22 mmol/L (22-29) 08/25/24 BUN 23 mg/dL (9-16) H 08/25/24 Creatinine 0.91 mg/dL (0.5-1.4) 08/25/24 Calcium 10.0 mg/dL (8.4-10.2) 08/25/24 Urine Protein Negative mg/dL (Neg-Trace) 08/25/24 Urine Creatinine 24.02 mg/dL 08/25/24 Assessment & Plan Assessment & Plan (1) Uncontrolled hypertension: Code(s): I10 - Essential (primary) hypertension Category: Medical (2) Iron (Fe) deficiency anemia: Code(s): D50.9 - Iron deficiency anemia, unspecified Category: Medical Qualifiers: Iron deficiency anemia type: unspecified iron deficiency Qualified Code(s): D50.9 - Iron deficiency anemia, unspecified Plan [age] year woman with longstanding hypertension. Based on 24 hour blood pressure monitoring I added Cardizem 60 mg q.p.m. BP better controlled based on home readings Encouraged her to stay on low-sodium diet. NO changes today Coding Level of Care Code Est Pt Level 4 (58578) Diagnoses Uncontrolled hypertension I10 Iron deficiency anemia, unspecified iron deficiency anemia type D50.9 Iron deficiency anemia type: unspecified iron deficiency
[2024-10-12 15:42] VITALS: BP 168/68; PULSE 74; O2SAT 97; BMI 26.3
== END 2024-10-12 15:56 | disposition home or self-care (01) ==
PROVIDERS: PCP Nurse Practitioner Family; Visit Provider Internal Medicine Hypertension Specialist
DX: I10 Essential (primary) hypertension (principal); D50.9 Iron deficiency anemia, unspecified
CPT/HCPCS: 99214

== ENCOUNTER → 2024-10-12 15:38 | Outpatient (BNVA) | payer OTHER, SELFPAY | PROVIDERS: PCP Nurse Practitioner Family; Visit Provider Internal Medicine Hypertension Specialist ==

== ENCOUNTER 2024-11-27 15:31 | Outpatient (AMB) | payer OTHER, SELFPAY ==
[2024-11-27 15:35] VITALS: BP 164/80; PULSE 68; O2SAT 96; BMI 26.7
--- NOTE | 2024-11-27 15:35 | A.OFFVIS_ITS ---
Vital Signs 11/27/24 15:35 Height 5 ft 6 in Weight 165 lb 5.547 oz BMI 26.7 BP 164/80 H Blood Pressure Location Rt brachial Position Sitting Pulse 68 Pulse Source Pulse Oximeter Pulse Oximetry (%) 96 Oxygen Delivery Method Room Air Intake Visit Reasons: 2.5 months f/u Intake Note: ESTABLISHED PATIENT Reason; scheduled in office 2.5 mos FUV. Changes/concerns? No significant concerns Allergies penicillin V Allergy (Severe, Verified 11/27/24 15:37) Anaphylaxis amlodipine Allergy (Intermediate, Verified 11/27/24 15:37) welts on body meloxicam Allergy (Intermediate, Verified 11/27/24 15:37) Nausea, lightheaded REINALDO Inhibitors [REINALDO INHIBITORS] Allergy (Unknown, Verified 11/27/24 15:37) ALL SORTS OF DIFF RXNS hydrochlorothiazide Allergy (Unknown, Verified 11/27/24 15:37) dizziness Sulfa (Sulfonamide Antibiotics) [SULFA (SULFONAMIDE ANTIBIOTICS)] Allergy (Unknown, Verified 11/27/24 15:37) RASH,ITCHY lisinopril Adverse Reaction (Verified 11/27/24 15:37) Cough metformin Adverse Reaction (Verified 11/27/24 15:37) Stomach Upset Moexipril HCl Allergy (Unknown, Uncoded 03/18/24 14:47) Mouth, cheek & feet tingling. shaking, nausea HPI HPI 2.5 months f/u: Details: LAST VISIT: IBS (irritable bowel syndrome) Diverticulosis Postprandial diarrhea GERD (gastroesophageal reflux disease) Chronic pancreatitis Plan Continue PPI use daily. Avoid dietary triggers. Stressed the importance staying upright for minimum 3 hours after meals. Patient will try to stick more to low FODMAP diet. List of food recommended as well as list of food to avoid given to patient. Continue dicyclomine. Patient was also encouraged to take probiotics with fiber supplements. Long discussion with patient about diet changes. Avoiding fast food. Avoiding carbohydrates as much as possible and lactose. Follow-up in the office in 2 months, sooner on as needed basis. She is agreeable to this plan and verbalizes understanding of instructions. She was given the opportunity to ask questions and all questions answered. TODAY'S VISIT Patient is here today for follow-up. Patient reports that she has been doing better. Tried to figure out what to do so she does not have accidents at work. Patient would have frequent postprandial loose stools. Going under a lot of stress at work, however she reports that is getting better. She is taking loperamide in the morning and her symptoms are suppressed. Patient is only taking the loperamide in the morning and not on the weekend. Patient denies any melena, hematochezia, unintentional weight loss or ribbon like stools. Patient denies any dyspepsia, dysphagia or odynophagia. Currently she is taking omeprazole 20 mg in the morning. Patient reports that she was referred to drophammer operator to adjust her medication for hypertension. Patient continues to have trouble with her hence and her wrist. Inflammation that wakes her up in the middle of the night. Patient followed up with manager steel few years ago, however was told that there is nothing that they can do. Patient would not mind to get a 2nd opinion. Patient reports that she has to take a lot of Tylenol which sometimes does not help. Occasionally takes Motrin. [facility] Medical History IBS (irritable bowel syndrome) HLD (hyperlipidemia) HTN (hypertension) Iron (Fe) deficiency anemia Diverticulosis Surgical History History of esophagogastroduodenoscopy (EGD) Hx of colonoscopy Family History Father Cancer Sister Colon cancer Brother CAD (coronary artery disease) Social History Household Members: Spouse Housing: House Alcohol intake: never Patient Tobacco Use Status: Former Tobacco user service: No Current occupational status: employed Review of Systems Const Denies weight gain and Denies weight loss ENT Reports no additional complaints, Denies dysphagia and Denies odynophagia Card Reports no additional complaints Resp Reports no additional complaints GI Denies abdominal pain, Denies belching, Denies melena, Reports bloating, Denies change in bowel habits, Denies dysphagia, Denies excessive flatus, Denies dyspepsia, Reports heartburn, Reports diarrhea, Denies loose stools, Denies nausea, Denies odynophagia and Denies vomiting Reports no additional complaints Musc Reports no additional complaints Neuro Reports no additional complaints Psych Reports no additional complaints Endo Reports no additional complaints Physical Exam Vital Signs: Last Vital Signs Pulse 68 11/27/24 15:35 BP 164/80 H 11/27/24 15:35 Pulse Ox 96 11/27/24 15:35 Oxygen Delivery Method Room Air 11/27/24 15:35 BMI result Body Mass Index 26.7 Const General: healthy appearing, no acute distress and well developed Nutritional Appearance: well nourished Orientation/consciousness: patient oriented x3 Resp Effort & Inspection: normal respiratory effort, able to speak in complete sentences, no tracheal deviation and symmetric chest movement Auscultation: clear to auscultation bilaterally Cardio Rate: regular rate GI Inspection: Yes normal to inspection, No distended and Yes obesity Palpation (GI): Soft to palpation, not firm, nontender and No hepatosplenomegaly present Auscultation: normal bowel sounds General: Yes no CVA tenderness Back/Spine/Pelvis Back: no CVA tenderness Skin General skin exam: elasticity normal, turgor normal and dry skin Neuro General: patient oriented x3 Psych Appearance: grossly normal Mental Status: mental status grossly normal Assessment & Plan Assessment & Plan (1) IBS (irritable bowel syndrome): Code(s): K58.9 - Irritable bowel syndrome, unspecified Category: Medical Qualifiers: Irritable bowel syndrome type: with both diarrhea and constipation Qualified Code(s): K58.2 - Mixed irritable bowel syndrome (2) Diverticulosis: Code(s): K57.90 - Diverticulosis of intestine, part unspecified, without perforation or abscess without bleeding (3) Postprandial diarrhea: Code(s): K52.9 - Noninfective gastroenteritis and colitis, unspecified (4) GERD (gastroesophageal reflux disease): Code(s): K21.9 - Gastro-esophageal reflux disease without esophagitis (5) Chronic pancreatitis: Code(s): K86.1 - Other chronic pancreatitis (6) Rheumatoid arthritis: Code(s): M06.9 - Rheumatoid arthritis, unspecified Qualifiers: Rheumatoid arthritis location: hand Rheumatoid factor presence: unspecified presence Laterality: bilateral Qualified Code(s): M06.9 - Rheumatoid arthritis, unspecified Plan Patient will continue current treatment with PPI. Avoid dietary triggers and late night snacking. Continue loperamide in the morning as needed to control her bowel movements. Increase fiber intake. Patient can also take taurousodeoxycholic acid (TUDCA) as this can help her. Patient can try it for month or 2. However if she will continue to have diarrhea or her diarrhea gets worse patient is to stop using it. Referral sent to rheumatology for 2nd opinion. Orders: Referrals Rheumatology Referral M06.9 - Rheumatoid arthritis, unspecified Coding Level of Care Code Est Pt Level 4 (53133) Diagnoses Irritable bowel syndrome with both constipation and diarrhea K58.2 Irritable bowel syndrome type: with both diarrhea and constipation Diverticulosis K57.90 Postprandial diarrhea K52.9 GERD (gastroesophageal reflux disease) K21.9 Chronic pancreatitis K86.1 Rheumatoid arthritis involving both hands, unspecified whether rheumatoid factor present M06.9 Rheumatoid arthritis location: hand Rheumatoid factor presence: unspecified presence Laterality: bilateral Time Spent (min) 35 Comment 25 minutes spent with patient and additional 10 minutes spent reviewing her records
== END 2024-11-27 16:22 | disposition home or self-care (01) ==
PROVIDERS: PCP Nurse Practitioner Family; Visit Provider Nurse Practitioner Family
DX: K58.2 Mixed irritable bowel syndrome (principal); K57.90 Diverticulosis of intestine, part unspecified, without perforation or abscess without bleeding; K21.9 Gastro-esophageal reflux disease without esophagitis; K86.1 Other chronic pancreatitis; M06.9 Rheumatoid arthritis, unspecified
CPT/HCPCS: 99214

== ENCOUNTER 2025-01-18 13:20 | Outpatient (AMB) | payer OTHER, SELFPAY ==
--- NOTE | 2025-01-18 13:28 | HO.NEPHOV_ITS ---
Vital Signs 01/18/25 13:29 Height 5 ft 6 in Weight 167 lb BMI 27.0 BP 160/62 H Blood Pressure Location Rt brachial Position Sitting Pulse 71 Pulse Source Pulse Oximeter Pulse Oximetry (%) 98 Oxygen Delivery Method Room Air Intake Visit Reasons: Hypokalemia/ Conf Meat Hostess Required: No Accompanied by: Self / Same As Patient Allergies penicillin V Allergy (Severe, Verified 01/18/25 13:30) Anaphylaxis amlodipine Allergy (Intermediate, Verified 01/18/25 13:30) welts on body meloxicam Allergy (Intermediate, Verified 01/18/25 13:30) Nausea, lightheaded REINALDO Inhibitors [REINALDO INHIBITORS] Allergy (Unknown, Verified 01/18/25 13:30) ALL SORTS OF DIFF RXNS hydrochlorothiazide Allergy (Unknown, Verified 01/18/25 13:30) dizziness Sulfa (Sulfonamide Antibiotics) [SULFA (SULFONAMIDE ANTIBIOTICS)] Allergy (Unknown, Verified 01/18/25 13:30) RASH,ITCHY lisinopril Adverse Reaction (Verified 01/18/25 13:30) Cough metformin Adverse Reaction (Verified 01/18/25 13:30) Stomach Upset Moexipril HCl Allergy (Unknown, Uncoded 03/18/24 14:47) Mouth, cheek & feet tingling. shaking, nausea Medication List - Last Reconciled 01/18/25 by Robinson Rivera MD atorvastatin 20 mg PO DAILY carvedilol 25 mg PO BID cyclobenzaprine 10 mg PO BEDTIME PRN dicyclomine 20 mg PO QID diltiazem HCl ER 60 mg PO QPM famotidine 20 mg PO DAILY PRN metformin ER 500 mg PO DAILY methylcellulose (laxative) (Citrucel) 1,000 mg PO DAILY PRN olmesartan 40 mg PO DAILY omeprazole 20 mg PO DAILY [Probiotic 1 B[place]ounty 1 cap PO DAILY] HPI Comments Details: Matilda is a pleasant 64 year woman with a history of hypertension. She has had hypertension for almost 30 years. She was started various medications. There has been significant fluctuation of blood pressure and hence this referral. Currently she is on olmesartan 40 mg and carvedilol 25 mg b.i.d. She has been monitoring blood pressure at home. Most of the blood pressure readings are acceptable. Few readings were around 170/77 and there was a reading around 103/49. She has been asymptomatic. She underwent renal ultrasonogram and there was no evidence of renal artery stenosis by Doppler back in 2020. Recently diagnosed with diabetes mellitus and started on metformin. History of significant arthritis. For last few months she has been taking ibuprofen 2 tablets a day along with Tylenol. History of pancreatitis. History of significant iron deficiency anemia in 2020. Hemoglobin was as low as 6.8. Underwent endoscopy and colonoscopy. Not on any iron supplementation at present. 10/12/24 Home BP is excellent with few low readings [facility] Medical History IBS (irritable bowel syndrome) HLD (hyperlipidemia) HTN (hypertension) Iron (Fe) deficiency anemia Diverticulosis Surgical History History of esophagogastroduodenoscopy (EGD) Hx of colonoscopy Family History Father Cancer Sister Colon cancer Brother CAD (coronary artery disease) Social History Household Members: Spouse Housing: House Alcohol intake: never Patient Tobacco Use Status: Former Tobacco user service: No Current occupational status: employed Physical Exam Vital Signs: Last Vital Signs Pulse 71 01/18/25 13:29 BP 160/62 H 01/18/25 13:29 Pulse Ox 98 01/18/25 13:29 Oxygen Delivery Method Room Air 01/18/25 13:29 BMI result Body Mass Index 27.0 Blood pressure is symmetrical in both upper extremities at 140/60. No orthostatic changes Const General: comfortable; No acute distress Orientation/consciousness: patient oriented x3 Eyes General: appearance normal, both eyes and all related structures Visual Pablo: normal visual pablo by confrontation Neck Neck: Yes supple and Yes no JVD Resp Effort & Inspection: normal respiratory effort and respiratory effort not decreased Auscultation: rhonchi Cardio Palpation: no palpable S3 and no palpable S4 Heart sounds: no rubs GI Inspection: Yes normal to inspection Palpation (GI): Soft to palpation Percussion: Yes normal to percussion Auscultation: normal bowel sounds General: Yes no CVA tenderness Back/Spine/Pelvis Back: no CVA tenderness Skin General skin exam: no petechiae and no purpura Neuro General: patient oriented x3 and no focal motor deficits Extrem General: No clubbing and No edema Results Reviewed Nephrology Results: Hgb 13.4 g/dl (12.0-16.0) 08/25/24 WBC 9.4 X10*3/uL (4.8-10.8) 08/25/24 Plt Count 249 X10*3/uL (160-400) 08/25/24 Sodium 139 mmol/L (135-145) 08/25/24 Potassium 4.5 mmol/L (3.3-5.1) 08/25/24 Chloride 107 mmol/L (96-108) 08/25/24 Carbon Dioxide 22 mmol/L (22-29) 08/25/24 BUN 23 mg/dL (9-16) H 08/25/24 Creatinine 0.91 mg/dL (0.5-1.4) 08/25/24 Calcium 10.0 mg/dL (8.4-10.2) 08/25/24 Urine Protein Negative mg/dL (Neg-Trace) 08/25/24 Urine Creatinine 24.02 mg/dL 08/25/24 Assessment & Plan Assessment & Plan (1) Uncontrolled hypertension: Code(s): I10 - Essential (primary) hypertension Category: Medical (2) Iron (Fe) deficiency anemia: Code(s): D50.9 - Iron deficiency anemia, unspecified Category: Medical Qualifiers: Iron deficiency anemia type: unspecified iron deficiency Qualified Code(s): D50.9 - Iron deficiency anemia, unspecified Plan [age] year woman with longstanding hypertension. Based on 24 hour blood pressure monitoring I added Cardizem 60 mg q.p.m. BP better controlled based on home readings Encouraged her to stay on low-sodium diet. No changes today Coding Level of Care Code Est Pt Level 4 (64039) Diagnoses Uncontrolled hypertension I10 Iron deficiency anemia, unspecified iron deficiency anemia type D50.9 Iron deficiency anemia type: unspecified iron deficiency
[2025-01-18 13:29] VITALS: BP 160/62; PULSE 71; O2SAT 98; BMI 27.0
--- OUTSIDE RECORDS SUMMARY | 2025-01-18 15:16 | XMS_ITS | Continuity of Care Document ---
Author Organization [facility] Kade Duy Address [address] [place] [address]- Care Team Providers Care Component Lab Tech Name Role Phone Mak DEWEY, Rosette Tinajero Primary Care Physician [id number] Date(s): 01/01/25 - 01/08/25 [facility] Adult [address] [place] [address]- Encounter Diagnosis Hyperlipemia(Discharge Diagnosis) - 01/01/25 HTN (hypertension)(Discharge Diagnosis) - 01/01/25 Diabetes mellitus, type II(Discharge Diagnosis) - 01/01/25 Osteoarthritis(Discharge Diagnosis) - 01/01/25 Attending Physician: Rosette Corado NP Referring Physician: Kelechi Mittal MD Encounter Type: Office Visit Allergies, Adverse Reactions, Alerts Substance Criticality Severity Reaction Reaction Severity Status penicillin swelling rash throat closes Active sulfADIAZINE Active hydrochlorothiazide -triamterene light headed tingling face hands feet Active moexipril tingling around mouth tongue cheeks feet toes heart racing nausea Active Norvasc stomach pains a nd nausea Active meloxicam nausea lightheaded A ctive amLODIPine Unable to assess criticality Unknown nausea diarrhea Active Immunizations Given and Recorded Vaccine Date Status Refusal Reason [id number] 12y+ bivalent booster vax 09/19/22 Given SARS-CoV-2 (COVID-19) mRNA BNT-162b2 vac 11/29/21 Recorded SARS-CoV-2 (COVID-19) mRNA BNT-162b2 vac 04/11/21 Recorded SARS-CoV-2 (COVID-19) mRNA BNT-162b2 vac 03/21/21 Recorded tetanus/diphtheria/pertussis, acel(Tdap) 11/21/11 Recorded tetanus-diphtheria toxoids (Td) 07/05/05 Recorded Medications atorvastatin 20 mg oral tablet 1 tablet, By Mouth, Daily, # 90 tablet, 3 Refills, Maintenance, 06/11/24 7:00:00 AM EDT, [facility], 167, cm, 04/17/24 8:24:00 EDT, Height Start Date: 06/11/24 Status: Ordered Quantity: 90.0 Unit: tablet Repeat number: 4 carvedilol 25 mg oral tablet 1, tablet, By Mouth, 2 times a day, # 180 tablet, Refills 1, Maintenance, 11/10/24 10:28:00 AM EST,Route to Pharmacy Electronically, [facility], 167, cm, 07/01/24 9:17:00 EDT, Height Start Date: 11/10/24 Status: Ordered Quantity: 180.0 Unit: tablet Repeat number: 1 CeleBREX 100 mg oral capsule 1 capsule = 100 mg, By Mouth, 2 times a day, # 60 capsule, 0 Refills, Maintenance, 01/01/25 9:23:00 AM EST, [facility], Partial fill upon patient request if the prescription is for a schedule II opioid drug., 167, cm, 01/01/25 8:45:00 EST, Height Start Date: 01/01/25 Status: Ordered Quantity: 60.0 Unit: capsule Repeat number: 1 cyclobenzaprine 5 mg oral tablet 1 tablet = 5 mg, By Mouth, Daily, for 30 days, # 30 tablet, 0 Refills, Acute 01/31/25 9:14:00 AM EDT,01/01/25 9:14:00 AM EST, [facility], Partial fill upon patient request if the prescriptionis for a schedule II opioid drug., 167, cm, 01/01/25 8:45:00 EST, Height Start Date: 01/01/25 Stop Date: 01/31/25 Status: Ordered Quantity: 30.0 Unit: tablet Repeat number: 1 dicyclomine 20 mg oral tablet 1 tablet = 20 mg, By Mouth, 4 times a day, # 120 tablet, 1 Refills, Maintenance, 05/29/24 10:47:00 AMEDT, Tablet, [facility], Partial fill upon patient request if the prescription is for a schedule II opioid drug., 167, cm, 04/17/24 8:24:00 EDT, Height Start Date: 05/29/24 Status: Ordered Quantity: 120.0 Unit: tablet Repeat number: 2 dilTIAZem 60 mg/12 hours oral capsule, extended release 1 capsule = 60 mg, By Mouth, Daily at bedtime, 0 Refills, Maintenance, 01/01/25 9:10:00 AM EST, Partial fill upon patient request if the prescription is for a schedule II opioid drug. Start Date: 01/01/25 Status: Ordered Repeat number: 1 famotidine 20 mg oral tablet 20 mg, 1, tablet, By Mouth, Daily, # 30 tablet, Refills 0, Tot. Refills 0, Maintenance, 06/03/23 3:34:00 PM EDT, Route to Pharmacy Electronically, [facility], Partial fill upon patient request if the prescription is for a schedule II opioid drug., 167, cm, 06/03/23 15:02:00 EDT, Height Start Date: 06/03/23 Status: Ordered Quantity: 30.0 Unit: tablet Repeat number: 1 MetFORMIN (Eqv-Glucophage XR) 500 mg oral tablet, extended release 1 tablet, By Mouth, Daily, # 30 tablet, 5 Refills, Maintenance, 09/23/24 1:13:00 PM EDT, [facility], 167, cm, 07/01/24 9:17:00 EDT, Height Start Date: 09/23/24 Status: Ordered Quantity: 30.0 Unit: tablet Repeat number: 1 olmesartan 40 mg oral tablet 1 tablet = 40 mg, By Mouth, Daily, # 90 tablet, 2 Refills, Maintenance, 05/29/24 10:48:00 AM EDT, [facility], Partial fill upon patient request if the prescription is for a schedule II opioid drug., 167, cm, 04/17/24 8:24:00 EDT, Height Start Date: 05/29/24 Stop Date: 02/23/25 Status: Ordered Quantity: 90.0 Unit: tablet Repeat number: 3 Indication: Essential (primary) hypertension omeprazole 20 mg oral delayed release tablet 1 tablet, By Mouth, Daily, # 30 tablet, 0 Refills, Maintenance, 07/04/23 10:12:00 AM EDT, [facility], 167, cm, 06/03/23 15:02:00 EDT, Height Start Date: 07/04/23 Status: Ordered Quantity: 30.0 Unit: tablet Repeat number: 1 Problem List Condition Confirmation Course Effective Dates Status Health Status Informant Elevated alkaline phosphatase level Confirmed Active Anemia Confirmed Active Vitamin B12 deficiency Confirmed Active Family history of colon cancer 1 Confirmed Active Chronic GERD Confirmed Active HTN (hypertension) Confirmed Active Hypertriglyceridemia Confirmed Active Hypoglycemia Confirmed Active IBS (irritable bowel syndrome) Confirmed Active Hyperlipemia Confirmed Active Osteoarthritis 2 Confirmed Active Diabetes mellitus, type II Confirmed Active 1Sister of colon cancer 2spine and hands joint affected Diagnosis Diagnosis Type Effective Dates Health Status Clinical Service Informant Hyperlipemia Discharge Diagnosis 01/01/25 HTN (hypertension) Discharge Diagnosis 01/01/25 Diabetes mellitus, type II Discharge Diagnosis 01/01/25 Osteoarthritis Discharge Diagnosis 01/01/25 Vital Signs Most recent to oldest [Reference Range]: 1 Height 167 cm (01/01/25 8:45 AM) Weight 75.1 kg (01/01/25 8:45 AM) Oxygen Saturation [94-100 %] 98 % (01/01/25 8:45 AM) Pulse Rate [55-90 bpm] 64 bpm (01/01/25 8:45 AM) Body Mass Index [18.5-24.99 kg/m2] 26.93 kg/m2 *H* (01/01/25 8:45 AM) Blood Pressure [90-138/55-84 mm Hg] 138/ 67mm Hg (01/01/25 8:45 AM) Blood pressure sites Arm, left (01/01/25 8:45 AM) Weight Obtained Via Standing scale (01/01/25 8:45 AM) Social History Social History Type Response Smoking Status Former smoker, quit more than 30 days ago; Other: Quit 25 yeard ago; entered on: 11/22/21 Sex Sex Representation Female (finding) Patient Care team information Care Team Personnel Name: Rosette Corado NP Position: S PCO Associate Professional Member Role: PCP Address: [address] [place] [address]- Telecom: Care Team Related Persons Name: LINO GUERREROS Insurance Providers Guarantor name: ZAK GUERRERO [employer] Information #: 2 Payer: SELF PAY INSURANCE Member Number: NA Policy Number: NA Group Number: FABIAN Health Plan Information #: 1 Payer: CIGNA HMO POS Member Number: [id number] Policy Number: FABIAN Group Number: FABIAN Health Plan Information #: 3 Payer: [employer] NO REF Member Number: [id number] Policy Number: NA Group Number: [id number]
--- OUTSIDE RECORDS SUMMARY | 2025-01-18 15:16 | XMS_ITS | Clinical Summary ---
Author Organization [facility] Address [address] [place] [address] Care Team Providers Care Lmft Name Role Phone Unavailable Primary Care Provider Unavailabl e Surgical History Surgery Date Site/Laterality Comments OTHER SURGICAL HISTORY PROCEDURE: COLONOSCOPY LESION REMOVAL; COMMENT: march 2015 through , no polyps Medical History Medical History Date Comments Uterine fibroid 03/26/2017 DX:Uterine fibro id; COMMENT: Pelvis US 10/02/2016 Herniated cervical disc 03/26/2017 DX:Herni ated cervical disc; COMMENT: C - 6. Dr Akosua Bynum Essential hypertension 02/20/2017 DX:Essent ial hypertension Hyperlipidemia 02/20/2017 DX:Hyperlipidemi a Postmenopausal bleeding DX:Postm enopausal bleeding; COMMENT: H/o Uterine fibroids History of tobacco abuse DX:Hist ory of tobacco abuse; COMMENT: 10 pk years, quit 2002 Hot flashes due to menopause 01/24/2018 DX: Hot flashes due to menopause Hot flashes due to menopause 01/24/2018 DX: Hot flashes due to menopause; COMMENT: On paxil Pilar cyst 10/10/2017 DX:Pilar cyst; C OMMENT: S/p removal 2016 Irritable bowel syndrome (IBS) 04/14/2018 D X:Irritable bowel syndrome (IBS); COMMENT: With diarrhea follows with GI on dicycomine Depression 12/04/2018 DX:Depression Family History Medical History Relation Name Comments Coronary artery disease Brother Other: mesothelioma Father Hypertension Mother OA, Diabetes Coronary artery disease Sister 1 Colon cancer Sister 2 Other: rectal ca Sister 3 Breast cancer Neg Hx Relation Name Status Comments Brother Father Mother Sister 1 Sister 2 Sister 3 Social History Tobacco Use Types Packs/Day Years Used Date Smoking Tobacco: Former Smokeless Tobacco: Never Alcohol Use Standard Drinks/Week Comments No 0 (1 standard drink = 0.6 oz pur e alcohol) Comments Unknown Sex and Gender Information Value Date Recorded Sex Assigned at Not on file Legal Sex Female 8:26 AM EST Gender Identity Not on file Sexual Orientation Not on file Obstetrics History Plan of Treatment Health Maintenance Due Date Last Done Comments Pneumococcal Vaccine: 50+ Years (1 of 1 - PCV) 2012 Zoster Vaccines (1 of 2) 2012 Cervical Cancer Screening: Pap Smear 04/08/2021 04/08/2018 DTaP,Tdap,and Td Vaccines (3 - Td or Tdap) 11/21/2021 11/21/2011, 07/05/2005 Cholesterol Screening (Lipid Panel) 10/28/2022 Colorectal Cancer Screening: Colonoscopy 10/28/2022 Depression Screening 10/28/2022 HIV Screening 10/28/2022 Hepatitis C Screening 10/28/2022 Social Influencers of Health Screening 10/28/2022 Hypertension/CHF/CAD Annual BMP Blood Test 11/10/2022 Breast Cancer Screening 11/29/2022 11/29/19 21, 06/11/2019, 06/04/2018, Additional history exists COVID-19 Vaccine ( season) 2024 Influenza Vaccine (#1) 2024 RSV Immunization Patients 60+ Years Old (1 - 1-dose 75+ series) 2037 HIB Vaccines Aged Out No longer eligi ble based on patient's age to complete this topic HPV Vaccines Aged Out No longer eligi ble based on patient's age to complete this topic Hepatitis A Vaccines Aged Out No long er eligible based on patient's age to complete this topic Hepatitis B Vaccines Aged Out No long er eligible based on patient's age to complete this topic IPV Vaccines Aged Out No longer eligi ble based on patient's age to complete this topic MMR Vaccines Aged Out No longer eligi ble based on patient's age to complete this topic Meningococcal ACWY Vaccine Aged Out N o longer eligible based on patient's age to complete this topic Meningococcal B Vacine Aged Out No lo nger eligible based on patient's age to complete this topic Pneumococcal Vaccine: Pediatrics (0 to 5 Years) and At-Risk Patients (6 to 64 Years) Aged Out No longer eligible based on patient's age to complete this topic RSV Immunization Patients Under 20 months Aged Out No longer eligible based on patient's age to complete this topic Varicella Vaccines Aged Out No longer eligible based on patient's age to complete this topic Procedures Procedure Name Priority Date/Time Associated Diagnosis Comments SCR MAMMO BI INCL CAD Routine 11/29/2020 1:23 PM EST Encounter for screening mammogram for malignant neoplasm of breast PAP SMEAR Routine 04/08/2018 from Last 3 Months or Most Recently Relevant to Health Maintenance Results * SCR MAMMO BI INCL CAD (11/29/2020 1:23 PM EST) Anatomical Region Laterality Modality Radiographic Jemima ging 11/24/2020 3:26 PM EST Narrative 11/30/2020 8:38 AM EST This is a summary report. The complete report is available in the patient's medical record. If you cannot access the medical record, please contact the sending organization for a detailed fax or copy. BILATERAL 2D DIGITAL SCREENING MAMMOGRAM History: Routine screening. ??No current breast complaints. ??No family history of breast cancer Comparison: Multiple priors dating back to 02/01/2014 Technique: Bilateral full-field digital mammography was performed using standard CC and MLO projections CAD was used to evaluate this mammogram. Findings: Density: There are scattered areas of fibroglandular density-B RIGHT: No suspicious masses, groups of microcalcification or areas of architectural distortion identified. Stable typically benign parenchymal asymmetries LEFT: No suspicious masses, groups of microcalcifications or areas of architectural distortion identified. Stable typically benign parenchymal asymmetries IMPRESSION: : 1. ??No mammographic evidence of malignancy. BI-RADS Category 2 benign findings Recommendation: Routine annual screening mammography is recommended Procedure Note Florencio Carrera MD - 11/13/2022 This is a summary report. The complete report is available in thepatient's medical record. If you cannot access the medical record, pleasecontact the sending organization for a detailed fax or copy. BILATERAL 2D DIGITAL SCREENING MAMMOGRAM History: Routine screening. No current breast complaints. No familyhistory of breast cancer Comparison: Multiple priors dating back to 02/01/2014 Technique: Bilateral full-field digital mammography was performed usingstandard CC and MLO projections CAD was used to evaluate this mammogram. Findings: Density: There are scattered areas of fibroglandular density-B RIGHT: No suspicious masses, groups of microcalcification or areas ofarchitectural distortion identified. Stable typically benign parenchymalasymmetries LEFT: No suspicious masses, groups of microcalcifications or areas ofarchitectural distortion identified. Stable typically benign parenchymalasymmetries IMPRESSION: : 1. No mammographic evidence of malignancy. BI-RADS Category 2 benign findings Recommendation: Routine annual screening mammography is recommended us Fidelia Victoria MD IMG XR PROCEDURES Final Resu lt * Pap smear (04/08/2018) 04/08/2018 Narrative HISTORICAL TESTING LAB RESULTING AGENCY - 04/10/2018 5:00 PM EDT [id number] THINPREP PAP, IMAGED: NEGATIVE FOR SQUAMOUS INTRAEPITHELIAL LESION AND MALIGNANCY ??. RESULT OF APTIMA HIGH RISK HPV ASSAY: ? NEGATIVE ?? (SEROTYPES 16,18,31,33,35,39,45,51,52,56,58,59,66,68) MANNY CASTRO, MONSE(ASCP) (CASE ELECTRONICALLY SIGNED 04 10 2018) ADEQUACY: SATISFACTORY. ENDOCERVICAL/TRANSFORMATION ZONE COMPONENT PRESENT. SOURCE: THINPREP PAP HPV ANY DX: ??REFLEX 16 AND 18, CERVICAL, IMAGED: CLINICAL INFORMATION: HPV ANY DIAGNOSIS. Z12.4, Z01.419, MENOPAUSE, PAP HX: NEGATIVE us Marta Carrion MD LAB CYTOLOGY ORDERABLES Final Result HISTORICAL TESTING LAB RESULTING AGENCY from Last 3 Months or Most Recently Relevant to Health Maintenance
== END 2025-01-18 13:47 | disposition home or self-care (01) ==
PROVIDERS: PCP Nurse Practitioner Family; Visit Provider Internal Medicine Hypertension Specialist
DX: I10 Essential (primary) hypertension (principal); D50.9 Iron deficiency anemia, unspecified
CPT/HCPCS: 99214

== ENCOUNTER 2025-06-01 10:42 | Outpatient (AMB) | payer OTHER, SELFPAY ==
[2025-06-01 10:45] VITALS: BP 142/72; PULSE 64; O2SAT 98; BMI 27.2
--- NOTE | 2025-06-01 10:45 | A.OFFVIS_ITS ---
Vital Signs 06/01/25 10:45 Height 5 ft 6 in Weight 168 lb 10.458 oz BMI 27.2 BP 142/72 H Blood Pressure Location Lt brachial Position Sitting Pulse 64 Pulse Source Pulse Oximeter Pulse Oximetry (%) 98 Oxygen Delivery Method Room Air Intake Visit Reasons: Rheumatoid arthritis/New Patient Intake Note: Patient is a new patient, internally referred by Gloria Baker from [facility] for RA. Patient complains of left finger/ knuckle/ wrist pain since September. Allergies penicillin V Allergy (Severe, Verified 01/18/25 13:30) Anaphylaxis amlodipine Allergy (Intermediate, Verified 01/18/25 13:30) welts on body meloxicam Allergy (Intermediate, Verified 01/18/25 13:30) Nausea, lightheaded REINALDO Inhibitors (REINALDO INHIBITORS) Allergy (Unknown, Verified 01/18/25 13:30) ALL SORTS OF DIFF RXNS hydrochlorothiazide Allergy (Unknown, Verified 01/18/25 13:30) dizziness Sulfa (Sulfonamide Antibiotics) (SULFA (SULFONAMIDE ANTIBIOTICS)) Allergy (Unknown, Verified 01/18/25 13:30) RASH,ITCHY celecoxib Adverse Reaction (Unknown, Verified 06/01/25 10:52) flu-like symptoms lisinopril Adverse Reaction (Verified 01/18/25 13:30) Cough metformin Adverse Reaction (Verified 01/18/25 13:30) Stomach Upset Moexipril HCl Allergy (Unknown, Uncoded 03/18/24 14:47) Mouth, cheek & feet tingling. shaking, nausea Medication List - Last Reconciled 06/01/25 by Ella Dominguez MD atorvastatin 20 mg PO DAILY carvedilol 25 mg PO BID cholecalciferol (vitamin D3) 25 mcg PO DAILY cyclobenzaprine 10 mg PO BEDTIME PRN dicyclomine 20 mg PO QID diltiazem HCl ER 60 mg PO QPM famotidine 20 mg PO DAILY PRN metformin ER 500 mg PO DAILY methylcellulose (laxative) (Citrucel) 1,000 mg PO DAILY PRN olmesartan 40 mg PO DAILY omeprazole 20 mg PO DAILY [Probiotic 1 Billion Natures Bounty 1 cap PO DAILY] HPI Comments Details: Patient is a 65-year-old female with hyperlipidemia, GERD, hypertension, IBS and diabetes here today for evaluation of hand pain. Patient has been having polyarticular joint pain for the past 20-25 years. Has seen rheumatology in the past and was told she has polyarticular OA and there is nothing that can be done. She currently takes Tylenol for the pain without much relief. Main complaints are hands and back. Pain sometimes wakes her up out of bed with throbbing pain to her hands No known family history of OA PFSH Medical History IBS (irritable bowel syndrome) HLD (hyperlipidemia) HTN (hypertension) Iron (Fe) deficiency anemia Diverticulosis Surgical History History of esophagogastroduodenoscopy (EGD) Hx of colonoscopy Family History Father Cancer Sister Colon cancer Brother CAD (coronary artery disease) Social History Household Members: Spouse Housing: House Alcohol intake: never Patient Tobacco Use Status: Former Tobacco user service: No Current occupational status: employed Review of Systems Const Details: Review of Systems Constitutional: Denies fever, chills, weight loss ENT: Denies vision changes, eye pain or eye redness, dental caries, dry mouth GI: Denies nausea, vomiting, diarrhea, abdominal pain, change in BM Pulm: Denies SOB, STARKEY, hemoptysis, wheezing Cards: Denies chest pain, palpitations Skin: Denies Raynaud's, rash, nail changes, photosensitivity, AIR SURVEILLANCE OPERATOR: Denies headaches, weakness, paresthesias, recurrent falls MSK: as per HPI All other systems reviewed and are unremarkable except noted above Physical Exam Vital Signs: Last Vital Signs Pulse 64 06/01/25 10:45 BP 142/72 H 06/01/25 10:45 Pulse Ox 98 06/01/25 10:45 Oxygen Delivery Method Room Air 06/01/25 10:45 BMI result Body Mass Index 27.2 Vital signs reviewed Physical Examination CONSTITUITIONAL Patient alert and cooperative. Well appearing and in no apparent painful distress HEENT Conjunctiva and sclera clear. No lymphadenopathy. MSK Hands * Bilateral prominent herbedens and bouchards nodes with scattered TTP over the bony prominences Wrists * Right Wrist: Full ROM. 70 degrees of wrist flexion, 80 degrees of wrist extension. No swelling or TTP * Left Wrist: Full ROM. 70 degrees of wrist flexion, 80 degrees of wrist extension. No swelling or TTP Elbows * Right Elbow: Full ROM. No swelling or TTP. No TTP of the medial and lateral epicondyles * Left Elbow: Full ROM. No swelling or TTP. No TTP of the medial and lateral epicondyles Shoulders * Right shoulder: Decreased ROM. No swelling noted. No TTP of the AC joint, subacromial bursa or posterior shoulder * Left shoulder: Full ROM. No swelling noted. No TTP of the AC joint, subacromial bursa or posterior shoulder Hips * Right hip: Good ROM. No pain elicited with hip flexion/internal rotation/external rotation * Left hip: Good ROM. No pain elicited with hip flexion/internal rotation/external rotation Hip bursa: No tenderness to palpation bilaterally Knees * Right knee: Full ROM. No swelling noted. No TTP of the knee joint lie or pes anserine bursa * Left knee: Full ROM. No swelling noted. No TTP of the knee joint lie or pes anserine bursa. * Crepitations felt bilaterally Ankles * Right ankle: Good ankle dorsiflexion and plantar flexion. No swelling. No TTP of the ankle joint * Left ankle: Good ankle dorsiflexion and plantar flexion. No swelling. No TTP of the ankle joint Feet * Right foot: Negative squeeze test * Left foot: Negative squeeze test Tender points? 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 Had a very long discussion with patient about the pathophysiology of osteoarthritis including the lack of cartilage and the bone response to that by creating more bone which results in osteophytes which can then lead to pain and possible swelling. There is no evidence of synovitis involving the MCPs. Her history is not consistent with rheumatoid arthritis. Unfortunately there is no treatment for erosive osteoarthritis and treatment mainly is related to pain management. We will check x-rays to confirm erosive osteoarthritis as we could try either Plaquenil or methotrexate to see if that may help with her pain. We will also get lumbar x-rays and based on those we will either send her to pain management, physical therapy or both. Plan - Check XRs bilateral hands, wrists and L spine - Pain management and PT referral after XRs - Tramadol 50mg bid - Contniue topical diclofenac 1% qid - Paraffin wax baths - RTC 6 months Plan I spent 45 minutes reviewing the record and labs, taking a history, examining the patient, discussing the treatment plan, ordering diagnostic work up, explaining the disease process and documenting in the medical record Orders: Orders XR hand LT min 3V Today M15.9 - Polyosteoarthritis, unspecified XR wrist LT min 3V Today M15.9 - Polyosteoarthritis, unspecified XR hand RT min 3V Today M15.9 - Polyosteoarthritis, unspecified XR wrist RT min 3V Today M15.9 - Polyosteoarthritis, unspecified XR lumbar spine 4V min Today M15.9 - Polyosteoarthritis, unspecified Medications: New tramadol 50 mg PO BID 180 tabs 1RF pain 90 days M15.9 - Polyosteoarthritis, unspecified Coding Level of Care Code New Pt Level 4 (43570) Diagnoses Polyarticular osteoarthritis M15.9
--- OUTSIDE RECORDS SUMMARY | 2025-06-01 11:44 | XMS_ITS | Clinical Summary ---
Author Organization [facility] Address [address] [place] [address] Care Team Providers Care Insurance Defense Attorney Name Role Phone Unavailable Primary Care Provider [...] Vaccine ( season) 2024 Influenza Vaccine (#1) 2025 RSV Immunization Adult Patients (1 - 1-dose 75+ series) 2037 HIB [...] age to complete this topic Meningococcal B Vaccine Aged Out No l onger eligible based on patient's age to complete [...] Routine screening. No current breast complaints. No family history of breast cancer Comparison: Multiple [...] typically benign parenchymal asymmetries IMPRESSION: : 1. No mammographic evidence of [...] RESULTING AGENCY - 04/10/2018 5:00 PM EDT [id number] THINPREP PAP, IMAGED: NEGATIVE FOR SQUAMOUS INTRAEPITHELIAL LESION AND MALIGNANCY . RESULT OF APTIMA HIGH RISK HPV ASSAY: NEGATIVE (SEROTYPES 16,18,31,33,35,39,45,51,52,56,58,59,66,68) MANNY CASTRO, MONSE(ASCP) (CASE ELECTRONICALLY SIGNED 04 10 2018) ADEQUACY: SATISFACTORY. ENDOCERVICAL/TRANSFORMATION ZONE COMPONENT PRESENT. SOURCE: THINPREP PAP HPV ANY DX: REFLEX 16 AND 18, CERVICAL, IMAGED: CLINICAL INFORMATION: HPV ANY DIAGNOSIS. Z12.4, Z01.419, MENOPAUSE, PAP HX: NEGATIVE us Marta Carrion MD LAB CYTOLOGY ORDERABLES Final Result HISTORICAL TESTING LAB RESULTING AGENCY from Last 3 Months or Most Recently Relevant to Health Maintenance
== END 2025-06-01 11:37 | disposition home or self-care (01) ==
LOC: HO.RHE 10:43
PROVIDERS: PCP Nurse Practitioner Family; Visit Provider Student in an Organized Health Care Education/Training Program
DX: M15.9 Polyosteoarthritis, unspecified (principal)
CPT/HCPCS: 99204

== ENCOUNTER 2025-07-15 13:13 | Outpatient (AMB) | payer OTHER, SELFPAY ==
--- OUTSIDE RECORDS SUMMARY | 2025-07-15 13:24 | XMS_ITS | Encounter Summary ---
Author Organization [facility] Address [address] [place] [address] Care Team Providers Care Manager Bank Name Role Phone Fidelia Victoria MD Primary Care Provider Unavail able [facility]ly [facility], Pcp Primary Care Provider Unavailabl e Encounter Details Date Type Department Care Team Description 04/01/2019 Hot Oiler Report Medical Records [address] [place] [id number] Tatiana Gage MD Social History Tobacco Use Types Packs/Day Years Used Date Smoking Tobacco: Former Smokeless Tobacco: Never Comments:quit 2002, unsure o f exact date Alcohol Use Standard Drinks/Week Comments No 0 (1 standard drink = 0.6 oz pur e alcohol) Sex Assigned at Date Recorded Not on file documented as of this encounter Plan of Treatment Not on file documented as of this encounter Visit Diagnoses Not on filedocumented in this encounter Care Teams Manager Bank Relationship Specialty Start Date End Date Fidelia Victoria MD PCP - General Internal Medicine 02/06/17 10/17/21 [place], Pcp PCP - General Internal Medicine 10/18/21 documented as of this encounter
--- OUTSIDE RECORDS SUMMARY | 2025-07-15 13:25 | XMS_ITS | Clinical Summary ---
Author Organization [facility] Address [address] [place] [address] Care Team Providers Care Package Dye Stand Loader Name Role Phone Unavailable Primary Care Provider [...] Panel) 10/28/2022 Colorectal Cancer Screening: Colonoscopy 10/28/2022 HIV Screening 10/28/2022 Hepatitis C Screening 10/28/2022 Social Influencers of Health Screening 10/28/2022 Hypertension/CHF/CAD Annual BMP Blood Test 11/10/2022 Breast Cancer Screening 11/29/2022 11/29/19 21, 06/11/2019, 06/04/2018, Additional history exists COVID-19 Vaccine ( - 2023- season) 2024 Depression Screening 11/25/2024 Influenza Vaccine (#1) 2025 RSV Immunization Adult [...] RESULTING AGENCY - 04/10/2018 5:00 PM EDT [id number] THINPREP PAP, IMAGED: NEGATIVE FOR SQUAMOUS INTRAEPITHELIAL [...]
[2025-07-15 13:34] VITALS: BP 166/68; PULSE 71; O2SAT 98; BMI 26.5
--- NOTE | 2025-07-15 13:34 | HO.NEPHOV ---
Vital Signs 07/15/25 13:34 Height 5 ft 6 in Weight 164 lb BMI 26.5 BP 166/68 H Blood Pressure Location Lt brachial Position Sitting Pulse 71 Pulse Source Pulse Oximeter Pulse Oximetry (%) 98 Oxygen Delivery Method Room Air Intake Visit Reasons: Anemia/ Conf Prep Manager Required: No Accompanied by: Self / Same As Patient Allergies penicillin V Allergy (Severe, Verified 07/15/25 13:36) Anaphylaxis amlodipine Allergy (Intermediate, Verified 07/15/25 13:36) welts on body meloxicam Allergy (Intermediate, Verified 07/15/25 13:36) Nausea, lightheaded REINALDO Inhibitors (REINALDO INHIBITORS) Allergy (Unknown, Verified 07/15/25 13:36) ALL SORTS OF DIFF RXNS hydrochlorothiazide Allergy (Unknown, Verified 07/15/25 13:36) dizziness Sulfa (Sulfonamide Antibiotics) (SULFA (SULFONAMIDE ANTIBIOTICS)) Allergy (Unknown, Verified 07/15/25 13:36) RASH,ITCHY celecoxib Adverse Reaction (Unknown, Verified 07/15/25 13:36) flu-like symptoms lisinopril Adverse Reaction (Verified 07/15/25 13:36) Cough metformin Adverse Reaction (Verified 07/15/25 13:36) Stomach Upset Moexipril HCl Allergy (Unknown, Uncoded 03/18/24 14:47) Mouth, cheek & feet tingling. shaking, nausea Medication List - Last Reconciled 07/15/25 by Robinson Rivera MD atorvastatin 20 mg PO DAILY carvedilol 25 mg PO BID cholecalciferol (vitamin D3) 25 mcg PO DAILY cyclobenzaprine 10 mg PO BEDTIME PRN dicyclomine 20 mg PO QID diltiazem HCl ER 60 mg PO QPM famotidine 20 mg PO DAILY PRN metformin ER 500 mg PO DAILY methylcellulose (laxative) (Citrucel) 1,000 mg PO DAILY PRN olmesartan 40 mg PO DAILY omeprazole 20 mg PO DAILY [Probiotic 1 B[place] 1 cap PO DAILY] tramadol 50 mg PO BID 90 days HPI Comments Details: Matilda is a pleasant 64 year woman with a history of hypertension. She has had hypertension for almost 30 years. She was started various medications. There has been significant fluctuation of blood pressure and hence this referral. Currently she is on olmesartan 40 mg and carvedilol 25 mg b.i.d. She has been monitoring blood pressure at home. Most of the blood pressure readings are acceptable. Few readings were around 170/77 and there was a reading around 103/49. She has been asymptomatic. She underwent renal ultrasonogram and there was no evidence of renal artery stenosis by Doppler back in 2020. Recently diagnosed with diabetes mellitus and started on metformin. History of significant arthritis. For last few months she has been taking ibuprofen 2 tablets a day along with Tylenol. History of pancreatitis. History of significant iron deficiency anemia in 2020. Hemoglobin was as low as 6.8. Underwent endoscopy and colonoscopy. Not on any iron supplementation at present. 10/12/24 Home BP is excellent with few low readings 07/15/25 The patient is a 65-year-old female presenting with concerns regarding elevated blood pressure readings at home. Home systolic blood pressure ranges from 166 to 175 mmHg despite carvedilol and diltiazem. Blood pressure is lower when relaxed but remains elevated otherwise. Patient adheres to medication and reduces salt intake. Blood pressure remains inconsistent, leading to consideration of 24-hour monitoring. MEDICATIONS: - Carvedilol for hypertension - Diltiazem for hypertension SOCIAL HISTORY: - The patient is mindful of her salt intake, opting for low sodium options and avoiding added salt in meals. [facility] Medical History IBS (irritable bowel syndrome) HLD (hyperlipidemia) HTN (hypertension) Iron (Fe) deficiency anemia Diverticulosis Surgical History History of esophagogastroduodenoscopy (EGD) Hx of colonoscopy Family History Father Cancer Sister Colon cancer Brother CAD (coronary artery disease) Social History Household Members: Spouse Housing: House Alcohol intake: never Patient Tobacco Use Status: Former Tobacco user service: No Current occupational status: employed Physical Exam Vital Signs: Last Vital Signs Pulse 71 07/15/25 13:34 BP 166/68 H 07/15/25 13:34 Pulse Ox 98 07/15/25 13:34 Oxygen Delivery Method Room Air 07/15/25 13:34 BMI result Body Mass Index 26.5 Blood pressure is symmetrical in both upper extremities at 140/60. No orthostatic changes Const General: comfortable; No acute distress Orientation/consciousness: patient oriented x3 Eyes General: appearance normal, both eyes and all related structures Visual Pablo: normal visual pablo by confrontation Neck Neck: Yes supple and Yes no JVD Resp Effort & Inspection: normal respiratory effort and respiratory effort not decreased Auscultation: rhonchi Cardio Palpation: no palpable S3 and no palpable S4 Heart sounds: no rubs GI Inspection: Yes normal to inspection Palpation (GI): Soft to palpation Percussion: Yes normal to percussion Auscultation: normal bowel sounds General: Yes no CVA tenderness Back/Spine/Pelvis Back: no CVA tenderness Skin General skin exam: no petechiae and no purpura Neuro General: patient oriented x3 and no focal motor deficits Extrem General: No clubbing and No edema Results Reviewed Nephrology Results: Renal US 12/05/21 Assessment & Plan Assessment & Plan (1) Uncontrolled hypertension: Code(s): I10 - Essential (primary) hypertension Category: Medical (2) Iron (Fe) deficiency anemia: Code(s): D50.9 - Iron deficiency anemia, unspecified Category: Medical Qualifiers: Iron deficiency anemia type: unspecified iron deficiency Qualified Code(s): D50.9 - Iron deficiency anemia, unspecified Plan [age] year woman with longstanding hypertension. Based on 24 hour blood pressure monitoring I added Cardizem 60 mg q.p.m. BP better controlled based on home readings Encouraged her to stay on low-sodium diet. No changes today 07/15/25 BP sub optimal Repeat 24 hr ABPM and readjust medications Orders: Orders AMB 24 HR B/P Monitor PLACEMENT Today I10 - Essential (primary) hypertension Basic Metabolic Panel 3 Weeks I10 - Essential (primary) hypertension Coding Level of Care Code Est Pt Level 4 (97302) Diagnoses Uncontrolled hypertension I10 Iron deficiency anemia, unspecified iron deficiency anemia type D50.9 Iron deficiency anemia type: unspecified iron deficiency
== END 2025-07-15 13:46 | disposition home or self-care (01) ==
LOC: HO.HKA 13:13
PROVIDERS: PCP Nurse Practitioner Family; Visit Provider Internal Medicine Hypertension Specialist
DX: I10 Essential (primary) hypertension (principal); D50.9 Iron deficiency anemia, unspecified
CPT/HCPCS: 99214

== ENCOUNTER 2025-08-19 09:58 | Outpatient (AMB) | payer OTHER, SELFPAY ==
[2025-08-19 10:21] VITALS: BP 146/62; PULSE 68; O2SAT 97
--- NOTE | 2025-08-19 10:21 | HO.NEPHOV_ITS ---
Vital Signs 08/19/25 10:21 Height 5 ft 6 in BP 146/62 H Blood Pressure Location Lt brachial Position Sitting Pulse 68 Pulse Source Monitor Pulse Oximetry (%) 97 Oxygen Delivery Method Room Air Intake Visit Reasons: ABPM Results , conf. Allergies penicillin V Allergy (Severe, Verified 07/15/25 13:36) Anaphylaxis amlodipine Allergy (Intermediate, Verified 07/15/25 13:36) welts on body meloxicam Allergy (Intermediate, Verified 07/15/25 13:36) Nausea, lightheaded REINALDO Inhibitors (REINALDO INHIBITORS) Allergy (Unknown, Verified 07/15/25 13:36) ALL SORTS OF DIFF RXNS hydrochlorothiazide Allergy (Unknown, Verified 07/15/25 13:36) dizziness Sulfa (Sulfonamide Antibiotics) (SULFA (SULFONAMIDE ANTIBIOTICS)) Allergy (Unknown, Verified 07/15/25 13:36) RASH,ITCHY celecoxib Adverse Reaction (Unknown, Verified 07/15/25 13:36) flu-like symptoms lisinopril Adverse Reaction (Verified 07/15/25 13:36) Cough metformin Adverse Reaction (Verified 07/15/25 13:36) Stomach Upset Moexipril HCl Allergy (Unknown, Uncoded 03/18/24 14:47) Mouth, cheek & feet tingling. shaking, nausea HPI Comments Details: Matilda is a pleasant 64 year woman with a history of hypertension. She has had hypertension for almost 30 years. She was started various medications. There has been significant fluctuation of blood pressure and hence this referral. Currently she is on olmesartan 40 mg and carvedilol 25 mg b.i.d. She has been monitoring blood pressure at home. Most of the blood pressure readings are acceptable. Few readings were around 170/77 and there was a reading around 103/49. She has been asymptomatic. She underwent renal ultrasonogram and there was no evidence of renal artery stenosis by Doppler back in 2020. Recently diagnosed with diabetes mellitus and started on metformin. History of significant arthritis. For last few months she has been taking ibuprofen 2 tablets a day along with Tylenol. History of pancreatitis. History of significant iron deficiency anemia in 2020. Hemoglobin was as low as 6.8. Underwent endoscopy and colonoscopy. Not on any iron supplementation at present. 10/12/24 Home BP is excellent with few low readings 07/15/25 The patient is a 65-year-old female presenting with concerns regarding elevated blood pressure readings at home. Home systolic blood pressure ranges from 166 to 175 mmHg despite carvedilol and diltiazem. Blood pressure is lower when relaxed but remains elevated otherwise. 08/19/25 History of Present Illness - The patient is a 65-year-old female presenting with hypertension management. - Hypertension monitored with 24-hour ambulatory blood pressure, showing elevated readings. - Medication adherence includes carvedilol, diltiazem, and olmesartan. - Previous intolerance to amlodipine due to gastrointestinal issues. - Family history of maternal hypertension. - Dietary changes include reduced salt intake. [facility] Medical History IBS (irritable bowel syndrome) HLD (hyperlipidemia) HTN (hypertension) Iron (Fe) deficiency anemia Diverticulosis Surgical History History of esophagogastroduodenoscopy (EGD) Hx of colonoscopy Family History Father Cancer Sister Colon cancer Brother CAD (coronary artery disease) Social History Household Members: Spouse Housing: House Alcohol intake: never Patient Tobacco Use Status: Former Tobacco user service: No Current occupational status: employed Physical Exam Vital Signs: Last Vital Signs Pulse 68 08/19/25 10:21 BP 146/62 H 08/19/25 10:21 Pulse Ox 97 08/19/25 10:21 Oxygen Delivery Method Room Air 08/19/25 10:21 Comfortable Neck supple no JVD. Lungs entry equal no rales. Heart S1-S2 heard no gallop or rub. Abdomen soft nontender. Neuro alert awake oriented. No asterixis. Extremities no edema. Office Procedures 24 B/P Monitor Interpretation Details: Daytime average 148/72 Nighttime average 142/81 24 hour average was 146/75. Evidence of white coat hypertension present No nocturnal dipping. CPT: 24990 24 Hour Blood Pressure Monitor Reading Procedure code (CPT) selection complete Results Reviewed Nephrology Results: Renal US 12/05/21 Assessment & Plan Assessment & Plan (1) Uncontrolled hypertension: Code(s): I10 - Essential (primary) hypertension Category: Medical (2) Iron (Fe) deficiency anemia: Code(s): D50.9 - Iron deficiency anemia, unspecified Category: Medical Qualifiers: Iron deficiency anemia type: unspecified iron deficiency Qualified Code(s): D50.9 - Iron deficiency anemia, unspecified (3) White coat syndrome with diagnosis of hypertension: Code(s): I10 - Essential (primary) hypertension Category: Medical Plan Essential Hypertension No evidence of renal artery stenosis based on renal Doppler few years ago - Increase diltiazem to 120 mg Q PM . - Continue carvedilol and olmesartan. Watch HR - Monitor blood pressure at home. - Follow-up in three months. Patient Instructions - Take diltiazem 120 mg once at night. - Continue taking carvedilol and olmesartan as prescribed. - Monitor your blood pressure at home and keep a log. - Follow up in three months for reassessment. Orders: Orders AMB 24 HR B/P Monitor INTERPRETATION Today I10 - Essential (primary) hypertension Basic Metabolic Panel 3 Months I10 - Essential (primary) hypertension Medications: Changed From diltiazem HCl ER 60 mg PO QPM 90 caps 1RF To diltiazem HCl ER 120 mg PO QPM 90 caps 1RF Coding Level of Care Code Est Pt Level 4 (65837) Diagnoses Uncontrolled hypertension I10 Iron deficiency anemia, unspecified iron deficiency anemia type D50.9 Iron deficiency anemia type: unspecified iron deficiency White coat syndrome with diagnosis of hypertension I10 CPT Codes - CPT: 74828 24 Hour Blood Pressure Monitor Reading ([id number])
--- OUTSIDE RECORDS SUMMARY | 2025-08-19 12:00 | XMS_ITS | Clinical Summary ---
Author Organization [facility] Address [address] [place] [address] Care Team Providers Care Voice Writing Reporter Name Role Phone Unavailable Primary Care Provider [...] 11/29/19 21, 06/11/2019, 06/04/2018, Additional history exists Depression Screening 11/25/2024 COVID-19 Vaccine ( season) 2025 Influenza Vaccine (#1) 2025 RSV Immunization Adult [...] RESULTING AGENCY - 04/10/2018 5:00 PM EDT [id number] THINPREP PAP, IMAGED: NEGATIVE FOR SQUAMOUS INTRAEPITHELIAL [...]
== END 2025-08-19 10:38 | disposition home or self-care (01) ==
LOC: HO.HKA 09:58
PROVIDERS: PCP Nurse Practitioner Family; Visit Provider Internal Medicine Hypertension Specialist
DX: I10 Essential (primary) hypertension (principal); D50.9 Iron deficiency anemia, unspecified
CPT/HCPCS: 93790; 99214

== ENCOUNTER → 2025-08-19 09:58 | Outpatient (BNVA) | payer OTHER, SELFPAY | PROVIDERS: PCP Nurse Practitioner Family; Visit Provider Internal Medicine Hypertension Specialist | DX: I10 Essential (primary) hypertension (principal) | CPT/HCPCS: 93786; 93788 ==

== ENCOUNTER 2025-11-08 11:49 | Outpatient (AMB) | payer OTHER, SELFPAY ==
[2025-11-08 11:53] VITALS: BP 138/62; PULSE 75; O2SAT 96; BMI 27.1
--- NOTE | 2025-11-08 11:53 | HO.NEPHOV ---
Vital Signs 11/08/25 11:53 Height 5 ft 6 in Weight 168 lb BMI 27.1 BP 138/62 Blood Pressure Location Lt brachial Position Sitting Pulse 75 Pulse Source Pulse Oximeter Pulse Oximetry (%) 96 Oxygen Delivery Method Room Air Intake Visit Reasons: 3 mo f/u w/ labs Production Team Manager Required: No Accompanied by: Self / Same As Patient Allergies penicillin V Allergy (Severe, Verified 11/08/25 11:55) Anaphylaxis amlodipine Allergy (Intermediate, Verified 11/08/25 11:55) welts on body meloxicam Allergy (Intermediate, Verified 11/08/25 11:55) Nausea, lightheaded REINALDO Inhibitors (REINALDO INHIBITORS) Allergy (Unknown, Verified 11/08/25 11:55) ALL SORTS OF DIFF RXNS hydrochlorothiazide Allergy (Unknown, Verified 11/08/25 11:55) dizziness Sulfa (Sulfonamide Antibiotics) (SULFA (SULFONAMIDE ANTIBIOTICS)) Allergy (Unknown, Verified 11/08/25 11:55) RASH,ITCHY celecoxib Adverse Reaction (Unknown, Verified 11/08/25 11:55) flu-like symptoms lisinopril Adverse Reaction (Verified 11/08/25 11:55) Cough metformin Adverse Reaction (Verified 11/08/25 11:55) Stomach Upset Moexipril HCl Allergy (Unknown, Uncoded 03/18/24 14:47) Mouth, cheek & feet tingling. shaking, nausea HPI Comments Details: History of Present Illness The patient is a 65-year-old female presenting for follow-up of hypertension. She has a history of white coat hypertension, which was identified on a 24-hour ambulatory blood pressure monitoring. Her current antihypertensive regimen includes carvedilol, olmesartan, and diltiazem 120 mg QPM. The patient was previously intolerant to amlodipine. She reports that she was not taking her olmesartan since January due to a lapse in prescription refill, which she discovered after a communication issue between her pharmacy and primary care provider. She has since resumed taking the medication and reports her blood pressure numbers are much better. She reports minor swelling in her feet but denies any trouble breathing or issues with urination. The patient has not yet completed her ordered lab work but plans to do so today. Results - Past Tests: A 24-hour ambulatory blood pressure monitoring (ABPM) previously showed classic white coat hypertension. [facility] Medical History IBS (irritable bowel syndrome) HLD (hyperlipidemia) HTN (hypertension) Iron (Fe) deficiency anemia Diverticulosis Surgical History History of esophagogastroduodenoscopy (EGD) Hx of colonoscopy Family History Father Cancer Sister Colon cancer Brother CAD (coronary artery disease) Social History Household Members: Spouse Housing: House Alcohol intake: never Patient Tobacco Use Status: Former Tobacco user service: No Current occupational status: employed Physical Exam Exam Exam: Physical Exam General: Awake. Comfortable. HENT: Neck supple. Mucosa moist. Pulmonary: Lungs aeration equal. No rales. Cardiology: Heart S1-S2 heard. No gallop. Abdomen: Soft. Non tender. Bowel sounds normal. Neurologic: No involuntary movements. No myoclonus. Extremities: Tiny swelling in the feet. No rash. Vital Signs: Last Vital Signs Pulse 75 11/08/25 11:53 BP 138/62 11/08/25 11:53 Pulse Ox 96 11/08/25 11:53 Oxygen Delivery Method Room Air 11/08/25 11:53 BMI result Body Mass Index 27.1 Results Reviewed Results Reviewed: Recent creatinine was 0.9. Nephrology Results: Renal US 12/05/21 Assessment & Plan Assessment & Plan (1) Uncontrolled hypertension: Code(s): I10 - Essential (primary) hypertension Category: Medical (2) Iron (Fe) deficiency anemia: Code(s): D50.9 - Iron deficiency anemia, unspecified Category: Medical Qualifiers: Iron deficiency anemia type: unspecified iron deficiency Qualified Code(s): D50.9 - Iron deficiency anemia, unspecified (3) White coat syndrome with diagnosis of hypertension: Code(s): I10 - Essential (primary) hypertension Category: Medical Plan Plan 1. Hypertension - The patient's blood pressure is well-controlled since she resumed taking olmesartan after a period of nonadherence. - Continue the current medication regimen, which includes carvedilol and olmesartan, with no changes at this time. - An order will be placed for lab work, which the patient will complete today. - Follow up in six months, or sooner if her blood pressure readings become elevated. Orders: Orders Complete Blood Count no Diff Today I10 - Essential (primary) hypertension Basic Metabolic Panel Today I10 - Essential (primary) hypertension Coding Level of Care Code Est Pt Level 4 (16399) Diagnoses Uncontrolled hypertension I10 Iron deficiency anemia, unspecified iron deficiency anemia type D50.9 Iron deficiency anemia type: unspecified iron deficiency White coat syndrome with diagnosis of hypertension I10
== END 2025-11-08 12:05 | disposition home or self-care (01) ==
LOC: HO.HKA 11:49
PROVIDERS: PCP Nurse Practitioner Family; Visit Provider Internal Medicine Hypertension Specialist
DX: I10 Essential (primary) hypertension (principal); D50.9 Iron deficiency anemia, unspecified
CPT/HCPCS: 99214

== ENCOUNTER 2025-11-08 11:49 | Outpatient (REF) | payer OTHER, SELFPAY ==
[2025-11-08 13:26] LABS: Hematocrit 33.5 % (37.0-47.0); Hemoglobin 10.4 g/dl (12.0-16.0); Mean Corpuscular HGB Conc 31.0 g/dl (31.0-35.0); Mean Corpuscular Hemoglobin 24.5 pg (27.0-33.0); Mean Corpuscular Volume 78.8 fL (80.0-98.0); NRBC Abs Auto 0.000 X10*3/uL (0.0-0.012); NRBC Pct Auto 0.0 /100WBC (0.0-0.2); Platelet Count 289 X10*3/uL (160-400); Red Blood Count 4.25 X10*6/uL (4.20-5.50); White Blood Count 8.4 X10*3/uL (4.8-10.8)
[2025-11-08 13:49] LABS: Anion Gap 14 (12-20); Blood Urea Nitrogen 23 mg/dL (9-16); Calcium 9.4 mg/dL (8.4-10.2); Carbon Dioxide 23 mmol/L (22-29); Chloride 109 mmol/L (96-108); Estimated Glomerular Filt Rate > 60; Potassium 4.6 mmol/L (3.3-5.1); Sodium 141 mmol/L (135-145)
--- OUTSIDE RECORDS SUMMARY | 2025-11-08 17:49 | XMS_ITS | Clinical Summary ---
Author Organization [facility] Address [address] [place] [address] Care Team Providers Care Sheet Rock Taper Name Role Phone Unavailable Primary Care Provider [...] on file Sexual Orientation Not on file Plan of Treatment Health Maintenance Due Date Last Done Comments Colorectal Cancer Screening: Colonoscopy 1962 Diabetes: Annual GFR (Glomerular Filtration Rate) 1962 Diabetes: Annual Foot Exam 1972 Diabetes: Annual Retina Eye Exam 1972 Pneumococcal Vaccine: 50+ Years (1 of 1 - PCV) 2012 Zoster Vaccines (1 of 2) 2012 Cervical Cancer Screening: Pap Smear 04/08/2021 04/08/2018 DTaP,Tdap,and Td Vaccines (3 - Td or Tdap) 11/21/2021 11/21/2011, 07/05/2005 Cholesterol Screening (Lipid Panel) 10/28/2022 HIV Screening 10/28/2022 Hepatitis C Screening 10/28/2022 Social Influencers of Health Screening 10/28/2022 Hypertension/CHF/CAD Annual BMP Blood Test 11/10/2022 Breast Cancer Screening 11/29/2022 11/29/19 21, 06/11/2019, 06/04/2018, Additional history exists Depression Screening 11/25/2024 COVID-19 Vaccine ( season) 2025 11/29/2021, 04/11/2021, 03/21/2021 Influenza Vaccine (#1) 2025 Diabetes: Annual Urine Albumin-Creatinine Ratio (uACR) 11/08/2025 Diabetes: Blood Sugar Control Test (HGBA1C) 11/08/2025 RSV Immunization Adult Patients (1 - 1-dose [...] Recommendation: Routine annual screening mammography is recommended Fidelia Victoria MD IMG XR PROCEDURES Final Resu lt * Pap smear (04/08/2018) 04/08/2018 Narrative HISTORICAL TESTING LAB RESULTING AGENCY - 04/10/2018 5:00 PM EDT [id number] THINPREP PAP, IMAGED: NEGATIVE FOR SQUAMOUS INTRAEPITHELIAL LESION AND MALIGNANCY . RESULT OF APTIMA HIGH RISK HPV ASSAY: NEGATIVE (SEROTYPES 16,18,31,33,35,39,45,51,52,56,58,59,66,68) MONSE HOOVER(ASCP) (CASE ELECTRONICALLY SIGNED 04 10 2018) ADEQUACY: [...]
== END 2025-11-08 11:50 | disposition home or self-care (01) ==
LOC: HO.LAB 11:49
PROVIDERS: PCP Nurse Practitioner Family; Visit Provider Internal Medicine Hypertension Specialist
DX: I10 Essential (primary) hypertension (principal); D50.9 Iron deficiency anemia, unspecified; Z87.891 Personal history of nicotine dependence; Z79.899 Other long term (current) drug therapy
CPT/HCPCS: 36415; 80048; 85027